=== PATIENT | female | born 1945 | race Caucasian/White ===

== ENCOUNTER 2019-03-06 16:37 | Emergency (ER) | payer MEDICARE, OTHER ==
[~2019-03-06] VITALS: Ht 157.5 cm; Wt 95.9 kg
[2019-03-06] MEDS ORDERED: morphine INJ 10 MG/ML 1ML (SYR OR VIAL) IVP STA (17:07)
[2019-03-06 17:15] LABS: HEMATOCRIT 32 % (35-52); HEMOGLOBIN 10.3 G/DL (11.5-16.0); MEAN CORPUSCULAR HEMOGLOBIN 28 PG (25-34); MEAN CORPUSCULAR HGB CONC 32 G/DL (32-36); MEAN CORPUSCULAR VOLUME 88 FL (80-99); PLATELET COUNT 187 10^3/uL (130-400); RED CELL DISTRIBUTION WIDTH 15.2 % (10.0-14.5); WHITE BLOOD COUNT 5.4 10^3/uL (4.3-11.0)
--- NOTE | 2019-03-06 17:15 | ED Lower Extremity ---
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 She had a heart cath Saturday at [facility] where they went in through that leg. She has been doing well since then but then tonight after grocery shopping with her he got home and she had sudden onset of pain in her right leg. She was having pain so bad that she was having difficulty walking into the house. She states that she had no trauma to her leg. Her right lower extremity was cool to the touch and darker in color. She had tried elevating her leg at home but it was not helping. She came to the emergency department to be evaluated. She denies any fever or chills. She had not been having pain like this until tonight. She has been having swelling in both of her legs but that went down after she had been prescribed a diuretic and was taking it. She does have calf pain on the right leg now as well. Allergies and Home Medications Allergies Coded Allergies: acetaminophen (Verified Allergy, Unknown, 03/06/19) amoxicillin (Verified Allergy, Unknown, 03/06/19) azithromycin (Verified Allergy, Unknown, 03/06/19) baclofen (Verified Allergy, Unknown, 03/06/19) clarithromycin (Verified Allergy, Unknown, 03/06/19) lisinopril (Verified Allergy, Unknown, 03/06/19) meperidine (Verified Allergy, Unknown, 03/06/19) propoxyphene (Verified Allergy, Unknown, 03/06/19) Patient Home Medication List Home Medication List Reviewed: Yes Review of Systems Constitutional: No chills, No fever EENTM: no symptoms reported Respiratory: no symptoms reported Cardiovascular: no symptoms reported Gastrointestinal: no symptoms reported Genitourinary: no symptoms reported Musculoskeletal: see HPI Skin: see HPI, change in color (RLE was darker in color this evening with the pain) Past Lhkoofj-Drrkjt-Dguhns Hx Past Med/Social Hx: Reviewed Nursing Past Med/Soc Hx Patient Social History Recent Foreign Travel: No Contact w/Someone Who Travel: No Past Medical History Surgeries: Yes CABG, Coronary Stent, Open Heart Surgery Cardiac: Yes Coronary Artery Disease, High Cholesterol, Hypertension Endocrine: Yes Diabetes, Non-Insulin dep Physical Exam Vital Signs Vital Signs - First Documented 03/06/19 16:40 Temp 36.7 Pulse 84 Resp 14 B/P (MAP) 135/63 (87) Pulse Ox 98 O2 Delivery Room Air Capillary Refill : Height, Weight, BMI Height: '" Weight: lbs. oz. kg; BMI Method: General Appearance: WD/WN, mild distress HEENT: pharynx normal Neck: non-tender, full range of motion, supple, normal inspection Cardiovascular: regular rate, rhythm, other (unable to palpate DP or PT on RLE. 2/4 DP and PT on LLE. Using doppler still unable to find a pulse on RLE. ) Respiratory: chest non-tender, lungs clear, normal breath sounds Gastrointestinal: normal bowel sounds, soft, no pulsatile mass Legs: right leg pain Knees: right knee pain Ankles: right ankle pain Feet: right foot pain Neurologic/Tendon: normal sensation, normal motor functions Neurologic/Psychiatric: alert, normal mood/affect, oriented x 3 Skin: cool (RLE is cool to touch compared to LLE and has slower CR. Unable to find pulses in PT or DP even with doppler on right foot. ), other (dusky color on RLE compared to LLE and decreased CR on right compared to left. ) Progress/Results/Core Measures Results/Orders Lab Results Laboratory Tests Test 03/06/19 16:51 Range/Units White Blood Count 5.4 4.3-11.0 10^3/uL Red Blood Count 3.65 L 4.35-5.85 10^6/uL Hemoglobin 10.3 L 11.5-16.0 G/DL Hematocrit 32 L 35-52 % Mean Corpuscular Volume 88 80-99 FL Mean Corpuscular Hemoglobin 28 25-34 PG Mean Corpuscular Hemoglobin Concent 32 32-36 G/DL Red Cell Distribution Width 15.2 H 10.0-14.5 % Platelet Count 187 130-400 10^3/uL Mean Platelet Volume 10.0 7.4-10.4 FL Neutrophils (%) (Auto) 50 42-75 % Lymphocytes (%) (Auto) 36 12-44 % Monocytes (%) (Auto) 11 0-12 % Eosinophils (%) (Auto) 2 0-10 % Basophils (%) (Auto) 1 0-10 % Neutrophils # (Auto) 2.7 1.8-7.8 X 10^3 Lymphocytes # (Auto) 2.0 1.0-4.0 X 10^3 Monocytes # (Auto) 0.6 0.0-1.0 X 10^3 Eosinophils # (Auto) 0.1 0.0-0.3 10^3/uL Basophils # (Auto) 0.0 0.0-0.1 10^3/uL Prothrombin Time 13.0 12.2-14.7 SEC INR Comment 0.9 0.8-1.4 Activated Partial Thromboplast Time 29 24-35 SEC Sodium Level 138 135-145 MMOL/L Potassium Level 4.0 3.6-5.0 MMOL/L Chloride Level 97 L 98-107 MMOL/L Carbon Dioxide Level 23 21-32 MMOL/L Anion Gap 18 H 5-14 MMOL/L Blood Urea Nitrogen 24 H 7-18 MG/DL Creatinine 1.78 H 0.60-1.30 MG/DL Estimat Glomerular Filtration Rate 28 BUN/Creatinine Ratio 13 Glucose Level 166 H 70-105 MG/DL Calcium Level 9.8 8.5-10.1 MG/DL Corrected Calcium 9.8 8.5-10.1 MG/DL Total Bilirubin 0.5 0.1-1.0 MG/DL Aspartate Amino Transf (AST/SGOT) 34 5-34 U/L Alanine Aminotransferase (ALT/SGPT) 26 0-55 U/L Alkaline Phosphatase 89 40-136 U/L Total Protein 6.5 6.4-8.2 GM/DL Albumin 4.0 3.2-4.5 GM/DL My Orders Orders - DANITZA JARVIS MD Comprehensive Metabolic Panel (03/06/19 17:06) Cbc With Automated Diff (03/06/19 17:06) Protime With Inr (03/06/19 17:06) Partial Thromboplastin Time (03/06/19 17:06) Ed Iv/Invasive Line Start (03/06/19 17:06) Morphine Injection (Morphine Injection (03/06/19 17:07) Monitor-Rhythm Ecg Trace Only (03/06/19 17:08) Heparin Drip 46199 Unit/500ml (Heparin (03/06/19 17:43) Heparin (Bolus Per Protocol) (Heparin (B (03/06/19 17:45) Ns Iv 1000 Ml (Sodium Chloride 0.9%) (03/06/19 17:45) Medications Given in ED Current Medications Medications Dose Ordered Sig/Kristen Route Start Time Stop Time Status Last Admin Dose Admin Heparin Sodium (Porcine) 5,000 unit ONCE ONCE IV 03/06/19 17:45 03/06/19 17:46 DC 03/06/19 17:49 5,000 UNIT Heparin Sodium/ Dextrose 500 ml @ 0 mls/hr Q0M ONCE IV 03/06/19 17:43 03/06/19 17:46 DC 03/06/19 17:53 24 MLS/HR Vital Signs/I&O 03/06/19 16:40 Temp 36.7 Pulse 84 Resp 14 B/P (MAP) 135/63 (87) Pulse Ox 98 O2 Delivery Room Air Progress Progress Note #1: Progress Note check labs and try to do CT angiogram of RLE to evaluate the blood flow to the extremity since unable to palpate pulses in leg or find pulses by doppler in RLE either. Progress Note #2: Progress Note Labs show normal WBC count, anemia with Hgb of 10.3. Her Chemistry shows elevated Cr to 1.78 with GFR of 28 so will not be able to do CT angiogram. Ultrasound is not available here either. will contact [facility] to try and arrange transfer, especially since the weather is getting worse and will have problems with EMS transporting pt if the weather and roads get worse. 1717 d/speedy Dominguez at [facility] transfer center and he will get me in touch with the ED doc for a transfer. 1741 Dr. Mitchell from ED at [facility] called back and accepted pt in transfer. Critical Care Note Critical Care Total Time (minutes) 45 Progress 45 minutes of critical care time was spent with the patient. This time was excluding separately billable procedures. Time was spent in obtaining history from patient and family and reviewing outside records, ordering labs and reviewing results, ordering intervention and reviewing response, discussion with consultants and pt and family, documentation in the chart. She was at risk for losing her leg due to circulation. Departure Impression Primary Impression: Acute pain of right lower extremity Additional Impression: Pulseless disease Disposition: 02 XFER SHT-TRM HOSP Condition: Critical Transfer Transfer Reason: Exceeds level of care Time Spoke to Accepting Phy: 17:41 Transfer Progress Notes D/W Dr. Mitchell from the ED at [facility]. Since unable to locate pulses in RLE with palpation or doppler and she has Cr of 1.78 with GFR of 28 I am unable to perform a CT angiogram of the LE and I would still need to get her to a vascular surgeon for evaluation. I also have no ultrasound available. He accepted pt to the ED for evaluation. Will start IVF for hydration to help her Cr and GFR as well as heparin bolus and drip to help if there is a clot. Transfer Facility: [facility] Method of Transfer: EMS Departure-Patient Inst. Referrals: GENEVIEVE HUFF DO (PCP/Family) Primary Care Physician DANITZA JARVIS MD Mar 06, 2019 17:15
[2019-03-06 17:16] LABS: BASOPHILS % (AUTO) 1 % (0-10); EOSINOPHILS # (AUTO) 0.1 10^3/uL (0.0-0.3); EOSINOPHILS % (AUTO) 2 % (0-10); LYMPHOCYTES % (AUTO) 36 % (12-44); MONOCYTES # (AUTO) 0.6 X 10^3 (0.0-1.0); MONOCYTES % (AUTO) 11 % (0-12); NEUTROPHILS # (AUTO) 2.7 X 10^3 (1.8-7.8); NEUTROPHILS % (AUTO) 50 % (42-75)
[2019-03-06 17:21] LABS: INR 0.9 (0.8-1.4)
[2019-03-06 17:32] LABS: BILIRUBIN,TOTAL 0.5 MG/DL (0.1-1.0); CALCIUM 9.8 MG/DL (8.5-10.1); CREATININE SERUM 1.78 MG/DL (0.60-1.30); TOTAL PROTEIN 6.5 GM/DL (6.4-8.2)
[2019-03-06] MEDS ORDERED: HEParin DRIP 25000 UNIT/500ML 500 ML IV ONE (17:43)
[2019-03-06] MEDS ORDERED: NS IV 1000 ML 1,000 ML IV STA (17:45)
[2019-03-06] MEDS ORDERED: HEParin 1000 UNIT/ML (10ML VIAL) FOR BOLUS IV ONE (17:45)
[2019-03-06 18:05] VITALS: BP 143/56
== END 2019-03-06 18:05 | disposition short-term general hospital (02) ==
LOC: ER FS 16:40
DX: M79.604 Pain in right leg (principal); M31.4 Aortic arch syndrome [Takayasu]; I10 Essential (primary) hypertension; E78.00 Pure hypercholesterolemia, unspecified; I25.10 Atherosclerotic heart disease of native coronary artery without angina pectoris; E11.9 Type 2 diabetes mellitus without complications; Z88.6 Allergy status to analgesic agent; Z95.5 Presence of coronary angioplasty implant and graft; Z88.0 Allergy status to penicillin; Z88.2 Allergy status to sulfonamides; Z88.1 Allergy status to other antibiotic agents; Z95.1 Presence of aortocoronary bypass graft
CPT/HCPCS: 36415; 80053; 85025; 85610; 85730; 93041

== ENCOUNTER 2019-07-28 21:53 | Emergency (ER) | payer MEDICARE, OTHER ==
[~2019-07-28] VITALS: Ht 157.5 cm; Wt 86.4 kg
--- OUTSIDE RECORDS SUMMARY | 2019-07-28 21:59 | XMS REPORT | Continuity of Care Document ---
Author Organization Unknown Address Unknown Phone Unavailable Allergies Active Description Code Type Severity Reaction Onset Reported/Identified Relationship to Patient Clinical Status Yes acetaminophen [id number] Torin g Allergy Unknown N/A 03/06/2019 Yes amoxicillin [id number] Drug Aller gy Unknown N/A 03/06/2019 Yes azithromycin [id number] Drug Allergy Unknown N/A 03/06/2019 Yes baclofen [id number] Drug Allergy Unknown N/A 03/06/[id number] ug Allergy Unknown N/A 03/06/2019 Yes lisinopril [id number] Drug Allerg y Unknown N/A 03/06/2019 Yes meperidine [id number] Drug Allerg y Unknown N/A 03/06/2019 Yes propoxyphene [id number] Drug Allergy Unknown N/A 03/06/2019 Medications There is no data. Problems Date Dx Coded Attending Type Code Diagnosis Diagnosed By 03/06/2019 DANITZA JARVIS MD, Ot E11.9 TYPE 2 DIABETES MELLITUS WITHOUT COMPLIC 03/06/2019 DANITZA JARVIS MD, Ot E78.0 0 PURE HYPERCHOLESTEROLEMIA, UNSPECIFIED 03/06/2019 DANITZA JARVIS MD, Ot I10 ESSENTIAL (PRIMARY) HYPERTENSION 03/06/2019 DANITZA JARVIS MD, Ot I25.1 0 ATHSCL HEART DISEASE OF [place] CORONARY 03/06/2019 DANITZA JARVIS MD, Ot M31.4 AORTIC ARCH SYNDROME [[place]AYASU] 03/06/2019 DANITZA JARVIS MD, Ot M79.6 04 PAIN IN RIGHT LEG 03/06/2019 DANITZA JARVIS MD, Ot Z88.0 ALLERGY STATUS TO PENICILLIN 03/06/2019 DANITZA JARVIS MD, Ot Z88.1 ALLERGY STATUS TO OTHER ANTIBIOTIC AGENT 03/06/2019 DANITZA JARVIS MD, Ot Z88.2 ALLERGY STATUS TO SULFONAMIDES STATUS 03/06/2019 DANITZA JARVIS MD, Ot Z88.6 ALLERGY STATUS TO ANALGESIC AGENT STATUS 03/06/2019 DANITZA JARVIS MD, Ot Z95.1 PRESENCE OF AORTOCORONARY BYPASS GRAFT 03/06/2019 DANITZA JARVIS MD, Ot Z95.5 PRESENCE OF CORONARY ANGIOPLASTY IMPLANT 03/11/2019 DANITZA JARVIS MD, Ot E11.9 TYPE 2 DIABETES MELLITUS WITHOUT COMPLIC 03/11/2019 DANITZA JARVIS MD, Ot E78.0 0 PURE HYPERCHOLESTEROLEMIA, UNSPECIFIED 03/11/2019 DANITZA JARVIS MD, Ot I10 ESSENTIAL (PRIMARY) HYPERTENSION 03/11/2019 DANITZA JARVIS MD, Ot I25.1 0 ATHSCL HEART DISEASE OF [place] CORONARY 03/11/2019 DANITZA JARVIS MD, Ot M31.4 AORTIC ARCH SYNDROME [[place]U] 03/11/2019 DANITZA JARVIS MD, Ot M79.6 04 PAIN IN RIGHT LEG 03/11/2019 DANITZA JARVIS MD, Ot Z88.0 ALLERGY STATUS TO PENICILLIN 03/11/2019 DANITZA JARVIS MD, Ot Z88.1 ALLERGY STATUS TO OTHER ANTIBIOTIC AGENT 03/11/2019 DANITZA JARVIS MD, Ot Z88.2 ALLERGY STATUS TO SULFONAMIDES STATUS 03/11/2019 DANITZA JARVIS MD, Ot Z88.6 ALLERGY STATUS TO ANALGESIC AGENT STATUS 03/11/2019 DANITZA JARVIS MD, Ot Z95.1 PRESENCE OF AORTOCORONARY BYPASS GRAFT 03/11/2019 DANITZA JARVIS MD, Ot Z95.5 PRESENCE OF CORONARY ANGIOPLASTY IMPLANT Procedures There is no data. Results Test Result Range Complete blood count (CBC) with automate d white blood cell (WBC) differential - 03/06/19 16:51 Blood leukocytes automated count (number/volume) 5.4 10*3/uL 4.3-11.0 Blood erythrocytes automated count (number/volume) 3.65 10*6/uL 4.35-5.85 Venous blood hemoglobin measurement (mass/volume) 10.3 g/dL 11.5-16.0 Blood hematocrit (volume fraction) 32 % 35-52 Automated erythrocyte mean corpuscular volume 88 [ foz_us] 80-99 Automated erythrocyte mean corpuscular h emoglobin (mass per erythrocyte) 28 pg 25-34 Automated erythrocyte mean corpuscular h emoglobin concentration measurement (mass/volume) 32 g/dL 32-36 Automated erythrocyte distribution width ratio 15. 2 % 10.0- 14.5 Automated blood platelet count (count/volume) 187 10*3/uL 130-400 Automated blood platelet mean volume measurement 10.0 [foz_us] 7.4-10.4 Automated blood neutrophils/100 leukocytes 50 % 42-75 Automated blood lymphocytes/100 leukocytes 36 % 12-44 Blood monocytes/100 leukocytes 11 % 0-12 Automated blood eosinophils/100 leukocytes 2 % 0-10 Automated blood basophils/100 leukocytes 1 % 0-10 Blood neutrophils automated count (number/volume) 2.7 10*3 1.8-7.8 Blood lymphocytes automated count (number/volume) 2.0 10*3 1.0-4.0 Blood monocytes automated count (number/volume) 0. 6 10*3 0.0-1.0 Automated eosinophil count 0.1 10*3/uL 0 .0-0.3 Automated blood basophil count (count/volume) 0.0 10*3/uL 0.0-0.1 PT panel in platelet poor plasma by coag ulation assay - 03/06/19 16:51 Prothrombin time (PT) in platelet poor plasma by coagu lation assay 13.0 s 12.2-14.7 INR in platelet poor plasma or blood by coagulation as say 0.9 0.8-1.4 Activated partial thromboplastin time (a PTT) in platelet poor plasma bycoagulation assay - 03/06/19 16:51 Activated partial thromboplastin time (a PTT) in platelet poor plasma bycoagulation assay 29 s 24-35 Comprehensive metabolic panel - 03/06/19 16:51 Serum or plasma sodium measurement (moles/volume) 138 mmol/L 135-145 Serum or plasma potassium measurement (moles/volume) 4.0 mmol/L 3.6-5.0 Serum or plasma chloride measurement (moles/volume) 97 mmol/L 98-107 Carbon dioxide 23 mmol/L 21-32 Serum or plasma anion gap determination (moles/volume) 18 mmol/L 5-14 Serum or plasma urea nitrogen measurement (mass/volume ) 24 mg/dL 7-18 Serum or plasma creatinine measurement (mass/volume) 1.78 mg/dL 0.60-1.30 Serum or plasma urea nitrogen/creatinine mass ratio 13 NRG Serum or plasma creatinine measurement w ith calculation of estimated glomerular filtration rate 28 NRG Serum or plasma glucose measurement (mass/volume) 166 mg/dL 70-105 Serum or plasma calcium measurement (mass/volume) 9.8 mg/dL 8.5-10.1 Serum or plasma total bilirubin measurement (mass/volu me) 0.5 mg/dL 0.1-1.0 Serum or plasma alkaline phosphatase smitha surement (enzymatic activity/volume) 89 U/L 40-136 Serum or plasma aspartate aminotransfera se measurement (enzymatic activity/volume) 34 U/L 5-34 Serum or plasma alanine aminotransferase measurement (enzymatic activity/volume) 26 U/L 0-55 Serum or plasma protein measurement (mass/volume) 6.5 g/dL 6.4-8.2 Serum or plasma albumin measurement (mass/volume) 4.0 g/dL 3.2-4.5 CALCIUM CORRECTED 9.8 mg/dL 8.5-10.1 Encounters ACCT No. Visit Date/Time Discharge Status Pt. Type Provider Facility Loc./Unit Complaint [id number] 03/06/2019 16:40:00 020 18:05:00 DIS Emergency SIMONA YANEZ, DANITZA Karimi [facility] ER FS LEG PAIN
[2019-07-28 22:02] VITALS: BP 129/72
--- NOTE | 2019-07-28 22:06 | ED EENT ---
History of Present Illness General Chief Complaint: Eye Problems Stated Complaint: EYE BLEEDING Source: patient Exam Limitations: no limitations History of Present Illness Date Seen by Provider: Jul 28, 2019 Time Seen by Provider: 22:00 Initial Comments Patient resents ER by private conveyance with chief complaint that about half an hour ago she noticed some bleeding out of her left eye. Earlier today she had surgery for an eye lift by Dr. Duval, ophthalmology. She is on Plavix but no blood thinners. She tried calling his office but could not get a answer and they redirected her to the emergency room. The bleeding seems. At this time. She's not having any difficulty with her vision. She takesTheradrops, saline and gentamicin ointment which she has been using. She's not having any significant pain. She does have some after effects of anesthesia still feeling a little lightheaded. No fevers cough chills, sick contacts or recent distant travel to endemic areas. Allergies and Home Medications Allergies Coded Allergies: acetaminophen (Verified Allergy, Unknown, 03/06/19) amoxicillin (Verified Allergy, Unknown, 03/06/19) azithromycin (Verified Allergy, Unknown, 03/06/19) baclofen (Verified Allergy, Unknown, 03/06/19) clarithromycin (Verified Allergy, Unknown, 03/06/19) lisinopril (Verified Allergy, Unknown, 03/06/19) meperidine (Verified Allergy, Unknown, 03/06/19) propoxyphene (Verified Allergy, Unknown, 03/06/19) Patient Home Medication List Home Medication List Reviewed: Yes Review of Systems Review of Systems Constitutional: No chills, No fever Eyes: See HPI; Denies Blindness, Denies Blurred Vision Ears: Denies Dizziness, Denies Pain Nose: denies clots, denies congestion Mouth: denies clots Throat: denies pain, denies swelling Respiratory: No cough, No short of breath All Other Systems Reviewed Negative Unless Noted: Yes Past Xdcsufo-Hnwugt-Wmlikv Hx Patient Social History Alcohol Use: Denies Use Recreational Drug Use: No Smoking Status: Never a Smoker 2nd Hand Smoke Exposure: No Recent Foreign Travel: No Contact w/Someone Who Travel: No Recent Hopitalizations: No Seasonal Allergies Seasonal Allergies: No Past Medical History Surgeries: Yes CABG, Coronary Stent, Open Heart Surgery Respiratory: No Cardiac: Yes Coronary Artery Disease, High Cholesterol, Hypertension Neurological: No Genitourinary: Yes (Chronic kidney disease) Gastrointestinal: No Musculoskeletal: No Endocrine: Yes Diabetes, Non-Insulin dep HEENT: No Cancer: No Psychosocial: No Integumentary: No Physical Exam Vital Signs Vital Signs - First Documented 07/28/19 22:02 Temp 36.3 Pulse 93 B/P (MAP) 129/72 (91) Pulse Ox 95 O2 Delivery Room Air Height, Weight, BMI Height: '" Weight: lbs. oz. kg; 38.00 BMI Method: General Appearance: WD/WN, no apparent distress Eyes: right eye normal inspection; left eye other (hemostatic but there is some dried blood from under the eyelids. No overt foreign body or laceration seen.); bilateral eye PERRL, bilateral eye EOMI Ears: bilateral ear auricle normal, bilateral ear canal normal Nose: normal inspection; No active bleeding, No discharge, No dried blood Mouth/Throat: normal mouth inspection, pharynx normal Neck: full range of motion, supple, normal inspection Cardiovascular: normal peripheral pulses, regular rate, rhythm Respiratory: no respiratory distress, no accessory muscle use Neurologic/Psychiatric: alert, normal mood/affect, oriented x 3 Progress/Results/Core Measures Results/Orders Lab Results Laboratory Tests Test 07/28/19 22:20 Range/Units White Blood Count 4.6 4.3-11.0 10^3/uL Red Blood Count 4.07 L 4.35-5.85 10^6/uL Hemoglobin 11.2 L 11.5-16.0 G/DL Hematocrit 33 L 35-52 % Mean Corpuscular Volume 82 80-99 FL Mean Corpuscular Hemoglobin 28 25-34 PG Mean Corpuscular Hemoglobin Concent 34 32-36 G/DL Red Cell Distribution Width 14.2 10.0-14.5 % Platelet Count 128 L 130-400 10^3/uL Mean Platelet Volume 11.7 H 7.4-10.4 FL My Orders Orders - GENE BUENO Cbc No Diff (07/28/19 22:18) Vital Signs/I&O 07/28/19 22:02 Temp 36.3 Pulse 93 B/P (MAP) 129/72 (91) Pulse Ox 95 O2 Delivery Room Air Progress Progress Note #1: Time: 22:06 Progress Note The bleeding seems to have ceased at this time. There is a small amount of dried blood on her shirt which she says is the extent of her bleeding. Progress Note #2: Time: 22:12 Progress Note Called his cellphone 3 times but he does not have voicemail set up. We called his house with a number we have listed and we have called his clinic and were unable to contact anyone. We'll continue to monitor the patient for a short while and if it does not restart bleeding and we cannot get a hold of Dr. Duval we may allow her to go home and follow-up with him during business hours. Plan to check a CBC and if she is not critically anemic and we have not heard back from ophthalmology and she is still hemostatic then we will allow her to discharge home. Progress Note #3: Time: 22:32 Progress Note [facility] but they do not have a alternative number. Patient's CBC is unremarkable. She's not having any bleeding at this time. Called cell phone one more time with no voicemail. Recommend she continue therapy and follow-up in the morning. If she has recurrence of bleeding she is to return to the ER and we will address it at that time. Departure Impression Primary Impression: Postoperative hemorrhage of left eye following ophthalmic procedure Additional Impression: Eyelid hemorrhage Disposition: 01 HOME, SELF-CARE Condition: Stable Departure-Patient Inst. Decision time for Depature: 22:33 Referrals: GENEVIEVE HUFF DO (PCP/Family) Primary Care Physician Patient Instructions: Bleeding After Surgery, How to Use Eye Ointment Add. Discharge Instructions: If you don't have any further bleeding then please follow-up with Dr. Duval tomorrow morning during business hours. He can be reached at [phone]. If you have recurrence of bleeding and you cannot get it to stop within 10-20 minutes by sitting up then please return to the ER. Continue taking your medications as prescribed. Do not discontinue your Plavix at this time. All discharge instructions reviewed with patient and/or family. Voiced understanding. GENE BUENO Jul 28, 2019 22:06
[2019-07-28 22:29] LABS: HEMOGLOBIN 11.2 G/DL (11.5-16.0); WHITE BLOOD COUNT 4.6 10^3/uL (4.3-11.0)
[2019-07-28 22:30] LABS: MEAN PLATELET VOLUME 11.7 FL (7.4-10.4); RED CELL DISTRIBUTION WIDTH 14.2 % (10.0-14.5)
== END 2019-07-28 22:39 | disposition home or self-care (01) ==
LOC: EDUNIT# 21:53 → ER FS 21:54
DX: H59.312 Postprocedural hemorrhage of left eye and adnexa following an ophthalmic procedure (principal); E11.22 Type 2 diabetes mellitus with diabetic chronic kidney disease; I12.9 Hypertensive chronic kidney disease with stage 1 through stage 4 chronic kidney disease, or unspecified chronic kidney disease; N18.9 Chronic kidney disease, unspecified; Z79.02 Long term (current) use of antithrombotics/antiplatelets; Z88.6 Allergy status to analgesic agent; Z88.1 Allergy status to other antibiotic agents; Z88.5 Allergy status to narcotic agent; Z88.8 Allergy status to other drugs, medicaments and biological substances; Z95.1 Presence of aortocoronary bypass graft; Z95.5 Presence of coronary angioplasty implant and graft
CPT/HCPCS: 36415; 85027; 99282

== ENCOUNTER 2019-07-31 00:39 | Emergency (ER) | payer MEDICARE, OTHER ==
--- OUTSIDE RECORDS SUMMARY | 2019-07-31 00:47 | XMS REPORT | Continuity of Care Document ---
Author Organization Unknown Address Unknown Phone Unavailable Allergies Active Description Code Type Severity Reaction Onset Reported/Identified Relationship to Patient Clinical Status Yes acetaminophen [id number] Torin g Allergy Unknown N/A 03/06/2019 Yes amoxicillin [id number] Drug Aller gy Unknown N/A 03/06/2019 Yes azithromycin [id number] Drug Allergy Unknown N/A 03/06/2019 Yes baclofen [id number] Drug Allergy Unknown N/A 03/06/[id number] ug Allergy Unknown N/A 03/06/2019 Yes lisinopril [id number] Drug Allerg y Unknown N/A 03/06/2019 Yes meperidine [id number] Drug Allerg y Unknown N/A 03/06/2019 Yes propoxyphene [id number] Drug Allergy Unknown N/A 03/06/2019 Medications There is no data. Problems Date Dx Coded Attending Type Code Diagnosis Diagnosed By 03/06/2019 DANITZA JARVIS MD, Ot E11.9 TYPE 2 DIABETES MELLITUS WITHOUT COMPLIC 03/06/2019 DANITZA JARVIS MD, Ot E78.0 0 PURE HYPERCHOLESTEROLEMIA, UNSPECIFIED 03/06/2019 DANITZA JARVIS MD, Ot I10 ESSENTIAL (PRIMARY) HYPERTENSION 03/06/2019 DANITZA JARVIS MD, Ot I25.1 0 ATHSCL HEART DISEASE OF [place] CORONARY 03/06/2019 DANITZA JARVIS MD, Ot M31.4 [...] OF AORTOCORONARY BYPASS GRAFT 03/06/2019 DANITZA JARVIS MD Ot Z95.5 PRESENCE OF CORONARY ANGIOPLASTY IMPLANT 03/11/2019 DANITZA JARVIS MD Ot E11.9 TYPE 2 DIABETES MELLITUS WITHOUT COMPLIC 03/11/2019 DANITZA JARVIS MD, Ot E78.0 0 PURE HYPERCHOLESTEROLEMIA, UNSPECIFIED 03/11/2019 DANITZA JARVIS MD Ot I10 ESSENTIAL (PRIMARY) HYPERTENSION 03/11/2019 DANITZA JARVIS MD, Ot I25.1 0 ATHSCL HEART DISEASE OF [place] CORONARY 03/11/2019 DANITZA JARVIS MD, Ot M31.4 AORTIC ARCH SYNDROME [[place]AY[place]U] 03/11/2019 DANITZA JARVIS MD, Ot M79.6 04 PAIN IN RIGHT LEG 03/11/2019 DANITZA JARVIS MD, Ot Z88.0 ALLERGY STATUS TO PENICILLIN 03/11/2019 DANITZA JARVIS MD Ot Z88.1 ALLERGY STATUS TO OTHER ANTIBIOTIC AGENT 03/11/2019 DANITZA JARVIS MD, Ot Z88.2 ALLERGY STATUS TO SULFONAMIDES STATUS 03/11/2019 DANITZA JARVIS MD, Ot Z88.6 ALLERGY STATUS TO ANALGESIC AGENT STATUS 03/11/2019 DANITZA JARVIS MD, Ot Z95.1 PRESENCE OF AORTOCORONARY BYPASS GRAFT 03/11/2019 DANITZA JARVIS MD Ot Z95.5 PRESENCE OF CORONARY ANGIOPLASTY IMPLANT 07/30/2019 GENE BUENO MD Ot 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 9 HYPERTENSIVE CHRONIC KIDNEY DISEASE W ST 07/30/2019 GENE BUENO MD Ot N18. 9 CHRONIC KIDNEY DISEASE, UNSPECIFIED 07/30/2019 GENE BUENO MD Ot Z79. 02 USP (CURRENT) USE OF ANTITHROMBOTI 07/30/2019 GENE BUENO MD Ot Z88. 1 ALLERGY STATUS TO OTHER ANTIBIOTIC AGENT 07/30/2019 GENE BUENO MD, Ot Z88. 5 ALLERGY STATUS TO NARCOTIC AGENT STATUS 07/30/2019 GENE BUENO MD, Ot Z88. 6 ALLERGY STATUS TO ANALGESIC AGENT STATUS 07/30/2019 GENE BUENO MD, Ot Z88. 8 ALLERGY STATUS TO OTH DRUG/MEDS/BIOL SUB 07/30/2019 GENE BUENO MD, Ot Z95. 1 PRESENCE OF AORTOCORONARY BYPASS GRAFT 07/30/2019 GENE BUENO MD, Ot Z95. 5 PRESENCE OF CORONARY ANGIOPLASTY IMPLANT Procedures There [...] g/dL 3.2-4.5 CALCIUM CORRECTED 9.8 mg/dL 8.5-10.1 Automated blood complete blood count (he mogram) panel - 07/28/19 22:20 Blood leukocytes automated count (number/volume) 4.6 10*3/uL 4.3-11.0 Blood erythrocytes automated count (number/volume) 4.07 10*6/uL 4.35-5.85 Venous blood hemoglobin measurement (mass/volume) 11.2 g/dL 11.5-16.0 Blood hematocrit (volume fraction) 33 % 35-52 Automated erythrocyte mean corpuscular volume 82 [ foz_us] 80-99 Automated erythrocyte mean corpuscular h emoglobin (mass per erythrocyte) 28 pg 25-34 Automated erythrocyte mean corpuscular h emoglobin concentration measurement (mass/volume) 34 g/dL 32-36 Automated erythrocyte distribution width ratio 14. 2 % 10.0- 14.5 Automated blood platelet count (count/volume) 128 10*3/uL 130-400 Automated blood platelet mean volume measurement 11.7 [foz_us] 7.4-10.4 Encounters ACCT No. Visit Date/Time Discharge Status Pt. Type Provider Facility Loc./Unit Complaint [id number] 07/28/2019 21:54:00 020 22:39:00 DIS Outpatient XIMENA YANEZ, GENE Saenz [facility] ER FS EYE BLEEDING [id number] 03/06/2019 16:40:00 020 18:05:00 DIS Emergency DANITZA JARVIS MD [facility] ER FS LEG PAIN
[2019-07-31 01:01] LABS: BASOPHILS % (AUTO) 1 % (0-10); EOSINOPHILS # (AUTO) 0.1 10^3/uL (0.0-0.3); EOSINOPHILS % (AUTO) 2 % (0-10); HEMATOCRIT 31 % (35-52); HEMOGLOBIN 10.4 G/DL (11.5-16.0); LYMPHOCYTES # (AUTO) 1.1 X 10^3 (1.0-4.0); LYMPHOCYTES % (AUTO) 32 % (12-44); MEAN CORPUSCULAR HEMOGLOBIN 28 PG (25-34); MEAN CORPUSCULAR HGB CONC 33 G/DL (32-36); MEAN CORPUSCULAR VOLUME 84 FL (80-99); MEAN PLATELET VOLUME 12.1 FL (7.4-10.4); MONOCYTES # (AUTO) 0.3 X 10^3 (0.0-1.0); MONOCYTES % (AUTO) 9 % (0-12); NEUTROPHILS % (AUTO) 57 % (42-75); PLATELET COUNT 116 10^3/uL (130-400); RED CELL DISTRIBUTION WIDTH 14.3 % (10.0-14.5); WHITE BLOOD COUNT 3.6 10^3/uL (4.3-11.0)
--- NOTE | 2019-07-31 01:11 | ED General ---
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 She says that her home glucose monitor was reading "high". She states that she takes metformin and insulin. She is alert and oriented 4, calm, and appears to be in no distress. She denies headache, neck pain, chest pain, shortness of breath, abdominal or back pain, fevers or chills, nausea or vomiting, dizziness or syncope. She states that she normally feels this way when her blood sugars to low. Initial accu-check is greater than 600. She mentions that her blood sugar has been reading as "high" for the last few days and that she has not checked her blood sugar in several days prior to that. She reports that she has been compliant with her medications including her metformin and insulin. She denies ever being kept in the hospital overnight for high blood sugar. The pt's creatinine is noted to be slightly elevated today but is lower than the previous value in February of 1.78. Timing/Duration: 1-3 Hours Severity: Moderate Associated Systoms: Denies Symptoms Allergies and Home Medications Allergies Coded Allergies: acetaminophen (Verified Allergy, Unknown, 03/06/19) amoxicillin (Verified Allergy, Unknown, 03/06/19) azithromycin (Verified Allergy, Unknown, 03/06/19) baclofen (Verified Allergy, Unknown, 03/06/19) clarithromycin (Verified Allergy, Unknown, 03/06/19) lisinopril (Verified Allergy, Unknown, 03/06/19) meperidine (Verified Allergy, Unknown, 03/06/19) propoxyphene (Verified Allergy, Unknown, 03/06/19) Patient Home Medication List Home Medication List Reviewed: Yes Review of Systems Review of Systems Constitutional: weakness EENTM: no symptoms reported Respiratory: no symptoms reported Cardiovascular: no symptoms reported Gastrointestinal: no symptoms reported Genitourinary: no symptoms reported Musculoskeletal: no symptoms reported Skin: no symptoms reported Psychiatric/Neurological: No Symptoms Reported Hematologic/Lymphatic: No Symptoms Reported Immunological/Allergic: no symptoms reported All Other Systems Reviewed Negative Unless Noted: Yes Past Wgkowbu-Rgskas-Vxolll Hx Past Med/Social Hx: Reviewed Nursing Past Med/Soc Hx Patient Social History Alcohol Use: Denies Use Recreational Drug Use: No Smoking Status: Never a Smoker 2nd Hand Smoke Exposure: No Recent Foreign Travel: No Contact w/Someone Who Travel: No Recent Infectious Disease Expo: No Recent Hopitalizations: No Physical Abuse: No Sexual Abuse: No Seasonal Allergies Seasonal Allergies: No Past Medical History Surgeries: Yes CABG, Coronary Stent, Eye Surgery, Open Heart Surgery Respiratory: No Cardiac: Yes Coronary Artery Disease, High Cholesterol, Hypertension Neurological: No Genitourinary: Yes (Chronic kidney disease) Gastrointestinal: No Musculoskeletal: No Endocrine: Yes Diabetes, Non-Insulin dep HEENT: No Cancer: No Psychosocial: No Integumentary: No Physical Exam Vital Signs Vital Signs - First Documented 07/31/19 00:44 Temp 37.0 Pulse 102 Resp 18 B/P (MAP) 169/107 (127) Pulse Ox 97 O2 Delivery Room Air Capillary Refill : Less Than 3 Seconds Height, Weight, BMI Height: '" Weight: lbs. oz. kg; 34.00 BMI Method: General Appearance: No Apparent Distress, WD/WN Eyes: Bilateral Eye Normal Inspection, Bilateral Eye PERRL, Bilateral Eye EOMI HEENT: PERRL/EOMI, Pharynx Normal Neck: Full Range of Motion, Non Tender Respiratory: Lungs Clear, Normal Breath Sounds, No Accessory Muscle Use, No Respiratory Distress Cardiovascular: Regular Rate, Rhythm, No Edema, No Murmur Gastrointestinal: Normal Bowel Sounds, Non Tender, Soft Extremity: Normal Capillary Refill, Non Tender Neurologic/Psychiatric: Alert, Oriented x3, No Motor/Sensory Deficits, Normal Mood/Affect Skin: Normal Color, Warm/Dry Progress/Results/Core Measures Suspected Sepsis Recent Fever Within 48 Hours: No Infection Criteria Present: None New/Unexplained Altered Menta: No Sepsis Screen: No Definite Risk SIRS Temperature: Pulse: 102 Respiratory Rate: 18 Laboratory Tests 07/31/19 00:50: White Blood Count 3.6L Blood Pressure 169 /107 Mean: 127 Laboratory Tests 07/31/19 00:50: Creatinine 1.55H, Platelet Count 116L, Total Bilirubin 0.2 Results/Orders Lab Results Laboratory Tests Test 07/31/19 00:50 07/31/19 00:55 07/31/19 02:05 Range/Units White Blood Count 3.6 L 4.3-11.0 10^3/uL Red Blood Count 3.71 L 4.35-5.85 10^6/uL Hemoglobin 10.4 L 11.5-16.0 G/DL Hematocrit 31 L 35-52 % Mean Corpuscular Volume 84 80-99 FL Mean Corpuscular Hemoglobin 28 25-34 PG Mean Corpuscular Hemoglobin Concent 33 32-36 G/DL Red Cell Distribution Width 14.3 10.0-14.5 % Platelet Count 116 L 130-400 10^3/uL Mean Platelet Volume 12.1 H 7.4-10.4 FL Neutrophils (%) (Auto) 57 42-75 % Lymphocytes (%) (Auto) 32 12-44 % Monocytes (%) (Auto) 9 0-12 % Eosinophils (%) (Auto) 2 0-10 % Basophils (%) (Auto) 1 0-10 % Neutrophils # (Auto) 2.0 1.8-7.8 X 10^3 Lymphocytes # (Auto) 1.1 1.0-4.0 X 10^3 Monocytes # (Auto) 0.3 0.0-1.0 X 10^3 Eosinophils # (Auto) 0.1 0.0-0.3 10^3/uL Basophils # (Auto) 0.0 0.0-0.1 10^3/uL Sodium Level 130 L 135-145 MMOL/L Potassium Level 5.2 H 3.6-5.0 MMOL/L Chloride Level 95 L 98-107 MMOL/L Carbon Dioxide Level 22 21-32 MMOL/L Anion Gap 13 5-14 MMOL/L Blood Urea Nitrogen 24 H 7-18 MG/DL Creatinine 1.55 H 0.60-1.30 MG/DL Estimat Glomerular Filtration Rate 33 BUN/Creatinine Ratio 15 Glucose Level 714 *H 70-105 MG/DL Glucometer > 600 *H 548 *H 70-110 MG/DL Calcium Level 8.9 8.5-10.1 MG/DL Corrected Calcium 9.2 8.5-10.1 MG/DL Total Bilirubin 0.2 0.1-1.0 MG/DL Aspartate Amino Transf (AST/SGOT) 31 5-34 U/L Alanine Aminotransferase (ALT/SGPT) 22 0-55 U/L Alkaline Phosphatase 77 40-136 U/L Total Protein 6.1 L 6.4-8.2 GM/DL Albumin 3.6 3.2-4.5 GM/DL Troponin I < 0.30 <0.30 NG/ML My Orders Orders - ELADIO SALEH DO Cbc With Automated Diff (07/31/19 00:57) Comprehensive Metabolic Panel (07/31/19 00:57) Ed Iv/Invasive Line Start (07/31/19 00:58) Ekg Tracing (07/31/19 01:03) Continuous Ekg Monitoring (07/31/19 01:03) Troponin I Fs (07/31/19 01:03) Ns Iv 1000 Ml (Sodium Chloride 0.9%) (07/31/19 01:15) Insulin (Regular) Human (Humulin R (Per (07/31/19 01:30) Accucheck Stat ONCE (07/31/19 01:43) Insulin (Regular) Human (Humulin R (Per (07/31/19 01:45) Medications Given in ED Current Medications Medications Dose Ordered Sig/Kristen Route Start Time Stop Time Status Last Admin Dose Admin Insulin Human Regular 10 unit ONCE ONCE IV 07/31/19 01:30 07/31/19 01:31 DC 07/31/19 01:30 10 UNIT Insulin Human Regular 10 unit ONCE ONCE IV 07/31/19 01:45 07/31/19 01:48 DC 07/31/19 02:09 10 UNIT Vital Signs/I&O 07/31/19 00:44 Temp 37.0 Pulse 102 Resp 18 B/P (MAP) 169/107 (127) Pulse Ox 97 O2 Delivery Room Air Capillary Refill : Less Than 3 Seconds Blood Pressure Mean: 127 Progress Note : Progress Note @0235 - Glucose now 400. Patient advised to check her blood sugar regularly at home and to continue to take her medications as directed. Advised patient to follow up with her PCP in the next 2-3 days and to return to the emergency Department immediately for new or worsening symptoms. The patient expresses verbal understanding and agreement with the plan and is stable for discharge. ECG Comment EKG@0116 - Sinus tachycardia, rate of 106, normal axis, no acute ischemic findings noted, no STEMI, reviewed and interpreted by myself Departure Impression Primary Impression: Hyperglycemia Disposition: 01 HOME, SELF-CARE Condition: Stable Departure-Patient Inst. Decision time for Depature: 02:37 Referrals: GENEVIEVE HUFF DO (PCP/Family) Primary Care Physician Patient Instructions: Hyperglycemia, Adult Add. Discharge Instructions: Follow-up with your doctor in the next 1-2 days. Check her blood sugar frequently. Return to the emergency Department immediately for new or worsening symptoms. ELADIO SALEH DO Jul 31, 2019 01:10
[2019-07-31] MEDS ORDERED: NS IV 1000 ML 1,000 ML IV SCH (01:15)
[2019-07-31 01:21] LABS: ALBUMIN 3.6 GM/DL (3.2-4.5); BILIRUBIN,TOTAL 0.2 MG/DL (0.1-1.0); CALCIUM 8.9 MG/DL (8.5-10.1); CREATININE SERUM 1.55 MG/DL (0.60-1.30); POTASSIUM 5.2 MMOL/L (3.6-5.0); TOTAL PROTEIN 6.1 GM/DL (6.4-8.2)
[2019-07-31] MEDS ORDERED: inSUlin (REGULAR) HUMAN 1 UNIT/0.01 ML (CHARGE PER UNIT) IJ ONE (01:30)
[2019-07-31] MEDS ORDERED: inSUlin (REGULAR) HUMAN 1 UNIT/0.01 ML (CHARGE PER UNIT) IV ONE ×2 (01:30→01:45)
[2019-07-31 02:45] VITALS: BP 149/77
== END 2019-07-31 02:50 | disposition home or self-care (01) ==
LOC: EDUNIT# 00:39 → ER FS 00:41
DX: E11.65 Type 2 diabetes mellitus with hyperglycemia (principal); I12.9 Hypertensive chronic kidney disease with stage 1 through stage 4 chronic kidney disease, or unspecified chronic kidney disease; N18.9 Chronic kidney disease, unspecified; E11.22 Type 2 diabetes mellitus with diabetic chronic kidney disease; Z79.4 Long term (current) use of insulin; Z88.1 Allergy status to other antibiotic agents; Z88.8 Allergy status to other drugs, medicaments and biological substances; Z88.5 Allergy status to narcotic agent; Z95.5 Presence of coronary angioplasty implant and graft; Z95.1 Presence of aortocoronary bypass graft
CPT/HCPCS: 36415; 80053; 82962; 84484; 85025; 93005

== ENCOUNTER 2019-08-09 02:09 | Emergency (ER) | payer MEDICARE, OTHER ==
[~2019-08-09] VITALS: Ht 157.5 cm; Wt 88.2 kg
--- OUTSIDE RECORDS SUMMARY | 2019-08-09 02:20 | XMS REPORT | Continuity of Care Document ---
Author Organization Unknown Address Unknown Phone Unavailable Allergies Active Description Code Type Severity Reaction Onset Reported/Identified Relationship to Patient Clinical Status Yes acetaminophen [id number] Torin g Allergy Unknown N/A 03/06/2019 Yes amoxicillin [id number] Drug Aller gy Unknown N/A 03/06/2019 Yes azithromycin [id number] Drug Allergy Unknown N/A 03/06/2019 Yes baclofen [id number] Drug Allergy Unknown N/A 03/06/[id number] ug Allergy Unknown N/A 03/06/2019 Yes lisinopril [id number] Drug Allerg y Unknown N/A 03/06/2019 Yes meperidine [id number] Drug Allerg y Unknown N/A 03/06/2019 Yes propoxyphene [id number] Drug Allergy Unknown N/A 03/06/2019 Medications There is no data. Problems Date Dx Coded Attending Type Code Diagnosis Diagnosed By 03/06/2019 DANTIZA JARVIS MD, Ot E11.9 TYPE 2 DIABETES MELLITUS WITHOUT COMPLIC 03/06/2019 DANITZA JARVIS MD, Ot E78.0 0 PURE HYPERCHOLESTEROLEMIA, UNSPECIFIED 03/06/2019 DANITZA JARVIS MD, Ot I10 ESSENTIAL (PRIMARY) HYPERTENSION 03/06/2019 DANITZA JARVIS MD, Ot I25.1 0 ATHSCL HEART DISEASE OF [place] CORONARY 03/06/2019 DANITZA JARVIS MD, Ot M31.4 [...] TO ANALGESIC AGENT STATUS 03/06/2019 DANITZA JARVIS MD Ot Z95.1 PRESENCE OF AORTOCORONARY BYPASS GRAFT 03/06/2019 DANITZA JARVIS MD Ot Z95.5 PRESENCE OF CORONARY ANGIOPLASTY IMPLANT 03/11/2019 DANITZA JARVIS MD Ot E11.9 TYPE 2 DIABETES MELLITUS WITHOUT COMPLIC 03/11/2019 DANITZA JARVIS MD, Ot E78.0 0 PURE HYPERCHOLESTEROLEMIA, UNSPECIFIED 03/11/2019 DANITZA JARVIS MD Ot I10 ESSENTIAL (PRIMARY) HYPERTENSION 03/11/2019 DANITZA JARVIS MD, Ot I25.1 0 ATHSCL HEART DISEASE OF [place] CORONARY 03/11/2019 DANITZA JARVIS MD, Ot M31.4 AORTIC ARCH SYNDROME [[place]] 03/11/2019 DANITZA JARVIS MD, Ot M79.6 04 PAIN IN RIGHT LEG 03/11/2019 DANITZA JARVIS MD, Ot Z88.0 ALLERGY STATUS TO PENICILLIN 03/11/2019 DANITZA JARVIS MD Ot Z88.1 ALLERGY STATUS TO OTHER ANTIBIOTIC AGENT 03/11/2019 DANITZA JARVIS MD Ot Z88.2 ALLERGY STATUS TO SULFONAMIDES STATUS 03/11/2019 DANITZA JARVIS MD, Ot Z88.6 ALLERGY STATUS TO ANALGESIC AGENT STATUS 03/11/2019 DANITZA JARVIS MD, Ot Z95.1 PRESENCE OF AORTOCORONARY BYPASS GRAFT 03/11/2019 DANITZA JARVIS MD Ot Z95.5 PRESENCE OF CORONARY ANGIOPLASTY IMPLANT 07/30/2019 GENE BUENO MD, Ot 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 9 HYPERTENSIVE CHRONIC KIDNEY DISEASE W ST 07/30/2019 GENE BUENO MD Ot N18. 9 CHRONIC KIDNEY DISEASE, UNSPECIFIED 07/30/2019 GENE BUENO MD Ot Z79. 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 1 ALLERGY STATUS TO OTHER [...] platelet mean volume measurement 11.7 [foz_us] 7.4-10.4 Capillary blood glucose measurement by g lucometer (mass/volume) - 07/31/19 00:50 Capillary blood glucose measurement by glucometer (mas s/volume) > mg/dL 70-110 Complete blood count (CBC) with automate d white blood cell (WBC) differential - 07/31/19 00:50 Blood leukocytes automated count (number/volume) 3.6 10*3/uL 4.3-11.0 Blood erythrocytes automated count (number/volume) 3.71 10*6/uL 4.35-5.85 Venous blood hemoglobin measurement (mass/volume) 10.4 g/dL 11.5-16.0 Blood hematocrit (volume fraction) 31 % 35-52 Automated erythrocyte mean corpuscular volume 84 [ foz_us] 80-99 Automated erythrocyte mean corpuscular h emoglobin (mass per erythrocyte) 28 pg 25-34 Automated erythrocyte mean corpuscular h emoglobin concentration measurement (mass/volume) 33 g/dL 32-36 Automated erythrocyte distribution width ratio 14. 3 % 10.0- 14.5 Automated blood platelet count (count/volume) 116 10*3/uL 130-400 Automated blood platelet mean volume measurement 12.1 [foz_us] 7.4-10.4 Automated blood neutrophils/100 leukocytes 57 % 42-75 Automated blood lymphocytes/100 leukocytes 32 % 12-44 Blood monocytes/100 leukocytes 9 % 0-12 Automated blood eosinophils/100 leukocytes 2 % 0-10 Automated blood basophils/100 leukocytes 1 % 0-10 Blood neutrophils automated count (number/volume) 2.0 10*3 1.8-7.8 Blood lymphocytes automated count (number/volume) 1.1 10*3 1.0-4.0 Blood monocytes automated count (number/volume) 0. 3 10*3 0.0-1.0 Automated eosinophil count 0.1 10*3/uL 0 .0-0.3 Automated blood basophil count (count/volume) 0.0 10*3/uL 0.0-0.1 Comprehensive metabolic panel - 07/31/19 00:50 Serum or plasma sodium measurement (moles/volume) 130 mmol/L 135-145 Serum or plasma potassium measurement (moles/volume) 5.2 mmol/L 3.6-5.0 Serum or plasma chloride measurement (moles/volume) 95 mmol/L 98-107 Carbon dioxide 22 mmol/L 21-32 Serum or plasma anion gap determination (moles/volume) 13 mmol/L 5-14 Serum or plasma urea nitrogen measurement (mass/volume ) 24 mg/dL 7-18 Serum or plasma creatinine measurement (mass/volume) 1.55 mg/dL 0.60-1.30 Serum or plasma urea nitrogen/creatinine mass ratio 15 NRG Serum or plasma creatinine measurement w ith calculation of estimated glomerular filtration rate 33 NRG Serum or plasma glucose measurement (mass/volume) 714 mg/dL 70-105 Serum or plasma calcium measurement (mass/volume) 8.9 mg/dL 8.5-10.1 Serum or plasma total bilirubin measurement (mass/volu me) 0.2 mg/dL 0.1-1.0 Serum or plasma alkaline phosphatase smitha surement (enzymatic activity/volume) 77 U/L 40-136 Serum or plasma aspartate aminotransfera se measurement (enzymatic activity/volume) 31 U/L 5-34 Serum or plasma alanine aminotransferase measurement (enzymatic activity/volume) 22 U/L 0-55 Serum or plasma protein measurement (mass/volume) 6.1 g/dL 6.4-8.2 Serum or plasma albumin measurement (mass/volume) 3.6 g/dL 3.2-4.5 CALCIUM CORRECTED 9.2 mg/dL 8.5-10.1 TROPONIN I FS - 07/31/19 00:55 TROPONIN I FS < 0.30 <0.30 Capillary blood glucose measurement by g lucometer (mass/volume) - 07/31/19 02:05 Capillary blood glucose measurement by glucometer (mas s/volume) 548 mg/dL 70-110 Capillary blood glucose measurement by g lucometer (mass/volume) - 07/31/19 02:31 Capillary blood glucose measurement by glucometer (mas s/volume) 401 mg/dL 70-110 Encounters ACCT No. Visit Date/Time Discharge Status Pt. Type Provider Facility Loc./Unit Complaint [id number] 07/31/2019 00:41:00 02:50:00 DIS Emergency THERESE HENDRICKS DO [facility] ER FS GENERAL WEAKNESS [id number] 07/28/2019 21:54:00 22:39:00 DIS Outpatient XIMENA YANEZ, GENE Saenz [facility] ER FS EYE BLEEDING [id number] 03/06/2019 16:40:00 020 18:05:00 DIS Emergency SIMONA YANEZ, DANITZA Hyde [facility] ER FS LEG PAIN
[2019-08-09] MEDS ORDERED: oxyCODONE/APAP 5/325MG (PERCOCET 5) TABLET PO ONE (02:45)
[2019-08-09] MEDS ORDERED: HYDR-83 PO (03:57)
[2019-08-09 04:02] VITALS: BP 110/67
--- NOTE | 2019-08-09 04:03 | ED Lower Extremity ---
General Chief Complaint: Lower Extremity Stated Complaint: LEFT LEG PAIN Nursing Triage Note: pt states she fell 2 weeks ago, noted to have large bruise to left lateral thigh, states both legs hurt but left worse. Nursing Sepsis Screen: No Definite Risk Source: patient Exam Limitations: no limitations History of Present Illness Date Seen by Provider: Aug 09, 2019 Time Seen by Provider: 02:30 Initial Comments Patient is a 74-year-old female presents with persistent left hip and left thigh pain after falling 2 weeks ago. Pain hurts pelvis and radiates left proximal thigh is worse weightbearing and palpation.Reports increasedswelling. Currently on Plavix. No chest pain shortness of breath. Exam, the patient is not a gross deformity rotation or shortening of the leg. There is a large abrasion and minimal swelling to the lateral aspect of left thigh and leg. Deep pain/tenderness inguinal fold and proximal thigh. Pulses are intact and symmetric bilaterally. Onset: just prior to arrival Pain/Injury Location: left hip, left leg, left thigh Method of Injury: fell Modifying Factors: Improves With Immobilization Allergies and Home Medications Allergies Coded Allergies: acetaminophen (Verified Allergy, Unknown, 03/06/19) amoxicillin (Verified Allergy, Unknown, 03/06/19) azithromycin (Verified Allergy, Unknown, 03/06/19) baclofen (Verified Allergy, Unknown, 03/06/19) clarithromycin (Verified Allergy, Unknown, 03/06/19) lisinopril (Verified Allergy, Unknown, 03/06/19) meperidine (Verified Allergy, Unknown, 03/06/19) propoxyphene (Verified Allergy, Unknown, 03/06/19) Home Medications Hydrocodone/Acetaminophen 1 Each Tablet, 1 EACH PO Q6H Prescribed by: CRUZ ISBELL on 08/09/19 0357 Patient Home Medication List Home Medication List Reviewed: Yes Review of Systems Constitutional: see HPI EENTM: see HPI Respiratory: see HPI Cardiovascular: see HPI Musculoskeletal: see HPI Skin: see HPI Psychiatric/Neurological: See HPI Past Bswvfhy-Hxvzgc-Beenfs Hx Past Med/Social Hx: Reviewed Nursing Past Med/Soc Hx Patient Social History Alcohol Use: Denies Use Recreational Drug Use: No Smoking Status: Never a Smoker 2nd Hand Smoke Exposure: No Recent Foreign Travel: No Contact w/Someone Who Travel: No Recent Infectious Disease Expo: No Recent Hopitalizations: No Physical Abuse: No Sexual Abuse: No Mistreated: No Fear: No Seasonal Allergies Seasonal Allergies: No Past Medical History Surgeries: Yes CABG, Coronary Stent, Eye Surgery, Open Heart Surgery Respiratory: No Cardiac: Yes Coronary Artery Disease, High Cholesterol, Hypertension Neurological: No Genitourinary: Yes (Chronic kidney disease) Gastrointestinal: No Musculoskeletal: No Endocrine: Yes Diabetes, Non-Insulin dep HEENT: No Cancer: No Psychosocial: No Integumentary: No Physical Exam Vital Signs Vital Signs - First Documented 08/09/19 02:22 Temp 36.3 Pulse 89 Resp 16 B/P (MAP) 125/61 (82) Pulse Ox 99 O2 Delivery Room Air Capillary Refill : Less Than 3 Seconds Height, Weight, BMI Height: '" Weight: lbs. oz. kg; 35.00 BMI Method: General Appearance: no apparent distress HEENT: PERRL/EOMI, normal ENT inspection Neck: non-tender, full range of motion, supple Cardiovascular: regular rate, rhythm Respiratory: chest non-tender, lungs clear Gastrointestinal: non tender, soft Back: normal inspection, no CVA tenderness Hips: left hip pain, left hip soft tissue tenderness, left hip swelling (ross deformity rotation or shortening of the leg. There is a large abrasion and minimal swelling to the lateral aspect of left thigh and leg. Deep pain/tenderness inguinal fold and proximal thigh. Pulses are intact and symmetric bilaterally) Knees: bilateral knee non-tender, bilateral knee normal inspection Ankles: bilateral ankle non-tender, bilateral ankle normal inspection Progress/Results/Core Measures Results/Orders My Orders Orders - CRUZ ISBELL DO Oxycodone/Apap 5/325mg Tablet (Percocet (08/09/19 02:45) Hip 2-3 View Left (08/09/19 02:36) Femur 2 View Left (08/09/19 02:36) Medications Given in ED Current Medications Medications Dose Ordered Sig/Kristen Route Start Time Stop Time Status Last Admin Dose Admin Oxycodone/ Acetaminophen 1 tab ONCE ONCE PO 08/09/19 02:45 08/09/19 02:47 DC 08/09/19 02:40 1 TAB Vital Signs/I&O 08/09/19 02:22 Temp 36.3 Pulse 89 Resp 16 B/P (MAP) 125/61 (82) Pulse Ox 99 O2 Delivery Room Air Blood Pressure Mean: 82 Departure Communication (Admissions) Left hip/femur: No acute fracture per radiology report XR left hip/femur: . Recommendations are supportive care with PCP follow-up for consideration of MRI and/or ultrasound if symptoms persist. Impression Primary Impression: Pain of left lower extremity Disposition: HOME, SELF-CARE Condition: Improved Departure-Patient Inst. Add. Discharge Instructions: Please take hydrocodone for pain and use your walker. Follow up wiht your PCP on Saturday for consideration of US of left leg. All discharge instructions reviewed with patient and/or family. Voiced understanding. Scripts Hydrocodone/Acetaminophen (Hydrocodone-Acetamin 5-325 mg) 1 Each Tablet 1 EACH PO Q6H, #15 TAB Prov: CRUZ ISBELL DO 08/09/19 CRUZ ISBELL DO Aug 09, 2019 04:03
--- NOTE | 2019-08-09 07:20 | Diagnostic Imaging Report ---
Indication: Fall 2 weeks ago with pain and bruising. Time of Exam: 2:46 AM Multiple views left femur were obtained. Alignment at the hip and knee is normal. Femur is intact. No fracture or dislocation is seen. IMPRESSION: No acute bony abnormality is detected. Dictated by: Dictated on workstation # [id number]
--- NOTE | 2019-08-09 07:21 | Diagnostic Imaging Report ---
INDICATION: Fall with left eye bruising. Time of Exam: 2:45 AM 2 views left hip demonstrate normal femoral acetabular alignment. Femoral head and neck are intact. No fractures are seen. IMPRESSION: No acute bony abnormality is detected. Dictated by: Dictated on workstation # [id number]
== END 2019-08-09 04:02 | disposition home or self-care (01) ==
LOC: EDUNIT# 02:09 → ER FS 02:13
DX: S70.312A Abrasion, left thigh, initial encounter (principal); Z79.02 Long term (current) use of antithrombotics/antiplatelets; Z88.6 Allergy status to analgesic agent; Z88.1 Allergy status to other antibiotic agents; Z88.5 Allergy status to narcotic agent; Z88.8 Allergy status to other drugs, medicaments and biological substances; Z95.5 Presence of coronary angioplasty implant and graft; Z95.1 Presence of aortocoronary bypass graft; W19.XXXA Unspecified fall, initial encounter
CPT/HCPCS: 73502; 73552

== ENCOUNTER 2019-09-03 21:04 | Emergency (ER) | payer MEDICARE, OTHER ==
[~2019-09-03] VITALS: Ht 157.5 cm; Wt 96.5 kg
[~2019-09-03 21:04] MED LIST: HYDR-83 PO
[2019-09-03] MEDS ORDERED: HYDROcodone/APAP 5 MG/325 MG (LORTAB) TAB PO ONE (21:30)
--- NOTE | 2019-09-03 21:30 | ED Abdominal Pain ---
General Chief Complaint: Abdominal/GI Problems Stated Complaint: ABD,RIB PAIN Source of Information: Patient Exam Limitations: No Limitations History of Present Illness Date Seen by Provider: Sep 03, 2019 Time Seen by Provider: 21:12 Initial Comments Patient presents to the ER by private conveyance from home with chief complaint of one week of right lower anterior rib pain radiating around towards her back. No itching. She says it started after one week ago when she was leaning over the wash machine getting some close out of the bottom and she felt a popping sensation in her right ribs. She's not having any shortness of breath or when she takes a deep breath and it does hurt. No other falls or injuries. No fevers chills cough shortness of breath nausea vomiting diarrhea or dysuria. She did take Tylenol earlier today. She has not followed up with her primary care doctor or had any imaging done anywhere. She has a history of kidney disease and CAD says she does not take NSAIDs. Allergies and Home Medications Allergies Coded Allergies: acetaminophen (Verified Allergy, Unknown, 03/06/19) amoxicillin (Verified Allergy, Unknown, 03/06/19) azithromycin (Verified Allergy, Unknown, 03/06/19) baclofen (Verified Allergy, Unknown, 03/06/19) clarithromycin (Verified Allergy, Unknown, 03/06/19) lisinopril (Verified Allergy, Unknown, 03/06/19) meperidine (Verified Allergy, Unknown, 03/06/19) propoxyphene (Verified Allergy, Unknown, 03/06/19) Home Medications Hydrocodone/Acetaminophen 1 Each Tablet, 1 EACH PO Q6H Prescribed by: CRUZ ISBELL on 08/09/19 0357 Patient Home Medication List Home Medication List Reviewed: Yes Review of Systems Review of Systems Constitutional: No chills, No diaphoresis EENTM: No Blurred Vision, No Double Vision Respiratory: See HPI; Denies Cough, Denies Shortness of Air; Other (pain on inspiration) Cardiovascular: See HPI, Chest Pain; Denies Lightheadedness Gastrointestinal: Denies Constipated, Denies Diarrhea, Denies Nausea Genitourinary: Denies Burning, Denies Discharge Musculoskeletal: No back pain, No joint pain All Other Systems Reviewed Negative Unless Noted: Yes Past Xfqufsa-Kytcfw-Uswuqm Hx Patient Social History Alcohol Use: Denies Use Recreational Drug Use: No Smoking Status: Never a Smoker 2nd Hand Smoke Exposure: No Recent Foreign Travel: No Contact w/Someone Who Travel: No Recent Hopitalizations: No Physical Abuse: No Sexual Abuse: No Mistreated: No Fear: No Seasonal Allergies Seasonal Allergies: No Past Medical History Surgeries: Yes CABG, Coronary Stent, Eye Surgery, Open Heart Surgery Respiratory: No Cardiac: Yes Coronary Artery Disease, High Cholesterol, Hypertension Neurological: No Genitourinary: Yes (Chronic kidney disease) Gastrointestinal: No Musculoskeletal: No Endocrine: Yes Diabetes, Non-Insulin dep HEENT: No Cancer: No Psychosocial: No Integumentary: No Physical Exam Vital Signs Vital Signs - First Documented 09/03/19 21:17 Temp 36.9 Pulse 94 Resp 17 B/P (MAP) 126/63 (84) O2 Delivery Room Air Capillary Refill : Height/Weight/BMI Height: '" Weight: lbs. oz. kg; 35.00 BMI Method: General Appearance: WD/WN, no apparent distress HEENT: PERRL/EOMI, pharynx normal Neck: non-tender, full range of motion, supple, normal inspection Respiratory: lungs clear, normal breath sounds, no respiratory distress, no accessory muscle use, other (midclavicular line anterior lower ribs are tender to palpation without any ecchymoses or abrasion.) Cardiovascular: normal peripheral pulses, regular rate, rhythm Peripheral Pulses: 2+ Radial Pulses (R), 2+ Radial Pulses (L) Gastrointestinal: normal bowel sounds, non tender, soft Back: normal inspection, no vertebral tenderness, CVA tenderness (R) Neurologic/Psychiatric: alert, normal mood/affect, oriented x 3 Skin: normal color, warm/dry Progress/Results/Core Measures Results/Orders Lab Results Laboratory Tests Test 09/03/19 21:25 Range/Units Urine Color YELLOW Urine Clarity SLIGHTLY CLOUDY Urine pH 7.0 5-9 Urine Specific [place] 1.010 L 1.016-1.022 Urine Protein NEGATIVE NEGATIVE Urine Glucose (UA) 3+ H NEGATIVE Urine Ketones NEGATIVE NEGATIVE Urine Nitrite POSITIVE H NEGATIVE Urine Bilirubin NEGATIVE NEGATIVE Urine Urobilinogen 0.2 < = 1.0 MG/DL Urine Leukocyte Esterase TRACE H NEGATIVE Urine RBC (Auto) NEGATIVE NEGATIVE Urine RBC NONE /HPF Urine WBC 10-25 H /HPF Urine Squamous Epithelial Cells 5-10 /HPF Urine Crystals NONE /LPF Urine Bacteria LARGE H /HPF Urine Casts NONE /LPF Urine Mucus NEGATIVE /LPF Urine Culture Indicated YES My Orders Orders - GENE BUENO Hydrocodone/Apap 5/325 Tablet (Lortab 5 (09/03/19 21:30) Ribs/Unilateral With Chest (09/03/19 21:23) Ua Culture If Indicated (09/03/19 21:23) Urine Culture (09/03/19 21:25) Ciprofloxacin Tablet (Cipro Tablet) (09/03/19 21:45) Medications Given in ED Current Medications Medications Dose Ordered Sig/Kristen Route Start Time Stop Time Status Last Admin Dose Admin Acetaminophen/ Hydrocodone Bitart 1 tab ONCE ONCE PO 09/03/19 21:30 09/03/19 21:31 DC 09/03/19 21:34 1 TAB Ciprofloxacin 500 mg ONCE ONCE PO 09/03/19 21:45 09/03/19 21:46 DC 09/03/19 21:51 500 MG Vital Signs/I&O 09/03/19 21:17 Temp 36.9 Pulse 94 Resp 17 B/P (MAP) 126/63 (84) O2 Delivery Room Air Progress Progress Note : Time: 21:30 Progress Note Suspect she has costochondritis related to her leaning over the wash machine. We'll get some rib x-rays give her some hydrocodone and check urinalysis since she's having some right costovertebral angle tenderness. Aseptic vital signs. Diagnostic Imaging Diagonstic Imaging: Xray Plain Films/CT/US/NM/MRI: chest (right ribs) Comments [facility], [place] NAME: [facility] REC#: [id number] PT STATUS: REG ER : 1945 PHYSICIAN: GENE BUENO MD ADMIT DATE: 09/03/19/ER FS Signed Date of Exam:09/03/19 RIBS/UNILATERAL WITH CHEST INDICATION: Rib pain. COMPARISON: None. EXAMINATION: Single view of the chest and multiple views of the right ribs were obtained. FINDINGS: Slight cardiac enlargement. Chronic interstitial changes are present. There is no acute infiltrate, effusion or pneumothorax. Visualized ribs are unremarkable. Sternal wires midline. IMPRESSION: 1. No acute cardiopulmonary findings. 2. Normal rib series. Dictated by: Dictated on workstation # [id number] Dict: 09/03/192145 Trans: 09/03/192151 [facility] [id number] Interpreted by: CHANDAN CASTRO Electronically signed by: CHANDAN CASTRO 09/03/192151 Reviewed: Reviewed by Me Departure Impression Primary Impression: Costochondritis, acute Additional Impression: UTI (urinary tract infection) Qualified Codes: N30.00 - Acute cystitis without hematuria Disposition: HOME, SELF-CARE Condition: Stable Departure-Patient Inst. Decision time for Depature: 22:20 Referrals: GENEVIEVE HUFF DO (PCP/Family) Primary Care Physician Patient Instructions: Urinary Tract Infections in Adults, Costochondritis (DC) Add. Discharge Instructions: I think you have a bruised rib and that's why you are experiencing the pain in her ribs. Tylenol 650 mg every 8 hours as necessary for pain. Heating pads and topical creams especially with capsaicin oil. Hydrocodone one tablet every 6 hours as necessary for breakthrough pain. Usually last about 1-2 weeks. Follow-up with your primary care doctor if you need further help managing. Ciprofloxacin one tablet twice a day for the next week for urinary tract infection. All discharge instructions reviewed with patient and/or family. Voiced understanding. Scripts Ciprofloxacin HCl (Ciprofloxacin HCl) 500 Mg Tablet 500 MG PO BID for 7 Days, #13 TAB 0 Refills Prov: GENE BUENO 09/03/19 Hydrocodone/Acetaminophen (Hydrocodone-Acetamin 5-325 mg) 1 Each Tablet 1 EACH PO Q6H PRN for PAIN-BREAKTHROUGH for 4 Days, #12 TAB 0 Refills Prov: GENE BUENO 09/03/19 GENE BUENO Sep 03, 2019 21:30
[2019-09-03 21:35] LABS: BILIRUBIN,URINE NEGATIVE (NEGATIVE); CLARITY,URINE SLIGHTLY CLOUDY; COLOR,URINE YELLOW; GLUCOSE, URINE (UA) 3+ (NEGATIVE); KETONES,URINE NEGATIVE (NEGATIVE); NITRITE,URINE POSITIVE (NEGATIVE); PROTEIN,URINE NEGATIVE (NEGATIVE)
[2019-09-03 21:36] LABS: BACTERIA,URINE LARGE /HPF; LEUKOCYTE ESTERASE ,URINE TRACE (NEGATIVE)
[2019-09-03] MEDS ORDERED: CIPROFLOXACIN 500 MG (CIPRO) TABLET PO ONE (21:45)
--- NOTE | 2019-09-03 21:50 | Diagnostic Imaging Report ---
INDICATION: Rib pain. COMPARISON: None. EXAMINATION: Single view of the chest and multiple views of the right ribs were obtained. FINDINGS: Slight cardiac enlargement. Chronic interstitial changes are present. There is no acute infiltrate, effusion or pneumothorax. Visualized ribs are unremarkable. Sternal wires midline. IMPRESSION: 1. No acute cardiopulmonary findings. 2. Normal rib series. Dictated by: Dictated on workstation # [id number]
--- OUTSIDE RECORDS SUMMARY | 2019-09-03 22:21 | XMS REPORT | Continuity of Care Document ---
Author Organization Unknown Address Unknown Phone Unavailable Allergies Active Description Code Type Severity Reaction Onset Reported/Identified Relationship to Patient Clinical Status Yes acetaminophen [id number] Torin g Allergy Unknown N/A 03/06/2019 Yes amoxicillin [id number] Drug Aller gy Unknown N/A 03/06/2019 Yes azithromycin [id number] Drug Allergy Unknown N/A 03/06/2019 Yes baclofen [id number] Drug Allergy Unknown N/A 03/06/[id number] ug Allergy Unknown N/A 03/06/2019 Yes lisinopril [id number] Drug Allerg y Unknown N/A 03/06/2019 Yes meperidine [id number] Drug Allerg y Unknown N/A 03/06/2019 Yes propoxyphene [id number] Drug Allergy Unknown N/A 03/06/2019 Medications There is no data. 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 9 HYPERTENSIVE CHRONIC KIDNEY DISEASE W ST 07/30/2019 GENE BUENO MD Ot N18. 9 CHRONIC KIDNEY DISEASE, UNSPECIFIED 07/30/2019 GENE BUENO MD Ot Z79. 02 HALFWAY (CURRENT) USE OF ANTITHROMBOTI 07/30/2019 GENE BUENO MD, Ot Z88. 1 ALLERGY STATUS TO OTHER ANTIBIOTIC AGENT 07/30/2019 GENE BUENO MD Ot Z88. 5 ALLERGY STATUS TO NARCOTIC AGENT STATUS 07/30/2019 GENE BUENO MD Ot Z88. 6 ALLERGY STATUS TO ANALGESIC AGENT STATUS 07/30/2019 GENE BUENO MD Ot Z88. 8 ALLERGY STATUS TO OTH DRUG/MEDS/BIOL SUB 07/30/2019 GENE BUENO MD Ot Z95. 1 PRESENCE OF AORTOCORONARY BYPASS GRAFT 07/30/2019 GENE BUENO MD Ot Z95. 5 PRESENCE OF CORONARY ANGIOPLASTY IMPLANT 07/31/2019 THERESE HENDRICKS DO Ot E11. 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 65 TYPE 2 DIABETES MELLITUS WITH HYPERGLYCE 07/31/2019 THERESE HENDRICKS DO Ot I12. 9 HYPERTENSIVE CHRONIC KIDNEY DISEASE W ST 07/31/2019 THERESE HENDRICKS DO Ot N18. 9 CHRONIC KIDNEY DISEASE, UNSPECIFIED 07/31/2019 THERESE HENDRICKS DO Ot R53. 1 WEAKNESS 07/31/2019 THERESE HENDRICKS DO Ot Z79. 4 HALFWAY (CURRENT) USE OF INSULIN 07/31/2019 THERESE HENDRICKS DO Ot Z88. 1 ALLERGY STATUS TO OTHER ANTIBIOTIC AGENT 07/31/2019 THERESE HENDRICKS DO Ot Z88. 5 ALLERGY STATUS TO NARCOTIC AGENT STATUS 07/31/2019 THERESE HENDRICKS DO Ot Z88. 8 ALLERGY STATUS TO OTH DRUG/MEDS/BIOL SUB 07/31/2019 THERESE HENDRICKS DO Ot Z95. 1 PRESENCE OF AORTOCORONARY BYPASS GRAFT 07/31/2019 THERESE HENDRICKS DO Ot Z95. 5 PRESENCE OF CORONARY ANGIOPLASTY IMPLANT 08/09/2019 CRUZ ISBELL DO Ot M79.605 PAIN IN LEFT LEG 08/09/2019 CRUZ ISBELL DO Ot S70.312A ABRASION, LEFT THIGH, INITIAL ENCOUNTER 08/09/2019 CRUZ ISBELL DO Ot W19.XXXA UNSPECIFIED FALL, INITIAL ENCOUNTER 08/09/2019 CRUZ ISBELL DO Ot Z79.02 HALFWAY (CURRENT) USE OF ANTITHROMBOTI 08/09/2019 CRUZ ISBELL DO Ot Z88.1 ALLERGY STATUS TO OTHER ANTIBIOTIC AGENT 08/09/2019 CRUZ ISBELL DO Ot Z88.5 ALLERGY STATUS TO NARCOTIC AGENT STATUS 08/09/2019 ISBELL DO, CRUZ Ot Z88.6 ALLERGY STATUS TO ANALGESIC AGENT STATUS 08/09/2019 ISBELL DO, CRUZ Ot Z88.8 ALLERGY STATUS TO OTH DRUG/MEDS/BIOL SUB 08/09/2019 ISBELL DO, CRUZ Ot Z95.1 PRESENCE OF AORTOCORONARY BYPASS GRAFT 08/09/2019 [place] DO, CRUZ Ot Z95.5 PRESENCE OF CORONARY ANGIOPLASTY IMPLANT 08/12/2019 ISBELL DO, CRUZ Ot M79.605 PAIN IN LEFT LEG 08/12/2019 ISBELL DO, CRUZ Ot S70.312A ABRASION, LEFT THIGH, INITIAL ENCOUNTER 08/12/2019 [place] DO, CRUZ Ot W19.XXXA UNSPECIFIED FALL, INITIAL ENCOUNTER 08/12/2019 [place] DO, CRUZ Ot Z79.02 HALFWAY (CURRENT) USE OF ANTITHROMBOTI 08/12/2019 [place] DO, CRUZ Ot Z88.1 ALLERGY STATUS TO OTHER ANTIBIOTIC AGENT 08/12/2019 [place] DO, CRUZ Ot Z88.5 ALLERGY STATUS TO NARCOTIC AGENT STATUS 08/12/2019 [place] DO, CRUZ Ot Z88.6 ALLERGY STATUS TO ANALGESIC AGENT STATUS 08/12/2019 [place] DO, CRUZ Ot Z88.8 ALLERGY STATUS TO OTH DRUG/MEDS/BIOL SUB 08/12/2019 [place] DO, CRUZ Ot Z95.1 PRESENCE OF AORTOCORONARY BYPASS GRAFT 08/12/2019 [place] DO, CRUZ Ot Z95.5 PRESENCE OF CORONARY ANGIOPLASTY IMPLANT 08/12/2019 [place] DO, CRUZ Ot M79.605 PAIN IN LEFT LEG 08/12/2019 [place] DO, CRUZ Ot S70.312A ABRASION, LEFT THIGH, INITIAL ENCOUNTER 08/12/2019 [place] DO, CRUZ Ot W19.XXXA UNSPECIFIED FALL, INITIAL ENCOUNTER 08/12/2019 [place] DO, CRUZ Ot 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 08/12/2019 [place] DO, CRUZ Ot Z88.1 ALLERGY STATUS TO OTHER ANTIBIOTIC AGENT 08/12/2019 [place] DO, CRUZ Ot Z88.5 ALLERGY STATUS TO NARCOTIC AGENT STATUS 08/12/2019 [place] DO, CRUZ Ot Z88.6 ALLERGY STATUS TO ANALGESIC AGENT STATUS 08/12/2019 [place] DO, CRUZ Ot Z88.8 ALLERGY STATUS TO OTH DRUG/MEDS/BIOL SUB 08/12/2019 [place] DO, CRUZ Ot Z95.1 PRESENCE OF AORTOCORONARY BYPASS GRAFT 08/12/2019 [place] DO, CRUZ Ot Z95.5 PRESENCE OF CORONARY ANGIOPLASTY IMPLANT [...] Automated blood platelet mean volume measurement 11.7 [[facility]] 7.4-10.4 Capillary blood glucose measurement by g [...] Automated erythrocyte mean corpuscular volume 84 [ [facility]] 80-99 Automated erythrocyte mean corpuscular h emoglobin (mass per erythrocyte) 28 pg 25-34 Automated erythrocyte mean corpuscular h emoglobin concentration measurement (mass/volume) 33 g/dL 32-36 Automated erythrocyte distribution width ratio 14. 3 % 10.0- 14.5 Automated blood platelet count (count/volume) 116 10*3/uL 130-400 Automated blood platelet mean volume measurement 12.1 [[facility]] 7.4-10.4 Automated blood neutrophils/100 leukocytes 57 % [...] by glucometer (mas s/volume) 401 mg/dL 70-110 Complete urinalysis with reflex to cultu re - 09/03/19 21:25 Urine color determination YELLOW NRG Urine clarity determination SLIGHTLY CLOUDY NRG Urine pH measurement by test strip 7.0 5-9 Specific gravity of urine by test strip 1.010 1.016-1.022 Urine protein assay by test strip, semi-quantitative NEGATIVE NEGATIVE Urine glucose detection by automated test strip 3+ NEGATIVE Erythrocytes detection in urine sediment by light micr oscopy NEGATIVE NEGATIVE Urine ketones detection by automated test strip NE GATIVE NEGATIVE Urine nitrite detection by test strip POSITIVE NEGATIVE Urine total bilirubin detection by test strip NEGA TIVE NEGATIVE Urine urobilinogen measurement by automated test strip (mass/volume) 0.2 mg/dL < = 1.0 Urine leukocyte esterase detection by dipstick TRA CE NEGATIVE Automated urine sediment erythrocyte cou nt by microscopy (number/high power field) NONE NRG Automated urine sediment leukocyte count by microscopy (number/high power field) [HPF] NRG Bacteria detection in urine sediment by light microsco py LARGE NRG Squamous epithelial cells detection in u rine sediment by light microscopy 5-10 NRG Crystals detection in urine sediment by light microsco py NONE NRG Casts detection in urine sediment by light microscopy NONE NRG Mucus detection in urine sediment by light microscopy NEGATIVE NRG Complete urinalysis with reflex to culture YES NRG Encounters ACCT No. Visit Date/Time Discharge Status Pt. Type Provider Facility Loc./Unit Complaint [id number] 08/09/2019 02:13:00 04:02:00 DIS Emergency CRUZ ISBELL DO [facility] ER FS LEFT LEG PAIN [id number] 07/31/2019 00:41:00 02:50:00 DIS Emergency THERESE HENDRICKS DO [facility] ER FS GENERAL WEAKNESS [id number] 07/28/2019 21:54:00 22:39:00 DIS Outpatient XIMENA YANEZ, GENE Saenz [facility] ER FS EYE BLEEDING [id number] 03/06/2019 16:40:00 18:05:00 DIS Emergency DANITZA JARVIS MD [facility] ER FS LEG PAIN [id number] 09/03/2019 21:36:00 Document Registration
[2019-09-03] MEDS ORDERED: CIPR500T4 PO (22:24)
[2019-09-03] MEDS ORDERED: HYDR-83 PO (22:24)
[2019-09-03 22:41] VITALS: BP 138/82
== END 2019-09-03 22:41 | disposition home or self-care (01) ==
LOC: EDUNIT# 21:04 → ER FS 21:05
DX: M94.0 Chondrocostal junction syndrome [Tietze] (principal); N39.0 Urinary tract infection, site not specified; E11.22 Type 2 diabetes mellitus with diabetic chronic kidney disease; I12.9 Hypertensive chronic kidney disease with stage 1 through stage 4 chronic kidney disease, or unspecified chronic kidney disease; N18.9 Chronic kidney disease, unspecified; Z88.6 Allergy status to analgesic agent; Z88.0 Allergy status to penicillin; Z88.1 Allergy status to other antibiotic agents; Z88.5 Allergy status to narcotic agent; Z88.8 Allergy status to other drugs, medicaments and biological substances; Z95.5 Presence of coronary angioplasty implant and graft; Z95.1 Presence of aortocoronary bypass graft
CPT/HCPCS: 71101; 81000; 87077; 87088; 87186

== ENCOUNTER 2019-09-09 22:34 | Emergency (ER) | payer MEDICARE, OTHER ==
[~2019-09-09] VITALS: Ht 156 cm; Wt 93.6 kg
[~2019-09-09 22:34] MED LIST changes: +CIPR500T4 PO
--- NOTE | 2019-09-10 00:50 | ED General ---
General Chief Complaint: Trauma-Non Activation Stated Complaint: FELL,BACK/SHOULDER BLADE PAIN Nursing Triage Note: pt states she slipped twice in the shower today and fell injuring left shoulder blade and mid back. pt states pain increases with deep breathing Nursing Sepsis Screen: No Definite Risk Source of Information: Patient Exam Limitations: No Limitations History of Present Illness Date Seen by Provider: Sep 10, 2019 Time Seen by Provider: 00:00 Initial Comments Patient is a 74-year-old female presents with upper thoracic back pain below left shoulder and mid back pain radiating to anterior chest after slipping and falling bathtub earlier today. Patient fell several hours prior to the arrival and took hydrocodone earlier in the evening without relief of symptoms. No midline neck or back pain. No loss of consciousness. No shortness of breath. No upper abdominal pain. No other injury complaints. Patient also reports nasal congestion cough and rhinorrhea hyperventilating back pain. Timing/Duration: 1-3 Hours Severity: Moderate Modifying Factors: improves with Movement Associated Systoms: Cough Allergies and Home Medications Allergies Coded Allergies: acetaminophen (Verified Allergy, Unknown, 03/06/19) amoxicillin (Verified Allergy, Unknown, 03/06/19) azithromycin (Verified Allergy, Unknown, 03/06/19) baclofen (Verified Allergy, Unknown, 03/06/19) clarithromycin (Verified Allergy, Unknown, 03/06/19) lisinopril (Verified Allergy, Unknown, 03/06/19) meperidine (Verified Allergy, Unknown, 03/06/19) propoxyphene (Verified Allergy, Unknown, 03/06/19) Home Medications Ciprofloxacin HCl 500 Mg Tablet, 500 MG PO BID Prescribed by: GENE BUENO on 09/03/192223 Hydrocodone/Acetaminophen 1 Each Tablet, 1 EACH PO Q6H Prescribed by: CRUZ ISBELL on 08/09/19 0357 Hydrocodone/Acetaminophen 1 Each Tablet, 1 EACH PO Q6H PRN for PAIN-BREAKTHROUGH Prescribed by: GENE BUENO on 09/03/192223 Patient Home Medication List Home Medication List Reviewed: Yes Review of Systems Review of Systems Constitutional: see HPI EENTM: see HPI Respiratory: see HPI Cardiovascular: see HPI Gastrointestinal: see HPI Genitourinary: see HPI : No Musculoskeletal: see HPI Skin: see HPI Psychiatric/Neurological: See HPI Hematologic/Lymphatic: See HPI Immunological/Allergic: see HPI Past Khovajk-Rlmtnr-Yijzmr Hx Past Med/Social Hx: Reviewed Nursing Past Med/Soc Hx Patient Social History Alcohol Use: Denies Use Recreational Drug Use: No 2nd Hand Smoke Exposure: No Recent Foreign Travel: No Contact w/Someone Who Travel: No Recent Infectious Disease Expo: No Recent Hopitalizations: No Physical Abuse: No Sexual Abuse: No Mistreated: No Fear: No Seasonal Allergies Seasonal Allergies: No Past Medical History Surgeries: Yes CABG, Coronary Stent, Eye Surgery, Open Heart Surgery Respiratory: No Cardiac: Yes Coronary Artery Disease, High Cholesterol, Hypertension Neurological: No Genitourinary: Yes (Chronic kidney disease) Gastrointestinal: No Musculoskeletal: No Endocrine: Yes Diabetes, Non-Insulin dep HEENT: No Cancer: No Psychosocial: No Integumentary: No Blood Disorders: No Physical Exam Vital Signs Vital Signs - First Documented 09/09/19 22:54 Temp 37.1 Pulse 98 Resp 18 B/P (MAP) 159/69 (99) Pulse Ox 99 O2 Delivery Room Air Capillary Refill : Less Than 3 Seconds Height, Weight, BMI Height: '" Weight: lbs. oz. kg; 38.00 BMI Method: General Appearance: Anxious, Mild Distress Eyes: Bilateral Eye Normal Inspection, Bilateral Eye PERRL, Bilateral Eye EOMI HEENT: PERRL/EOMI, TMs Normal, Pharynx Normal Neck: Normal Inspection, Non Tender, Supple Respiratory: Lungs Clear, Normal Breath Sounds Cardiovascular: Regular Rate, Rhythm Back: No Vertebral Tenderness; No CVA Tenderness (L), No CVA Tenderness (R); Decreased Range of Motion, Muscle Spasm (pain/tenderness superior to left shoulder blade. No abrasions, contusionsn or crepitance.) Extremity: Normal Capillary Refill, Normal Inspection Neurologic/Psychiatric: Alert, Oriented x3, No Motor/Sensory Deficits Skin: Normal Color Focused Exam Sepsis Stage: Ruled Out Progress/Results/Core Measures Suspected Sepsis Recent Fever Within 48 Hours: No Infection Criteria Present: None New/Unexplained Altered Menta: No Sepsis Screen: No Definite Risk SIRS Temperature: Pulse: 98 Respiratory Rate: 18 Blood Pressure 159 /69 Mean: 99 Results/Orders My Orders Orders - CRUZ ISBELL DO Ua Culture If Indicated (09/09/19 23:34) Chest Pa/Lat (2 View) (09/10/19 00:42) Vital Signs/I&O 09/09/19 22:54 Temp 37.1 Pulse 98 Resp 18 B/P (MAP) 159/69 (99) Pulse Ox 99 O2 Delivery Room Air Capillary Refill : Less Than 3 Seconds Blood Pressure Mean: 99 Departure Communication (Admissions) CXR: NAD Reproducible back pain without evidence of acute injury or pneumothorax on imaging studies. Mild URI symptoms. Recommend supportive care with PCP follow up. Impression Primary Impression: Chest wall injury Additional Impression: Upper respiratory infection Disposition: HOME, SELF-CARE Condition: Stable Departure-Patient Inst. Referrals: GENEVIEVE HUFF DO (PCP) Primary Care Physician Patient Instructions: Viral Upper Respiratory Infection, Adult (DC), Concussion, Children and Adolescents (DC), Blunt Chest Trauma Add. Discharge Instructions: Take ibuprofen and hydrocodone for back pain and Claritin [id number] her Benadryl for nasal congestion. Avoid strenuous physical activity and heavy lifti ng. Follow-up with your PCP for reevaluation next 2-3 days. All discharge instructions reviewed with patient and/or family. Voiced understanding. CRUZ ISBELL DO Sep 10, 2019 00:50
[2019-09-10 01:07] LABS: BACTERIA,URINE TRACE /HPF; BILIRUBIN,URINE NEGATIVE (NEGATIVE); CLARITY,URINE SLT CLOUDY; COLOR,URINE YELLOW; GLUCOSE, URINE (UA) 1+ (NEGATIVE); KETONES,URINE NEGATIVE (NEGATIVE); LEUKOCYTE ESTERASE ,URINE 3+ (NEGATIVE); NITRITE,URINE NEGATIVE (NEGATIVE); PROTEIN,URINE NEGATIVE (NEGATIVE); RBC,URINE 0-2 /HPF; SQUAMOUS EPITHELIAL CELL,UR 0-2 /HPF; WBC,URINE 25-50 /HPF
[2019-09-10 01:14] VITALS: BP 137/68
--- OUTSIDE RECORDS SUMMARY | 2019-09-10 02:07 | XMS REPORT | Continuity of Care Document ---
Author Organization Unknown Address Unknown Phone Unavailable Allergies Active Description Code Type Severity Reaction Onset Reported/Identified Relationship to Patient Clinical Status Yes acetaminophen [id number] Torin g Allergy Unknown N/A 03/06/2019 Yes amoxicillin [id number] Drug Aller gy Unknown N/A 03/06/2019 Yes azithromycin [id number] Drug Allergy Unknown N/A 03/06/2019 Yes baclofen [id number] Drug Allergy Unknown N/A 03/06/[id number] ug Allergy Unknown N/A 03/06/2019 Yes lisinopril [id number] Drug Allerg y Unknown N/A 03/06/2019 Yes meperidine [id number] Drug Allerg y Unknown N/A 03/06/2019 Yes propoxyphene [id number] Drug Allergy Unknown N/A 03/06/2019 Medications There is no data. 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 9 HYPERTENSIVE CHRONIC KIDNEY DISEASE W ST 07/30/2019 GENE BUENO MD Ot N18. 9 CHRONIC KIDNEY DISEASE, UNSPECIFIED 07/30/2019 GENE BUENO MD Ot Z79. 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 65 TYPE 2 DIABETES MELLITUS WITH HYPERGLYCE 07/31/2019 THERESE HENDRICKS DO Ot I12. 9 HYPERTENSIVE CHRONIC KIDNEY DISEASE W ST 07/31/2019 THERESE HENDRICKS DO Ot N18. 9 CHRONIC KIDNEY DISEASE, UNSPECIFIED 07/31/2019 THERESE HENDRICKS DO Ot R53. 1 WEAKNESS 07/31/2019 THERESE HENDRICKS DO Ot Z79. 4 SKILLED NURSING (CURRENT) USE OF INSULIN 07/31/2019 THERESE HENDRICKS [...] ENCOUNTER 08/09/2019 CRUZ ISBELL DO Ot Z79.02 SKILLED NURSING (CURRENT) USE OF ANTITHROMBOTI 08/09/2019 CRUZ ISBELL [...] Z95.1 PRESENCE OF AORTOCORONARY BYPASS GRAFT 08/09/2019 [place] DO, CRUZ Ot Z95.5 PRESENCE OF CORONARY ANGIOPLASTY IMPLANT 08/12/2019 ISBELL DO, CRUZ Ot M79.605 PAIN IN LEFT LEG 08/12/2019 ISBELL DO, CRUZ Ot S70.312A ABRASION, LEFT THIGH, INITIAL ENCOUNTER 08/12/2019 [place] DO, CRUZ Ot W19.XXXA UNSPECIFIED FALL, INITIAL ENCOUNTER 08/12/2019 [place] DO, CRUZ Ot Z79.02 SKILLED NURSING (CURRENT) USE OF ANTITHROMBOTI 08/12/2019 [place] DO, CRUZ Ot Z88.1 ALLERGY STATUS TO OTHER ANTIBIOTIC AGENT 08/12/2019 [place] DO, CRUZ Ot Z88.5 ALLERGY STATUS TO NARCOTIC AGENT STATUS 08/12/2019 [place] DO, CRUZ Ot Z88.6 ALLERGY STATUS TO ANALGESIC AGENT STATUS 08/12/2019 [place] DO, CRUZ Ot Z88.8 ALLERGY STATUS TO OTH DRUG/MEDS/BIOL SUB 08/12/2019 [place] DO, CRUZ Ot Z95.1 PRESENCE OF AORTOCORONARY BYPASS GRAFT 08/12/2019 [place] DO, CRUZ Ot Z95.5 PRESENCE OF CORONARY ANGIOPLASTY IMPLANT 08/12/2019 [place] DO, CRUZ Ot M79.605 PAIN IN LEFT LEG 08/12/2019 [place] DO, CURZ Ot S70.312A ABRASION, LEFT THIGH, INITIAL ENCOUNTER 08/12/2019 [place] DO, CRUZ Ot W19.XXXA UNSPECIFIED FALL, INITIAL ENCOUNTER 08/12/2019 [place] DO, CRUZ Ot 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 9 HYPERTENSIVE CHRONIC KIDNEY DISEASE W ST 09/07/2019 GENE BUENO MD Ot M94. 0 CHONDROCOSTAL JUNCTION SYNDROME [TIETZE] 09/07/2019 GENE BUENO MD Ot N18. 9 CHRONIC KIDNEY DISEASE, UNSPECIFIED 09/07/2019 GENE BUENO MD Ot N39. 0 URINARY TRACT INFECTION, SITE NOT SPECIF 09/07/2019 GENE BUENO MD Ot R07. 81 PLEURODYNIA 09/07/2019 GENE BUENO MD Ot Z88. 0 ALLERGY STATUS TO PENICILLIN 09/07/2019 GENE BUENO MD Ot Z88. 1 ALLERGY STATUS TO OTHER ANTIBIOTIC AGENT 09/07/2019 GENE BUENO MD Ot Z88. 5 ALLERGY STATUS TO NARCOTIC AGENT STATUS 09/07/2019 GENE BUENO MD Ot Z88. 6 ALLERGY STATUS TO ANALGESIC AGENT STATUS 09/07/2019 GENE BUENO MD Ot Z88. 8 ALLERGY STATUS TO OTH DRUG/MEDS/BIOL SUB 09/07/2019 GENE BUENO MD Ot Z95. 1 PRESENCE OF AORTOCORONARY BYPASS GRAFT 09/07/2019 GENE BUENO MD Ot Z95. 5 PRESENCE OF CORONARY ANGIOPLASTY IMPLANT 09/09/2019 GENE BUENO MD Ot E11. 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 9 HYPERTENSIVE CHRONIC KIDNEY DISEASE W ST 09/09/2019 GENE BUENO MD Ot M94. 0 CHONDROCOSTAL JUNCTION SYNDROME [TIETZE] 09/09/2019 GENE BUENO MD Ot N18. 9 CHRONIC KIDNEY DISEASE, UNSPECIFIED 09/09/2019 GENE BUENO MD Ot N39. 0 URINARY TRACT INFECTION, SITE NOT SPECIF 09/09/2019 GENE BUENO MD Ot R07. 81 PLEURODYNIA 09/09/2019 GENE BUENO MD Ot Z88. 0 ALLERGY STATUS TO PENICILLIN 09/09/2019 GENE BUENO MD Ot Z88. 1 ALLERGY STATUS TO OTHER ANTIBIOTIC AGENT 09/09/2019 GENE BUENO MD, Ot Z88. 5 ALLERGY STATUS TO NARCOTIC AGENT STATUS 09/09/2019 GENE BUENO MD, Ot Z88. 6 ALLERGY STATUS TO ANALGESIC AGENT STATUS 09/09/2019 GENE BUENO MD, Ot Z88. 8 ALLERGY STATUS TO OTH DRUG/MEDS/BIOL SUB 09/09/2019 GENE BUENO MD, Ot Z95. 1 PRESENCE OF AORTOCORONARY BYPASS GRAFT 09/09/2019 GENE BUENO MD, Ot Z95. 5 PRESENCE [...] urinalysis with reflex to culture YES NRG Bacterial urine culture - 09/03/19 21:25 Bacterial urine culture [id number] NRG COLONY COUNT >100,000/ML NRG SUSCEPTIBILITY SUSCEPTIBILITY REPORTED 09-06-19, 17 15. NRG Dirithromycin susceptibility test by dis k diffusion - 09/03/19 21:25 Oxacillin susceptibility test by minimum inhibitory co ncentration <= NRG Vancomycin susceptibility test by minimum inhibitory c oncentration 1 NRG Levofloxacin susceptibility test by minimum inhibitory concentration <= NRG Rifampin susceptibility test by minimum inhibitory con centration <= NRG Cefazolin susceptibility test by minimum inhibitory co ncentration <= NRG Nitrofurantoin susceptibility test by mi nimum inhibitory concentration <= NRG Complete urinalysis with reflex to cultu re - 09/09/19 00:55 Urine color determination YELLOW NRG Urine clarity determination SLT CLOUDY NRG Urine pH measurement by test strip 6.0 5-9 Specific gravity of urine by test strip 1.010 1.016-1.022 Urine protein assay by test strip, semi-quantitative NEGATIVE NEGATIVE Urine glucose detection by automated test strip 1+ NEGATIVE Erythrocytes detection in urine sediment by light micr oscopy TRACE NEGATIVE Urine ketones detection by automated test strip NE GATIVE NEGATIVE Urine nitrite detection by test strip NEGATIVE NEGATIVE Urine total bilirubin detection by test strip NEGA TIVE NEGATIVE Urine urobilinogen measurement by automated test strip (mass/volume) 0.2 mg/dL < = 1.0 Urine leukocyte esterase detection by dipstick 3+ NEGATIVE Automated urine sediment erythrocyte cou nt by microscopy (number/high power field) [HPF] NRG Automated urine sediment leukocyte count by microscopy (number/high power field) [HPF] NRG Bacteria detection in urine sediment by light microsco py TRACE NRG Squamous epithelial cells detection in u rine sediment by light microscopy 0-2 NRG Crystals detection in urine sediment by light microsco py NONE NRG Casts detection in urine sediment by light microscopy NONE NRG Mucus detection in urine sediment by light microscopy NEGATIVE NRG Complete urinalysis with reflex to culture YES NRG Encounters ACCT No. Visit Date/Time Discharge Status Pt. Type Provider Facility Loc./Unit Complaint [id number] 09/03/2019 21:05:00 22:41:00 DIS Outpatient GENE BUENO MD [facility] ER FS ABD,RIB PAIN [id number] 08/09/2019 02:13:00 020 04:02:00 DIS Emergency CRUZ ISBELL DO [facility] ER FS LEFT LEG PAIN [id number] 07/31/2019 00:41:00 02:50:00 DIS Emergency THERESE HENDRICKS DO [facility] ER FS GENERAL WEAKNESS [id number] 07/28/2019 21:54:00 22:39:00 DIS Outpatient XIMENA YANEZ, GENE Saenz [facility] ER FS EYE BLEEDING [id number] 03/06/2019 16:40:00 18:05:00 DIS Emergency SIMONA YANEZ, DANITZA Hyde [facility] ER FS LEG PAIN [id number] 09/10/2019 01:08:00 Document Registration
--- NOTE | 2019-09-10 08:16 | Diagnostic Imaging Report ---
INDICATION: Fall. Pain. COMPARISON: 09/03/2019 FINDINGS: Frontal and lateral views of the chest demonstrate normal heart size and pulmonary vascularity. The lungs are clear. There are no signs of infiltrate, pleural effusions or pneumothoraces. The visualized osseous structures show no acute abnormalities. Sternotomy wires and calcified aortic atherosclerosis are noted. IMPRESSION: 1. No acute process. No signs of infiltrates, effusions or pneumothoraces. Dictated by: Dictated on workstation # [id number]
== END 2019-09-10 01:14 | disposition home or self-care (01) ==
LOC: EDUNIT# 22:34 → ER FS 22:36
DX: S29.9XXA Unspecified injury of thorax, initial encounter (principal); J06.9 Acute upper respiratory infection, unspecified; E11.22 Type 2 diabetes mellitus with diabetic chronic kidney disease; I12.9 Hypertensive chronic kidney disease with stage 1 through stage 4 chronic kidney disease, or unspecified chronic kidney disease; N18.9 Chronic kidney disease, unspecified; Z88.6 Allergy status to analgesic agent; Z88.0 Allergy status to penicillin; Z88.8 Allergy status to other drugs, medicaments and biological substances; Z88.1 Allergy status to other antibiotic agents; Z95.5 Presence of coronary angioplasty implant and graft; Z95.1 Presence of aortocoronary bypass graft; W18.2XXA Fall in (into) shower or empty bathtub, initial encounter
CPT/HCPCS: 71046; 81000; 87088

== ENCOUNTER 2019-09-16 22:02 | Emergency (ER) | payer MEDICARE, OTHER ==
[~2019-09-16] VITALS: Ht 157.5 cm; Wt 95.5 kg
--- OUTSIDE RECORDS SUMMARY | 2019-09-16 22:07 | XMS REPORT | Continuity of Care Document ---
Author Organization Unknown Address Unknown Phone Unavailable Allergies Active Description Code Type Severity Reaction Onset Reported/Identified Relationship to Patient Clinical Status Yes acetaminophen [id number] Torin g Allergy Unknown N/A 03/06/2019 Yes amoxicillin [id number] Drug Aller gy Unknown N/A 03/06/2019 Yes azithromycin [id number] Drug Allergy Unknown N/A 03/06/2019 Yes baclofen [id number] Drug Allergy Unknown N/A 03/06/[id number] ug Allergy Unknown N/A 03/06/2019 Yes lisinopril [id number] Drug Allerg y Unknown N/A 03/06/2019 Yes meperidine [id number] Drug Allerg y Unknown N/A 03/06/2019 Yes propoxyphene [id number] Drug Allergy Unknown N/A 03/06/2019 Medications There is no data. 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 9 HYPERTENSIVE CHRONIC KIDNEY DISEASE W ST 07/30/2019 GENE BUENO MD Ot N18. 9 CHRONIC KIDNEY DISEASE, UNSPECIFIED 07/30/2019 GENE BUENO MD Ot Z79. 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 65 TYPE 2 DIABETES MELLITUS WITH HYPERGLYCE 07/31/2019 THERESE HENDRICKS DO Ot I12. 9 HYPERTENSIVE CHRONIC KIDNEY DISEASE W ST 07/31/2019 THERESE HENDRICKS DO Ot N18. 9 CHRONIC KIDNEY DISEASE, UNSPECIFIED 07/31/2019 THERESE HENDRICKS DO Ot R53. 1 WEAKNESS 07/31/2019 THERESE HENDRICKS DO Ot Z79. 4 CARE HOME (CURRENT) USE OF INSULIN 07/31/2019 THERESE HENDRICKS [...] ENCOUNTER 08/09/2019 CRUZ ISBELL DO Ot Z79.02 CARE HOME (CURRENT) USE OF ANTITHROMBOTI 08/09/2019 CRUZ ISBELL [...] Z95.1 PRESENCE OF AORTOCORONARY BYPASS GRAFT 08/09/2019 [place] DO, CRUZ Ot Z95.5 PRESENCE OF CORONARY ANGIOPLASTY IMPLANT 08/12/2019 ISBELL DO, CRUZ Ot M79.605 PAIN IN LEFT LEG 08/12/2019 ISBELL DO, CRUZ Ot S70.312A ABRASION, LEFT THIGH, INITIAL ENCOUNTER 08/12/2019 [place] DO, CRUZ Ot W19.XXXA UNSPECIFIED FALL, INITIAL ENCOUNTER 08/12/2019 [place] DO, CRUZ Ot Z79.02 CARE HOME (CURRENT) USE OF ANTITHROMBOTI 08/12/2019 [place] DO, CRUZ Ot Z88.1 ALLERGY STATUS TO OTHER ANTIBIOTIC AGENT 08/12/2019 [place] DO, CRUZ Ot Z88.5 ALLERGY STATUS TO NARCOTIC AGENT STATUS 08/12/2019 [place] DO, CRUZ Ot Z88.6 ALLERGY STATUS TO ANALGESIC AGENT STATUS 08/12/2019 [place] DO, CRUZ Ot Z88.8 ALLERGY STATUS TO OTH DRUG/MEDS/BIOL SUB 08/12/2019 [place] DO, CRUZ Ot Z95.1 PRESENCE OF AORTOCORONARY BYPASS GRAFT 08/12/2019 [place] DO, CRUZ Ot Z95.5 PRESENCE OF CORONARY ANGIOPLASTY IMPLANT 08/12/2019 [place] DO, CRUZ Ot M79.605 PAIN IN LEFT LEG 08/12/2019 [place] DO, CRUZ Ot S70.312A ABRASION, LEFT THIGH, INITIAL ENCOUNTER 08/12/2019 [place] DO, CRUZ Ot W19.XXXA UNSPECIFIED FALL, INITIAL ENCOUNTER 08/12/2019 [place] DO, CRUZ Ot 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 9 [...] ALLERGY STATUS TO OTHER ANTIBIOTIC AGENT 09/09/2019 XIMENA YANEZ, GENE Saenz Ot Z88. 5 ALLERGY STATUS TO NARCOTIC AGENT STATUS 09/09/2019 XIMENA YANEZ, GENE Saenz Ot Z88. 6 ALLERGY STATUS TO ANALGESIC AGENT STATUS 09/09/2019 XIMENA YANEZ, GENE Saenz Ot Z88. 8 ALLERGY STATUS TO OTH DRUG/MEDS/BIOL SUB 09/09/2019 GENE BUENO MD Ot Z95. 1 PRESENCE OF AORTOCORONARY BYPASS GRAFT 09/09/2019 XIMENA YANEZ, GENE Saenz Ot Z95. 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 09/14/2019 [place] DO, CRUZ Ot I12.9 HYPERTENSIVE CHRONIC KIDNEY DISEASE W ST 09/14/2019 [place] DO, CRUZ Ot J06.9 ACUTE UPPER RESPIRATORY INFECTION, UNSPE 09/14/2019 [place] DO, CRUZ Ot N18.9 CHRONIC KIDNEY DISEASE, UNSPECIFIED 09/14/2019 [place] DO, CRUZ Ot R07.89 OTHER CHEST PAIN 09/14/2019 [place] DO, CRUZ Ot S29.9XXA UNSPECIFIED INJURY OF THORAX, INITIAL EN 09/14/2019 [place] DO, CRUZ Ot W18.2XXA FALL IN (INTO) SHOWER OR EMPTY BATHTUB, 09/14/2019 [place] DO, CRUZ Ot Z88.0 ALLERGY STATUS TO PENICILLIN 09/14/2019 [place] DO, CRUZ Ot Z88.1 ALLERGY STATUS TO OTHER ANTIBIOTIC AGENT 09/14/2019 [place] DO, CRUZ Ot Z88.6 ALLERGY STATUS TO ANALGESIC AGENT STATUS 09/14/2019 [place] DO, CRUZ Ot Z88.8 ALLERGY STATUS TO OTH DRUG/MEDS/BIOL SUB 09/14/2019 [place] DO, CRUZ Ot Z95.1 PRESENCE OF AORTOCORONARY BYPASS GRAFT 09/14/2019 [place] DO, CRUZ Ot Z95.5 PRESENCE OF CORONARY [...] culture - 09/03/19 21:25 Bacterial urine culture [id number] NRG COLONY COUNT >100,000/ML NRG SUSCEPTIBILITY SUSCEPTIBILITY [...] culture YES NRG Bacterial urine culture - 09/09/19 00:55 Bacterial urine culture 3 OR MORE NRG COLONY COUNT 80,000 CFU/ML NRG SUSCEPTIBILITY (GRAM POSITIVE) SUGGESTING PROBABLE NRG MRSA SCREEN COLLECTION CONTAMINATION WITH SKIN SUE RA NRG RAPID ID NO SUSCEPTIIBLITY PERFORMED N RG Encounters ACCT No. Visit Date/Time Discharge Status Pt. Type Provider Facility Loc./Unit Complaint [id number] 09/09/2019 22:36:00 01:14:00 DIS Outpatient CRUZ ISBELL DO [facility] ER FS FELL,BACK/SHOULDER BLAD E PAIN [id number] 09/03/2019 21:05:00 22:41:00 DIS Outpatient GENE BUENO MD [facility] ER FS ABD,RIB PAIN [id number] 08/09/2019 02:13:00 04:02:00 DIS Emergency CRUZ ISBELL DO [facility] ER FS LEFT LEG PAIN [id number] 07/31/2019 00:41:00 02:50:00 DIS Emergency THERESE HENDRICKS DO [facility] ER FS GENERAL WEAKNESS [id number] 07/28/2019 21:54:00 22:39:00 DIS Outpatient GENE BUENO MD [facility] ER FS EYE BLEEDING [id number] 03/06/2019 16:40:00 18:05:00 DIS Emergency DANITZA JARVIS MD [facility] ER FS LEG PAIN [id number] 09/16/2019 22:03:[address] Emergency THERESE HENDRICKS DO [facility] ER FS SHAKEY,BACK PAIN,DISORIENTED ,LEG WEAKNESS,SOA
--- NOTE | 2019-09-16 22:20 | ED General ---
General Chief Complaint: General Problems/Pain Stated Complaint: SHAKEY,BACK PAIN,DISORIENTED,LEG WEAKNESS,SOA Source of Information: Patient Exam Limitations: No Limitations History of Present Illness Date Seen by Provider: Sep 16, 2019 Time Seen by Provider: 22:10 Initial Comments The patient is a 74-year-old female presents for evaluation of shortness of breath, left rib and back discomfort, and shakiness which she states is been bothering her for about 4 hours. She's been seen in this emergency department multiple times recently for falls. She denies fevers or chills, new cough (st villalta has chronic cough at baseline), chest pain, abdominal pain, nausea or vomiting, palpitations, or syncope. She is alert and oriented 4, calm, and appears to be in no distress at this time. Timing/Duration: 4-6 Hours Severity: Mild Associated Systoms: Cough (states chronic and at baseline), Shortness of Air (over the last 4 hours), Other (states shakiness) Allergies and Home Medications Allergies Coded Allergies: acetaminophen (Verified Allergy, Unknown, 03/06/19) amoxicillin (Verified Allergy, Unknown, 03/06/19) azithromycin (Verified Allergy, Unknown, 03/06/19) baclofen (Verified Allergy, Unknown, 03/06/19) clarithromycin (Verified Allergy, Unknown, 03/06/19) lisinopril (Verified Allergy, Unknown, 03/06/19) meperidine (Verified Allergy, Unknown, 03/06/19) propoxyphene (Verified Allergy, Unknown, 03/06/19) Home Medications Ciprofloxacin HCl 500 Mg Tablet, 500 MG PO BID Prescribed by: GENE BUENO on 09/03/192223 Hydrocodone/Acetaminophen 1 Each Tablet, 1 EACH PO Q6H Prescribed by: CRUZ ISBELL on 08/09/19 0357 Hydrocodone/Acetaminophen 1 Each Tablet, 1 EACH PO Q6H PRN for PAIN-BREAKTHROUGH Prescribed by: GENE BUENO on 09/03/192223 Patient Home Medication List Home Medication List Reviewed: Yes Review of Systems Review of Systems Constitutional: no symptoms reported EENTM: no symptoms reported Respiratory: cough (chronic), short of breath Cardiovascular: no symptoms reported Gastrointestinal: no symptoms reported Genitourinary: no symptoms reported Musculoskeletal: no symptoms reported Skin: no symptoms reported Psychiatric/Neurological: No Symptoms Reported Hematologic/Lymphatic: No Symptoms Reported Immunological/Allergic: no symptoms reported All Other Systems Reviewed Negative Unless Noted: Yes Past Iqunxir-Vzakcl-Jpvygw Hx Past Med/Social Hx: Reviewed Nursing Past Med/Soc Hx Patient Social History Alcohol Use: Denies Use Recreational Drug Use: No Smoking Status: Former Smoker Type Used: Cigarettes 2nd Hand Smoke Exposure: No Recent Foreign Travel: No Contact w/Someone Who Travel: No Recent Hopitalizations: No Physical Abuse: No Sexual Abuse: No Mistreated: No Fear: No Seasonal Allergies Seasonal Allergies: No Past Medical History Surgeries: Yes CABG, Coronary Stent, Eye Surgery, Open Heart Surgery Respiratory: No Cardiac: Yes Coronary Artery Disease, High Cholesterol, Hypertension Neurological: No Genitourinary: Yes (Chronic kidney disease) Gastrointestinal: No Musculoskeletal: No Endocrine: Yes Diabetes, Non-Insulin dep HEENT: No Cancer: No Psychosocial: No Integumentary: No Blood Disorders: No Physical Exam Vital Signs Vital Signs - First Documented 09/16/19 22:13 Temp 37.5 Pulse 112 Resp 18 B/P (MAP) 141/55 (83) O2 Delivery Room Air Capillary Refill : Height, Weight, BMI Height: '" Weight: lbs. oz. kg; 38.00 BMI Method: General Appearance: No Apparent Distress, WD/WN Eyes: Bilateral Eye Normal Inspection, Bilateral Eye PERRL, Bilateral Eye EOMI HEENT: PERRL/EOMI, Pharynx Normal Respiratory: Lungs Clear, Normal Breath Sounds, No Accessory Muscle Use, No Respiratory Distress Cardiovascular: Regular Rate, Rhythm, No Edema, Normal Peripheral Pulses Gastrointestinal: Normal Bowel Sounds, Non Tender, Soft Back: Normal Inspection, No CVA Tenderness, No Vertebral Tenderness Extremity: Normal Capillary Refill, Normal Range of Motion, Non Tender Neurologic/Psychiatric: Alert, Oriented x3, No Motor/Sensory Deficits, Normal Mood/Affect Skin: Normal Color, Warm/Dry Progress/Results/Core Measures Suspected Sepsis SIRS Temperature: Pulse: Respiratory Rate: Blood Pressure / Mean: Results/Orders My Orders Orders - ELADIO SALEH DO Ekg Tracing (09/16/19 22:11) Continuous Ekg Monitoring (09/16/19 22:11) Cbc With Automated Diff (09/16/19 22:11) Comprehensive Metabolic Panel (09/16/19 22:11) Troponin I Fs (7/22/20 22:11) Fibrin Degradation Products (09/16/19 22:11) Chest 1 View Ap/Pa Only (09/16/19 22:11) Ns Iv 1000 Ml (Sodium Chloride 0.9%) (09/16/19 23:13) Ct Angio Chest W (09/16/19 23:30) Ns Iv 1000 Ml (Sodium Chloride 0.9%) (09/16/19 23:30) Ed Iv/Invasive Line Start (09/16/19 23:32) Vital Signs/I&O 09/16/19 22:13 Temp 37.5 Pulse 112 Resp 18 B/P (MAP) 141/55 (83) O2 Delivery Room Air Capillary Refill : Progress Note : Progress Note @2347 - Patient updated on lab and imaging results. We did discuss the elevated d-dimer and the patient mentions that she has had several falls recently and believes this could be causing tested the falsely positive. I offered to transfer the patient to [facility] where she did have a VQ scan but the patient declined stating that she wants to go home. She says that her shortness of breath is now better. She has no new concerns and is stable for discharge at this time. Advised patient to follow up with her PCP in the next 2- 3 days and to return to the emergency Department immediately for new or worsening symptoms. She expresses verbal understanding and agreement with this plan. ECG Comment @2221 - sinus tachycardia, rate of 105, left axis deviation, no acute ischemic findings, no STEMI, reviewed and interpreted by myself Departure Impression Primary Impression: Dyspnea Additional Impression: Shakiness Disposition: 01 HOME, SELF-CARE Condition: Stable Departure-Patient Inst. Decision time for Depature: 23:49 Referrals: GENEVIEVE HUFF DO (PCP/Family) Primary Care Physician Patient Instructions: Shortness of Breath (Dyspnea) (DC) Add. Discharge Instructions: Follow-up with your doctor in the next 2-3 days. Return to the emergency Department immediately for new or worsening symptoms. ELADIO SALEH DO Sep 16, 2019 22:20
[2019-09-16] MEDS ORDERED: NS IV 1000 ML 1,000 ML ONE (23:13)
[2019-09-16] MEDS ORDERED: NS IV 1000 ML 1,000 ML IV SCH (23:30)
[2019-09-16 23:54] LABS: ALANINE AMINOTRANSFERASE 21 U/L (0-55); ALKALINE PHOSPHATASE 95 U/L (40-136); BILIRUBIN,TOTAL 0.3 MG/DL (0.1-1.0); BUN/CREATININE RATIO 17; CARBON DIOXIDE 23 MMOL/L (21-32); CHLORIDE 101 MMOL/L (98-107); CREATININE SERUM 1.53 MG/DL (0.60-1.30); GFR ESTIMATED 33; GLUCOSE 168 MG/DL (70-105); POTASSIUM 4.8 MMOL/L (3.6-5.0); SODIUM 135 MMOL/L (135-145); TOTAL PROTEIN 6.7 GM/DL (6.4-8.2)
[2019-09-16 23:55] LABS: HEMATOCRIT 32 % (35-52); HEMOGLOBIN 10.2 G/DL (11.5-16.0); MEAN CORPUSCULAR HEMOGLOBIN 27 PG (25-34); MEAN CORPUSCULAR HGB CONC 32 G/DL (32-36); MEAN CORPUSCULAR VOLUME 87 FL (80-99); WHITE BLOOD COUNT 8.9 10^3/uL (4.3-11.0)
[2019-09-16 23:56] VITALS: BP 139/72
[2019-09-16 23:56] LABS: BASOPHILS % (AUTO) 0 % (0-10); EOSINOPHILS # (AUTO) 0.1 10^3/uL (0.0-0.3); EOSINOPHILS % (AUTO) 1 % (0-10); LYMPHOCYTES # (AUTO) 0.9 X 10^3 (1.0-4.0); LYMPHOCYTES % (AUTO) 10 % (12-44); MEAN PLATELET VOLUME 9.9 FL (7.4-10.4); MONOCYTES # (AUTO) 0.6 X 10^3 (0.0-1.0); MONOCYTES % (AUTO) 6 % (0-12); NEUTROPHILS # (AUTO) 7.4 X 10^3 (1.8-7.8); NEUTROPHILS % (AUTO) 83 % (42-75); PLATELET COUNT 183 10^3/uL (130-400)
--- NOTE | 2019-09-17 07:47 | Diagnostic Imaging Report ---
Indication: Dyspnea. Compared: 09/09 Findings: No focal consolidation, failure, effusion or pneumothorax. Impression: No acute-appearing abnormality. Dictated by: Dictated on workstation # [id number]
== END 2019-09-16 23:56 | disposition home or self-care (01) ==
LOC: EDUNIT# 22:02 → ER FS 22:03
DX: R06.00 Dyspnea, unspecified (principal); R25.1 Tremor, unspecified; E11.22 Type 2 diabetes mellitus with diabetic chronic kidney disease; I12.9 Hypertensive chronic kidney disease with stage 1 through stage 4 chronic kidney disease, or unspecified chronic kidney disease; N18.9 Chronic kidney disease, unspecified; Z95.5 Presence of coronary angioplasty implant and graft; Z95.1 Presence of aortocoronary bypass graft; Z87.891 Personal history of nicotine dependence; Z88.1 Allergy status to other antibiotic agents; Z88.8 Allergy status to other drugs, medicaments and biological substances
CPT/HCPCS: 36415; 71045; 80053; 84484; 85025; 85379; 93005; 96360

== ENCOUNTER 2021-01-15 04:17 | Emergency (ER) | payer MEDICARE, OTHER ==
[~2021-01-15] VITALS: Ht 157.4 cm; Wt 91.4 kg
[~2021-01-15 04:17] MED LIST changes: +ACET-2650 PO; +ACHD5005 PO; +ASPI-999 PO; +ATOR40TA70 PO; -CIPR500T4 PO; +CIPR500T5 PO; +CITA40TA11 PO; +CLOP75TA28 PO; +FURO20TA4 PO; +GABA-486 PO; +GABA300C PO; -HYDR-83 PO; +INSU100I11 SQ; +INSU300I SQ; +LORA10TA7 PO; +MAGN400T39 PO; +METF-865 PO; +METO-333 PO; +MONT10TA32 PO; +MULT-974 PO; +MV-M1TAB20 PO; +OMEP20TA7 PO; +ROPI1TAB PO; +VITA1CAP PO
[2021-01-15 04:25] VITALS: BP 149/75
--- NOTE | 2021-01-15 04:47 | Diagnostic Imaging Report ---
HIP 2-3 VIEW RIGHT INDICATION: Right hip pain COMPARISON: None available. TECHNIQUE: 2 views of the right hip FINDINGS: No fracture about the right hip. No hip dislocation. Moderate to severe osteoarthritis is present. Well-corticated ossicle with the tip of the greater trochanters likely from old injury. No features of osteonecrosis of the femoral head. IMPRESSION: 1. No acute osseous abnormality about the right hip. 2. Moderate osteoarthritis. Dictated by: Dictated on workstation # [id number]
--- NOTE | 2021-01-15 04:58 | ED Hip Pain/Injury ---
General Chief Complaint: Hip/Pelvic Problems Stated Complaint: RT HIP/LEG PAIN Nursing Triage Note: Patient states that she has been having right hip pain for approximately 6 weeks. Patient also states that she took Tylenol Arthritis and 3 "leg cramp" pills with no relief. Patient states the pain is in her groin, wraps around to her buttocks and down her right leg. Patient denies falling or injury. Source: patient Exam Limitations: no limitations History of Present Illness Date Seen by Provider: Jan 15, 2021 Time Seen by Provider: 04:45 Initial Comments Patient is a 75-year-old female who presents with right hip pain for the past 6 weeks. Patient has been evaluated by her nurse practitioner outpatient x-rays ordered which were diagnostic. She is scheduled for an MRI on Saturday. Yesterday she was up and down her basement steps multiple times which she feels may have aggravated it. Pain is worse with palpation movement standing and sitting. It is currently rated moderate to severe. Patient is taking [id number] pain medication with limited relief. No motor weakness or loss of sensations. Reports limited lumbar lower back pain. No other symptoms or complaints Severity: moderate Location: hip (R), pelvis Method of Injury: other Modifying Factors: Improves With Other Associated Symptoms: trouble walking Allergies and Home Medications Allergies Coded Allergies: acetaminophen (Verified Allergy, Unknown, 03/06/19) amoxicillin (Verified Allergy, Unknown, 03/06/19) azithromycin (Verified Allergy, Unknown, 03/06/19) baclofen (Verified Allergy, Unknown, 03/06/19) clarithromycin (Verified Allergy, Unknown, 03/06/19) lisinopril (Verified Allergy, Unknown, 03/06/19) meperidine (Verified Allergy, Unknown, 03/06/19) propoxyphene (Verified Allergy, Unknown, 03/06/19) Patient Home Medication List Home Medication List Reviewed: Yes Acetaminophen (Tylenol Arthritis) 650 Mg Tablet.er, 1,300 MG PO TID, (Reported) Entered as Reported by: SOTERO VIRAMONTES on 07/09/20 1143 Aspirin (Aspirin) 81 Mg Tab.chew, 81 MG PO DAILY, (Reported) Entered as Reported by: SOTERO VIRAMONTES on 07/09/20 1143 Atorvastatin Calcium (Atorvastatin Calcium) 40 Mg Tablet, 40 MG PO HS, (Reported) Entered as Reported by: SOTERO VIRAMONTES on 07/09/20 1136 Citalopram Hydrobromide (Citalopram HBr) 40 Mg Tablet, 40 MG PO DAILY, (Reported) Entered as Reported by: SOTERO VIRAMONTES on 07/09/20 1136 Clopidogrel Bisulfate (Clopidogrel) 75 Mg Tablet, 75 MG PO HS, (Reported) Entered as Reported by: SOTERO VIRAMONTES on 07/09/20 1136 Furosemide (Furosemide) 20 Mg Tablet, 20 MG PO DAILY, (Reported) Entered as Reported by: SOTERO VIRAMONTES on 07/09/20 1136 Gabapentin (Neurontin) 300 Mg Capsule, 300 MG PO TID, (Reported) Entered as Reported by: YENY CLAY on 07/11/20 1041 Insulin Glargine,Hum.rec.anlog (Toujeo Solostar) 300 Unit/1 Ml Insuln.pen, 45 UNIT SQ DAILY, (Reported) Entered as Reported by: SOTERO VIRAMONTES on 07/09/20 1140 Insulin Glulisine (Apidra Solostar) 100 Unit/1 Ml Insuln.pen, UNITS SQ TIDWM, (Reported) Entered as Reported by: SOTERO VIRAMONTES on 07/09/20 1140 Loratadine (Loratadine) 10 Mg Tablet, 10 MG PO DAILY, (Reported) Entered as Reported by: YENY CLAY on 07/11/20 1041 Magnesium Oxide (Magnesium) 400 Mg Tablet, 400 MG PO BID, (Reported) Entered as Reported by: YENY CLAY on 07/11/20 1041 Metformin HCl (Metformin HCl ER) 500 Mg Tab.er.24h, 500 MG PO HS, (Reported) Entered as Reported by: SOTERO VIRAMONTES on 07/09/20 1136 Metoprolol Tartrate (Metoprolol Tartrate) 25 Mg Tablet, 25 MG PO BID, (Reported) Entered as Reported by: SOTERO VIRAMONTES on 07/09/20 1136 Multivitamin (Multi-Vitamin Daily) 1 Each Tablet, 1 EACH PO DAILY, (Reported) Entered as Reported by: SOTERO VIRAMONTES on 07/09/20 1143 Mv-Mn/Iron/FA/Herbal Cmplx#190 (Vitamin D3 Complete Caplet) 1 Each Tablet, 1 EACH PO DAILY, (Reported) Entered as Reported by: SOTERO VIRAMONTES on 07/09/20 1143 Omeprazole (Omeprazole) 20 Mg Tablet.dr, 20 MG PO DAILY, (Reported) Entered as Reported by: YENY CLAY on 07/11/20 1041 Ropinirole HCl (Ropinirole HCl) 1 Mg Tablet, 2 MG PO HS, (Reported) Entered as Reported by: SOTERO VIRAMONTES on 07/09/20 1136 Ropinirole HCl (Ropinirole HCl) 1 Mg Tablet, 1 MG PO 1400, (Reported) Entered as Reported by: YENY CLAY on 07/11/20 1041 Vitamin B Complex (Vitamin B Complex) 1 Each Capsule, 1 EACH PO DAILY, (Reported) Entered as Reported by: SOTERO VIRAMONTES on 07/09/20 1143 Review of Systems Constitutional: see HPI Musculoskeletal: no symptoms reported Skin: see HPI Psychiatric/Neurological: No Symptoms Reported Past Rootwnc-Enazka-Mmwgeg Hx Patient Social History Tobacco Use?: No Substance use?: No Alcohol Use?: No Pt feels they are or have been: No Immunizations Up To Date First/Initial COVID19 Vaccinat: June Second COVID19 Vaccination Mykel: June COVID19 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 Seasonal Allergies Seasonal Allergies: No Past Medical History Surgeries: Yes CABG, Coronary Stent, Eye Surgery, Open Heart Surgery Respiratory: No Cardiac: Yes Coronary Artery Disease, High Cholesterol, Hypertension Neurological: No Genitourinary: Yes (Chronic kidney disease) Gastrointestinal: No Musculoskeletal: No Endocrine: Yes Diabetes, Non-Insulin dep HEENT: No Cancer: No Psychosocial: No Integumentary: No Blood Disorders: No Family Medical History Noncontributory Physical Exam Vital Signs Vital Signs - First Documented 01/15/21 04:25 Temp 36.6 Pulse 86 Resp 16 B/P (MAP) 149/75 (99) Pulse Ox 97 O2 Delivery Room Air Capillary Refill : Less Than 3 Seconds Height, Weight, BMI Height: '" Weight: lbs. oz. kg; 36.00 BMI Method: General Appearance: Moderate Distress (Unable to sit down secondary to pain) Back: Normal Inspection, No CVA Tenderness Extremity: Other (Diffuse low back, outer hip and lower pelvic pain/tenderness) Neurologic/Psychiatric: Alert, Oriented x3 Progress/Results/Core Measures Results/Orders My Orders Orders - CRUZ ISEBLL DO Hip 2-3 View Right (01/15/21 04:27) Oxycodone Immediate Rel Tablet (Oxyir Ta (01/15/21 05:00) Vital Signs/I&O 01/15/21 04:25 Temp 36.6 Pulse 86 Resp 16 B/P (MAP) 149/75 (99) Pulse Ox 97 O2 Delivery Room Air Blood Pressure Mean: 99 Departure Communication (Admissions) Pelvis: No acute findings. Advanced osteoarthritis noted to be present. Patient's pain addressed. Recommendations are to follow-up with outpatient MRI as scheduled Impression Primary Impression: Chronic right hip pain Disposition: HOME, SELF-CARE Condition: Stable Departure-Patient Inst. Decision time for Depature: 04:56 Referrals: GENEVIEVE HUFF DO (PCP) Primary Care Physician CHRISTINE YI MD (Family) Primary Care Physician Patient Instructions: Hip Pain Add. Discharge Instructions: Please take newly prescribed pain medication as directed follow-up with your outpatient MRI as scheduled and PCP for further pain management. All discharge instructions reviewed with patient and/or family. Voiced understanding. Scripts Oxycodone HCl/Acetaminophen (Oxycodone-Acetaminophen 5-325) 1 Each Tablet 1 EACH PO Q4H PRN for PAIN-MODERATE MDD 6 for 3 Days, #14 TAB 0 Refills Prov: CRUZ ISBELL DO 01/15/21 CRUZ ISBELL DO Jan 15, 2021 04:58
[2021-01-15] MEDS ORDERED: OXYC1TAB11 PO (04:59)
== END 2021-01-15 05:01 | disposition home or self-care (01) ==
LOC: EDUNIT# 04:17 → ER FS 04:20
DX: G89.29 Other chronic pain (principal); M25.551 Pain in right hip; I10 Essential (primary) hypertension; E78.00 Pure hypercholesterolemia, unspecified; I25.10 Atherosclerotic heart disease of native coronary artery without angina pectoris; E11.9 Type 2 diabetes mellitus without complications; Z79.82 Long term (current) use of aspirin; Z79.84 Long term (current) use of oral hypoglycemic drugs; Z79.01 Long term (current) use of anticoagulants; Z79.899 Other long term (current) drug therapy
CPT/HCPCS: 73502

== ENCOUNTER 2021-03-04 20:42 | Emergency (ER) | payer MEDICARE, OTHER ==
[~2021-03-04] VITALS: Ht 157 cm; Wt 63.5 kg
[~2021-03-04 20:42] MED LIST changes: -CITA40TA11 PO; +CITA40TA13 PO; +MONT-40 PO; -MONT10TA32 PO; +OXYC1TAB11 PO
[2021-03-04] MEDS ORDERED: DEXTROSE 50% 50 ML (IMS) SYR IV STA (20:52)
[2021-03-04] MEDS ORDERED: ONDANSETRON 4 MG/2 ML (SDV) Z0FRAN IVP STA (20:52)
[2021-03-04 21:06] LABS: HEMATOCRIT 36 % (35-52); HEMOGLOBIN 12.2 g/dL (11.5-16.0); MEAN CORPUSCULAR HEMOGLOBIN 29 pg (25-34); MEAN CORPUSCULAR HGB CONC 34 g/dL (32-36); MEAN CORPUSCULAR VOLUME 87 fL (80-99); MEAN PLATELET VOLUME 10.3 fL (9.0-12.2); PLATELET COUNT 200 10^3/uL (130-400); WHITE BLOOD COUNT 6.5 10^3/uL (4.3-11.0)
[2021-03-04 21:07] LABS: BASOPHILS % (AUTO) 1 % (0-10); EOSINOPHILS # (AUTO) 0.1 10^3/uL (0.0-0.3); EOSINOPHILS % (AUTO) 1 % (0-10); LYMPHOCYTES % (AUTO) 31 % (12-44); MONOCYTES # (AUTO) 0.6 X 10^3 (0.0-1.0); MONOCYTES % (AUTO) 9 % (0-12); NEUTROPHILS # (AUTO) 3.8 X 10^3 (1.8-7.8); NEUTROPHILS % (AUTO) 59 % (42-75)
[2021-03-04 21:18] LABS: CREATININE SERUM 1.39 MG/DL (0.60-1.30); POTASSIUM 3.8 MMOL/L (3.6-5.0)
[2021-03-04 21:19] LABS: ALBUMIN 4.1 GM/DL (3.2-4.5); BILIRUBIN,TOTAL 0.2 MG/DL (0.1-1.0); CALCIUM 9.7 MG/DL (8.5-10.1); TOTAL PROTEIN 6.6 GM/DL (6.4-8.2)
--- NOTE | 2021-03-04 21:36 | ED General ---
General Chief Complaint: Glucose Problems Stated Complaint: LOW BLOOD SUGAR Nursing Triage Note: Pt reports low blood glucose of "47" at home. Pt reports nausea and feeling gen. weak today. Pt attempted to eat peanut butter and cookies. Pt is A&O x 4 and ambulatory with steady gait. Source of Information: Patient History of Present Illness Date Seen by Provider: Mar 04, 2021 Time Seen by Provider: 20:43 Initial Comments 75 yo female presenting with complaints of low blood sugar this evening. She ate around 2 pm and took her insulin then. She has insulin to take 3 times a day with meals and long acting insulin as well. She states that she has eatem Reeses Peanut Butter cups, 3 metz salad, cookies, pecans, even a spoonful of peanut butter before coming to the ED and she reports her glucometer was reading 47. She was feeling weak and nauseated. She denies taking extra insulin, being sick, vomiting, diarrhea, pain with urination. Timing/Duration: 1-3 Hours Associated Systoms: No Chest Pain, No Cough, No Diaphoresis, No Fever/Chills, No Headaches; Malaise, Nausea/Vomiting (nausea but no vomiting); No Seizure, No Shortness of Air, No Syncope; Weakness Allergies and Home Medications Allergies Coded Allergies: acetaminophen (Verified Allergy, Unknown, 03/06/19) amoxicillin (Verified Allergy, Unknown, 03/06/19) azithromycin (Verified Allergy, Unknown, 03/06/19) baclofen (Verified Allergy, Unknown, 03/06/19) clarithromycin (Verified Allergy, Unknown, 03/06/19) lisinopril (Verified Allergy, Unknown, 03/06/19) meperidine (Verified Allergy, Unknown, 03/06/19) propoxyphene (Verified Allergy, Unknown, 03/06/19) Patient Home Medication List Home Medication List Reviewed: Yes Acetaminophen (Tylenol Arthritis) 650 Mg Tablet.er, 1,300 MG PO TID, (Reported) Entered as Reported by: SOTERO VIRAMONTES on 07/09/20 1143 Aspirin (Aspirin) 81 Mg Tab.chew, 81 MG PO DAILY, (Reported) Entered as Reported by: SOTERO VIRAMONTES on 07/09/20 1143 Atorvastatin Calcium (Atorvastatin Calcium) 40 Mg Tablet, 40 MG PO HS, (Reported) Entered as Reported by: SOTERO VIRAMONTES on 07/09/20 1136 Citalopram Hydrobromide (Citalopram HBr) 40 Mg Tablet, 40 MG PO DAILY, (Reported) Entered as Reported by: SOTERO VIRAMONTES on 07/09/20 1136 Clopidogrel Bisulfate (Clopidogrel) 75 Mg Tablet, 75 MG PO HS, (Reported) Entered as Reported by: SOTERO VIRAMONTES on 07/09/20 1136 Furosemide (Furosemide) 20 Mg Tablet, 20 MG PO DAILY, (Reported) Entered as Reported by: SOTERO VIRAMONTES on 07/09/20 1136 Gabapentin (Neurontin) 300 Mg Capsule, 300 MG PO TID, (Reported) Entered as Reported by: YENY CLAY on 07/11/20 1041 Insulin Glargine,Hum.rec.anlog (Toujeo Solostar) 300 Unit/1 Ml Insuln.pen, 45 UNIT SQ DAILY, (Reported) Entered as Reported by: SOTERO VIRAMONTES on 07/09/20 1140 Insulin Glulisine (Apidra Solostar) 100 Unit/1 Ml Insuln.pen, UNITS SQ TIDWM, (Reported) Entered as Reported by: SOTERO VIRAMONTES on 07/09/20 1140 Loratadine (Loratadine) 10 Mg Tablet, 10 MG PO DAILY, (Reported) Entered as Reported by: YENY CLAY on 07/11/20 1041 Magnesium Oxide (Magnesium) 400 Mg Tablet, 400 MG PO BID, (Reported) Entered as Reported by: YENY CLAY on 07/11/20 1041 Metformin HCl (Metformin HCl ER) 500 Mg Tab.er.24h, 500 MG PO HS, (Reported) Entered as Reported by: SOTERO VIRAMONTES on 07/09/20 1136 Metoprolol Tartrate (Metoprolol Tartrate) 25 Mg Tablet, 25 MG PO BID, (Reported) Entered as Reported by: SOTERO VIRAMONTES on 07/09/20 1136 Multivitamin (Multi-Vitamin Daily) 1 Each Tablet, 1 EACH PO DAILY, (Reported) Entered as Reported by: SOTERO VIRAMONTES on 07/09/20 1143 Mv-Mn/Iron/FA/Herbal Cmplx#190 (Vitamin D3 Complete Caplet) 1 Each Tablet, 1 EACH PO DAILY, (Reported) Entered as Reported by: SOTERO VIRAMONTES on 07/09/20 1143 Omeprazole (Omeprazole) 20 Mg Tablet.dr, 20 MG PO DAILY, (Reported) Entered as Reported by: YENY CLAY on 07/11/20 1041 Oxycodone HCl/Acetaminophen (Oxycodone-Acetaminophen 5-325) 1 Each Tablet, 1 EACH PO Q4H PRN for PAIN-MODERATE Prescribed by: CRUZ ISBELL on 01/15/21 0500 Ropinirole HCl (Ropinirole HCl) 1 Mg Tablet, 2 MG PO HS, (Reported) Entered as Reported by: SOTERO VIRAMONTES on 07/09/20 1136 Ropinirole HCl (Ropinirole HCl) 1 Mg Tablet, 1 MG PO 1400, (Reported) Entered as Reported by: YENY CLAY on 07/11/20 1041 Vitamin B Complex (Vitamin B Complex) 1 Each Capsule, 1 EACH PO DAILY, (Reported) Entered as Reported by: SOTERO VIRAMONTES on 07/09/20 1143 Review of Systems Review of Systems Constitutional: see HPI; No chills, No fever EENTM: no symptoms reported Respiratory: no symptoms reported Cardiovascular: no symptoms reported Gastrointestinal: see HPI Genitourinary: no symptoms reported Musculoskeletal: no symptoms reported Skin: No rash Psychiatric/Neurological: Anxiety Past Yszvfxv-Uyhdbk-Upvuyb Hx Patient Social History Tobacco Use?: No Smoking Status: Former Smoker Use of E-Cig and/or Vaping dev: No Substance use?: No Alcohol Use?: No Pt feels they are or have been: No Immunizations Up To Date Influenza Vaccine Up-to-Date: No; Not Current First/Initial COVID19 Vaccinat: June Second COVID19 Vaccination Mykel: Fatoumata June 2020 Seasonal Allergies Seasonal Allergies: No Past Medical History Surgery/Hospitalization HX: Insulin dependent diabetes, hypertension, coronary artery disease, chronic renal insufficiency Surgeries: Yes CABG, Coronary Stent, Eye Surgery, Open Heart Surgery Respiratory: No Cardiac: Yes Coronary Artery Disease, High Cholesterol, Hypertension Neurological: No Genitourinary: Yes (Chronic kidney disease) Gastrointestinal: No Musculoskeletal: No Endocrine: Yes Diabetes, Non-Insulin dep HEENT: No Cancer: No Psychosocial: No Integumentary: No Blood Disorders: No Family Medical History Noncontributory Physical Exam Vital Signs Vital Signs - First Documented 03/04/21 03/04/21 20:45 22:22 Temp 36.3 Pulse 94 Resp 18 B/P (MAP) 120/64 Pulse Ox 99 O2 Delivery Room Air Capillary Refill : Less Than 3 Seconds Height, Weight, BMI Height: '" Weight: lbs. oz. 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-XII Norm as Tested Skin: Warm/Dry Progress/Results/Core Measures Suspected Sepsis SIRS Temperature: Pulse: 94 Respiratory Rate: 18 Laboratory Tests 03/04/21 20:50: White Blood Count 6.5 Blood Pressure / Mean: Laboratory Tests 03/04/21 20:50: Creatinine 1.39H, Platelet Count 200, Total Bilirubin 0.2 Results/Orders Lab Results Laboratory Tests Test 03/04/21 20:47 03/04/21 20:50 03/04/21 22:10 Range/Units Glucometer 64 L 148 H 70-110 MG/DL White Blood Count 6.5 4.3-11.0 10^3/uL Red Blood Count 4.21 3.80-5.11 10^6/uL Hemoglobin 12.2 11.5-16.0 g/dL Hematocrit 36 35-52 % Mean Corpuscular Volume 87 80-99 fL Mean Corpuscular Hemoglobin 29 25-34 pg Mean Corpuscular Hemoglobin Concent 34 32-36 g/dL Red Cell Distribution Width 13.6 10.0-14.5 % Platelet Count 200 130-400 10^3/uL Mean Platelet Volume 10.3 9.0-12.2 fL Immature Granulocyte % (Auto) 0 % Neutrophils (%) (Auto) 59 42-75 % Lymphocytes (%) (Auto) 31 12-44 % Monocytes (%) (Auto) 9 0-12 % Eosinophils (%) (Auto) 1 0-10 % Basophils (%) (Auto) 1 0-10 % Neutrophils # (Auto) 3.8 1.8-7.8 X 10^3 Lymphocytes # (Auto) 2.0 1.0-4.0 X 10^3 Monocytes # (Auto) 0.6 0.0-1.0 X 10^3 Eosinophils # (Auto) 0.1 0.0-0.3 10^3/uL Basophils # (Auto) 0.0 0.0-0.1 10^3/uL Immature Granulocyte # (Auto) 0.0 0.0-0.1 10^3/uL Sodium Level 141 135-145 MMOL/L Potassium Level 3.8 3.6-5.0 MMOL/L Chloride Level 104 98-107 MMOL/L Carbon Dioxide Level 25 21-32 MMOL/L Anion Gap 12 5-14 MMOL/L Blood Urea Nitrogen 23 H 7-18 MG/DL Creatinine 1.39 H 0.60-1.30 MG/DL Estimat Glomerular Filtration Rate 37 BUN/Creatinine Ratio 17 Glucose Level 62 L 70-105 MG/DL Calcium Level 9.7 8.5-10.1 MG/DL Corrected Calcium 9.6 8.5-10.1 MG/DL Total Bilirubin 0.2 0.1-1.0 MG/DL Aspartate Amino Transf (AST/SGOT) 17 5-34 U/L Alanine Aminotransferase (ALT/SGPT) 17 0-55 U/L Alkaline Phosphatase 80 40-136 U/L Total Protein 6.6 6.4-8.2 GM/DL Albumin 4.1 3.2-4.5 GM/DL My Orders Orders - DANITZA JARVIS MD Comprehensive Metabolic Panel (03/04/21 20:52) Ed Iv/Invasive Line Start (03/04/21 20:52) Cbc With Automated Diff (03/04/21 20:52) D50w (Emergency) Syringe (Dextrose 50% 5 (03/04/21 20:52) Ondansetron Injection (Zofran Injectio (03/04/21 20:52) Accucheck Stat ONCE (03/04/21 22:02) Vital Signs/I&O 03/04/21 03/04/21 03/04/21 20:45 22:22 22:57 Temp 36.3 Pulse 94 84 78 Resp 18 15 14 B/P (MAP) 120/64 117/76 Pulse Ox 99 100 96 O2 Delivery Room Air Room Air Room Air Capillary Refill : Less Than 3 Seconds Progress Note #1: Progress Note Obtain basic labs to ensure that there is no electrolyte imbalance. Give an amp of D50 through an IV. Try to have her eat a little something more with some peanut butter and protein here. Will recheck glucose after she has eaten more food. Progress Note #2: Progress Note Labs all stable without acute significant abnormality. Stable renal insufficiency. Progress Note #3: Progress Note sugar is 148 and while discussing results with pt it did go down to 143 on her machine. Will have her go home and eat at least an ounce or 2 of pork chop to get some protein in her system before bed. Consider cutting insulin doses in half for Saturday if she is still running low on sugars. Check with clinic about managing her dosing and consideration of insulin pump Departure Impression Primary Impression: Hypoglycemia associated with diabetes Disposition: HOME, SELF-CARE Condition: Stable Departure-Patient Inst. Decision time for Depature: 22:46 Referrals: GENEVIEVE HUFF DO (PCP) Primary Care Physician CHRISTINE YI MD (Family) Primary Care Physician Patient Instructions: Low Blood Sugar, Adult ED, Diabetes and Diet Add. Discharge Instructions: Eat some protein when you get home. At least an ounce or two of the Pork Chop you have to help keep your sugars up overnight. Consider cutting your insulin doses in half for tomorrow if you are still running low. Check back with your providers so that you can check about the insulin pump and any adjustments to your doses of insulin All discharge instructions reviewed with patient and/or family. Voiced understanding. DANITZA JARVIS MD Mar 04, 2021 21:36
[2021-03-04 22:57] VITALS: BP 117/76
== END 2021-03-04 22:51 | disposition home or self-care (01) ==
LOC: EDUNIT# 20:42 → ER FS 20:45
DX: E11.649 Type 2 diabetes mellitus with hypoglycemia without coma (principal); I10 Essential (primary) hypertension; E78.00 Pure hypercholesterolemia, unspecified; I25.10 Atherosclerotic heart disease of native coronary artery without angina pectoris; Z87.891 Personal history of nicotine dependence; Z79.84 Long term (current) use of oral hypoglycemic drugs; Z79.899 Other long term (current) drug therapy; Z79.82 Long term (current) use of aspirin
CPT/HCPCS: 36415; 80053; 82947; 85025

== ENCOUNTER 2021-07-16 15:11 | Emergency (ER) | payer MEDICARE, OTHER ==
[~2021-07-16] VITALS: Ht 157 cm; Wt 87.0 kg
[~2021-07-16 15:11] MED LIST changes: +OMEP20TA56 PO; -OMEP20TA7 PO
[2021-07-16] MEDS ORDERED: ORPHENADRINE 60 MG/2 ML (NORFLEX) AMP (ED ONLY) IVP STA (15:29)
[2021-07-16] MEDS ORDERED: fentaNYL INJ 100 MCG/2 ML AMP IVP STA ×2 (15:29→17:10)
[2021-07-16 15:33] VITALS: BP 124/57
--- NOTE | 2021-07-16 15:35 | ED Back Pain ---
General Chief Complaint: Back Problems Stated Complaint: BACK & LT LEG PAIN Source of Information: Patient, Spouse History of Present Illness Date Seen by Provider: July 16, 2021 Time Seen by Provider: 15:13 Initial Comments 76-year-old female presenting with complaints of pain in her back where she had a spinal fusion of her lumbar spine done 2 weeks ago. This was performed at [facility] in [facility]. She has pain going down the left leg as well. This is been worsening since surgery but is much worse in the last 2 or 3 days. She has been taking hydrocodone for pain at home but feels that it was not helping. She last took hydrocodone 1/2 pill at noon and then the other half at 130. She continued to have severe pain in her low back and radiating down the left leg. She has not tried to call her surgeon because it was a weekend. She has not tried to go to [facility] where she had surgery performed. She denies any new fall or injury Location: Lumbar Spine (and down left leg) Timing/Duration: Other (worsening over 2 weeks since surgery and much worse in last few days) Severity: Severe Pain/Injury Location: Back (radiates down left leg) Radiation: Lower Legs (left leg) Modifying Factors: Worse With Movement Associated Symptoms: muscle spasms; No fever, No weakness, No numbness in legs/feet, No tingling in legs/feet, No sensory/motor loss; lower back pain; No loss of bladder control, No loss of bowel control Allergies and Home Medications Allergies Coded Allergies: acetaminophen (Verified Allergy, Unknown, 03/06/19) amoxicillin (Verified Allergy, Unknown, 03/06/19) azithromycin (Verified Allergy, Unknown, 03/06/19) baclofen (Verified Allergy, Unknown, 03/06/19) clarithromycin (Verified Allergy, Unknown, 03/06/19) lisinopril (Verified Allergy, Unknown, 03/06/19) meperidine (Verified Allergy, Unknown, 03/06/19) propoxyphene (Verified Allergy, Unknown, 03/06/19) Patient Home Medication List Home Medication List Reviewed: Yes Acetaminophen (Tylenol Arthritis) 650 Mg Tablet.er, 1,300 MG PO TID, (Reported) Entered as Reported by: SOTERO VIRAMONTES on 07/09/20 1143 Aspirin (Aspirin) 81 Mg Tab.chew, 81 MG PO DAILY, (Reported) Entered as Reported by: SOTERO VIRAMONTES on 07/09/20 1143 Atorvastatin Calcium (Atorvastatin Calcium) 40 Mg Tablet, 40 MG PO HS, (Reported) Entered as Reported by: SOTERO VIRAMONTES on 07/09/20 1136 Citalopram Hydrobromide (Citalopram HBr) 40 Mg Tablet, 40 MG PO DAILY, (Reported) Entered as Reported by: SOTERO VIRAMONTES on 07/09/20 1136 Clopidogrel Bisulfate (Clopidogrel) 75 Mg Tablet, 75 MG PO HS, (Reported) Entered as Reported by: SOTERO VIRAMONTES on 07/09/20 1136 Cyclobenzaprine HCl (Cyclobenzaprine HCl) 10 Mg Tablet, 10 MG PO BID PRN for muscle spasms/back pain Prescribed by: DANITZA JARVIS on 07/16/21 1714 Furosemide (Furosemide) 20 Mg Tablet, 20 MG PO DAILY, (Reported) Entered as Reported by: SOTERO VIRAMONTES on 07/09/20 1136 Gabapentin (Neurontin) 300 Mg Capsule, 300 MG PO TID, (Reported) Entered as Reported by: YENY CLAY on 07/11/20 1041 Insulin Glargine,Hum.rec.anlog (Toujeo Solostar) 300 Unit/1 Ml Insuln.pen, 45 UNIT SQ DAILY, (Reported) Entered as Reported by: SOTERO VIRAMONTES on 07/09/20 1140 Insulin Glulisine (Apidra Solostar) 100 Unit/1 Ml Insuln.pen, UNITS SQ TIDWM, (Reported) Entered as Reported by: SOTERO VIRAMONTES on 07/09/20 1140 Loratadine (Loratadine) 10 Mg Tablet, 10 MG PO DAILY, (Reported) Entered as Reported by: YENY CLAY on 07/11/20 1041 Magnesium Oxide (Magnesium) 400 Mg Tablet, 400 MG PO BID, (Reported) Entered as Reported by: YENY CLAY on 07/11/20 1041 Metformin HCl (Metformin HCl ER) 500 Mg Tab.er.24h, 500 MG PO HS, (Reported) Entered as Reported by: SOTERO VIRAMONTES on 07/09/20 1136 Metoprolol Tartrate (Metoprolol Tartrate) 25 Mg Tablet, 25 MG PO BID, (Reported) Entered as Reported by: SOTERO VIRAMONTES on 07/09/20 1136 Multivitamin (Multi-Vitamin Daily) 1 Each Tablet, 1 EACH PO DAILY, (Reported) Entered as Reported by: SOTERO VIRAMONTES on 07/09/20 1143 Mv-Mn/Iron/FA/Herbal Cmplx#190 (Vitamin D3 Complete Caplet) 1 Each Tablet, 1 EACH PO DAILY, (Reported) Entered as Reported by: SOTERO VIRAMONTES on 07/09/20 1143 Omeprazole (Omeprazole) 20 Mg Tablet.dr, 20 MG PO DAILY, (Reported) Entered as Reported by: YENY CLAY on 07/11/20 1041 Oxycodone HCl/Acetaminophen (Oxycodone-Acetaminophen 5-325) 1 Each Tablet, 1 EACH PO Q4H PRN for PAIN-MODERATE Prescribed by: CRUZ ISBELL on 01/15/21 0500 Ropinirole HCl (Ropinirole HCl) 1 Mg Tablet, 2 MG PO HS, (Reported) Entered as Reported by: SOTERO VIRAMONTES on 07/09/20 1136 Ropinirole HCl (Ropinirole HCl) 1 Mg Tablet, 1 MG PO 1400, (Reported) Entered as Reported by: YENY CLAY on 07/11/20 1041 Vitamin B Complex (Vitamin B Complex) 1 Each Capsule, 1 EACH PO DAILY, (Reported) Entered as Reported by: SOTERO VIRAMONTES on 07/09/20 1143 Review of Systems Constitutional: No chills, No fever EENTM: no symptoms reported Respiratory: no symptoms reported Cardiovascular: no symptoms reported Gastrointestinal: no symptoms reported Genitourinary: no symptoms reported Musculoskeletal: see HPI Skin: No change in color, No rash Psychiatric/Neurological: Denies Numbness, Denies Paresthesia Past Geqfawp-Cevykc-Zajmge Hx Patient Social History Tobacco Use?: No Use of E-Cig and/or Vaping dev: No Substance use?: No Alcohol Use?: No Immunizations Up To Date First/Initial COVID19 Vaccinat: June Second COVID19 Vaccination Mykel: Moderna June 2020 Seasonal Allergies Seasonal Allergies: No Past Medical History Surgery/Hospitalization HX: Insulin dependent diabetes, hypertension, coronary artery disease, chronic renal insufficiency, Lumbar spine fusion June 2021 Surgeries: Yes CABG, Coronary Stent, Eye Surgery, Open Heart Surgery Respiratory: No Cardiac: Yes Coronary Artery Disease, High Cholesterol, Hypertension Neurological: No Genitourinary: Yes (Chronic kidney disease) Gastrointestinal: No Musculoskeletal: No Endocrine: Yes Diabetes, Non-Insulin dep HEENT: No Cancer: No Psychosocial: No Integumentary: No Blood Disorders: No Family Medical History Noncontributory Physical Exam Vital Signs Vital Signs - First Documented 07/16/21 15:33 Temp 36.4 Pulse 93 Resp 18 B/P (MAP) 124/57 (79) Pulse Ox 96 Capillary Refill : Height, Weight, BMI Height: '" Weight: lbs. oz. kg; 25.00 BMI Method: General Appearance: Anxious, Moderate Distress HEENT: PERRL/EOMI, Pharynx Normal Neck: Full Range of Motion, Normal Inspection, Non Tender, Supple Cardiovascular: Regular Rate, Rhythm, Normal Peripheral Pulses Respiratory: Chest Non Tender, Lungs Clear, Normal Breath Sounds Back: No CVA Tenderness, Vertebral Tenderness (lumbar tenderness and SI joint on left side with pain going down left leg) Neurologic/Psychiatric: Alert, Oriented x3, shipper and receiving II-XII Norm as Tested Skin: Normal Color, Warm/Dry; No Ecchymosis, No Erythema Progress/Results/Core Measures Results/Orders Lab Results Laboratory Tests Test 07/16/21 15:35 Range/Units White Blood Count 4.6 4.3-11.0 10^3/uL Red Blood Count 3.44 L 3.80-5.11 10^6/uL Hemoglobin 9.5 L 11.5-16.0 g/dL Hematocrit 29 L 35-52 % Mean Corpuscular Volume 84 80-99 fL Mean Corpuscular Hemoglobin 28 25-34 pg Mean Corpuscular Hemoglobin Concent 33 32-36 g/dL Red Cell Distribution Width 13.2 10.0-14.5 % Platelet Count 221 130-400 10^3/uL Mean Platelet Volume 8.8 L 9.0-12.2 fL Immature Granulocyte % (Auto) 0 % Neutrophils (%) (Auto) 60 42-75 % Lymphocytes (%) (Auto) 30 12-44 % Monocytes (%) (Auto) 7 0-12 % Eosinophils (%) (Auto) 2 0-10 % Basophils (%) (Auto) 0 0-10 % Neutrophils # (Auto) 2.8 1.8-7.8 10^3/uL Lymphocytes # (Auto) 1.4 1.0-4.0 10^3/uL Monocytes # (Auto) 0.3 0.0-1.0 10^3/uL Eosinophils # (Auto) 0.1 0.0-0.3 10^3/uL Basophils # (Auto) 0.0 0.0-0.1 10^3/uL Immature Granulocyte # (Auto) 0.0 0.0-0.1 10^3/uL Sodium Level 134 L 135-145 MMOL/L Potassium Level 4.8 3.6-5.0 MMOL/L Chloride Level 97 L 98-107 MMOL/L Carbon Dioxide Level 24 21-32 MMOL/L Anion Gap 13 5-14 MMOL/L Blood Urea Nitrogen 21 H 7-18 MG/DL Creatinine 1.44 H 0.60-1.30 MG/DL Estimat Glomerular Filtration Rate 37 BUN/Creatinine Ratio 15 Glucose Level 216 H 70-105 MG/DL Calcium Level 9.2 8.5-10.1 MG/DL Corrected Calcium 9.3 8.5-10.1 MG/DL Total Bilirubin 0.3 0.1-1.0 MG/DL Aspartate Amino Transf (AST/SGOT) 15 5-34 U/L Alanine Aminotransferase (ALT/SGPT) 10 0-55 U/L Alkaline Phosphatase 114 40-136 U/L C-Reactive Protein 0.98 H <0.50 MG/DL Total Protein 6.7 6.4-8.2 GM/DL Albumin 3.9 3.2-4.5 GM/DL My Orders Orders - DANITZA JARVIS MD Comprehensive Metabolic Panel (07/16/21 15:27) Ed Iv/Invasive Line Start (07/16/21 15:27) Cbc With Automated Diff (07/16/21 15:27) Crp Fs (07/16/21 15:27) Ct Lumbar Spine Wo (07/16/21 15:27) Ct Pelvis Wo (07/16/21 15:27) Fentanyl Inj (Sublimaze Injection) (07/16/21 15:29) Orphenadrine Inj (Ed Only) (Norflex Inje (07/16/21 15:29) Fentanyl Inj (Sublimaze Injection) (07/16/21 17:10) Hydrocodone/Apap 5/325 Tablet (Lortab 5 (07/16/21 17:10) Vital Signs/I&O 07/16/21 15:33 Temp 36.4 Pulse 93 Resp 18 B/P (MAP) 124/57 (79) Pulse Ox 96 Progress Progress Note #1: Progress Note Obtain basic labs and CRP to look for signs of infection. Order CT scan of the lumbar spine and pelvis without contrast to evaluate her increased pain and radiculopathy going down the left leg. From a pain standpoint she states that she can tolerate fentanyl so we will administer 50 mcg of fentanyl along with 30 mg of Norflex to try and help with her back pain. Progress Note #2: Progress Note Labs appear stable without signs of infection. She has a normal white count 4.6. She does have mild elevation of her CRP which may be consistent with just her healing process after surgery. Her chemistry panel appears stable. The CT scan does not show any acute fractures or dislocation. Her hardware appears to be intact and in place. She does have a seroma and fluid collection but no definite signs of infection. Counseled patient and family about results. Advised to take full hydrocodone at a time instead of doing half of the pill at a time. Try to keep her pain controlled. Call the spine doctor in the morning to check and see if they want to see her sooner than Saturday. Try using the muscle relaxer for added pain control Diagnostic Imaging Diagonstic Imaging: CT Plain Films/CT/US/NM/MRI: pelvis Comments [facility] [place], [place] NAME: UT ESPINOSA [facility] REC#: [id number] PT STATUS: REG ER : 1945 PHYSICIAN: DANITZA JARVIS MD ADMIT DATE: 07/16/21/ER FS Draft Date of Exam:07/16/21 CT PELVIS WO Procedure: CT pelvis without contrast. Technique: Multiple contiguous axial images were obtained through the pelvis without the use of intravenous contrast. Sagittal and coronal reformations were performed. Auto Exposure Controls were utilized during the CT exam to meet ALARA standards for radiation dose reduction. Date: July 16, 2021. Indication: 76-year-old female, left hip pain. History of lumbar spine surgery two weeks ago. Comparison: Right hip radiographs January 15, 2021. Left hip radiographs August 09, 2019. Findings: The hips are not dislocated. There is chondrocalcinosis. The pubic symphysis and sacroiliac joints are normally aligned. There is no identified acute fracture. There is no identified cortical or aggressive bone destruction. Please see separately dictated CT lumbar spine report for findings of the lumbar spine. There are atherosclerotic calcifications. There is no identified focal fluid collection at the level of the pelvis or either hip. There is no free pelvic fluid. Impression: 1. No identified acute abnormality at the level of the pelvis or either hip. 2. Please see separately dictated CT lumbar spine report for specific evaluation of the lumbar spine. Dictated on workstation # [id number] Dict: 07/16/21 1603 Trans: 07/16/21 1610 [facility] [id number] Interpreted by: DAMEON PARKER MD Electronically signed by: Reviewed: Reviewed by Me Diagonstic Imaging: CT Plain Films/CT/US/NM/MRI: other (lumbar spine) Comments NAME: TU ESPINOSA [facility] REC#: [id number] PT STATUS: REG ER : 1945 PHYSICIAN: DANITZA JARVIS MD ADMIT DATE: 07/16/21/ER FS Draft Date of Exam:07/16/21 CT LUMBAR SPINE WO PROCEDURE: CT lumbar spine without contrast. TECHNIQUE: Multiple contiguous axial images were obtained through the lumbar spine without the use of intravenous contrast. Sagittal and coronal reformations were then performed. Auto Exposure Controls were utilized during the CT exam to meet ALARA standards for radiation dose reduction. INDICATION: Low back pain since fusion surgery two weeks ago. COMPARISON: None. FINDINGS: There is posterior fusion of the lumbar spine from L4 to L5 with bilateral pedicle screws and posterior fusion rods. Laminectomy change is noted at L4. No hardware complication is seen. There is significant streak artifact from the hardware. There is a subcutaneous fluid collection posteriorly, most likely it is postoperative seroma which measures at least 2.9 x 2.5 cm in size on axial imaging, and as much as 8.2 cm craniocaudal. No acute fracture is seen in the lumbar spine. There is grade 1 anterolisthesis at L4-L5. There is marked atherosclerosis of the aorta. There is extensive diverticulosis of the sigmoid colon. There appear to be parapelvic cysts in the kidneys, bilaterally. Soft tissues of the spinal canal are suboptimally evaluated on noncontrast CT. No definite high-grade foraminal stenosis is seen. IMPRESSION: 1. Posterior fusion of L4-L5. No evidence of hardware complication. 2. No acute fracture is seen in the lumbar spine. 3. Postsurgical changes with fluid collection in the subcutaneous fat posteriorly. This is most likely a postoperative seroma, although abscess and hematoma are not excluded. Dictated on workstation # [id number] Dict: 07/16/21 1601 Trans: 07/16/21 1613 [facility] [id number] Interpreted by: LUIS ALBERTO ACE MD Electronically signed by: Reviewed: Reviewed by Me Departure Impression Primary Impression: Acute exacerbation of chronic low back pain Additional Impressions: Lumbar back pain with radiculopathy affecting left lower extremity Status post lumbar spinal fusion Disposition: HOME, SELF-CARE Condition: Stable Departure-Patient Inst. Decision time for Depature: 17:11 Referrals: GENEVIEVE HUFF DO (PCP) Primary Care Physician Patient Instructions: Low Back Pain ED, Opioids for Short-Term Treatment of Pain ED, Sciatica ED Add. Discharge Instructions: You may go ahead and take a dose of the muscle relaxer after you fill the prescription. Take a full or whole pill of your hydrocodone every 6 hours to help control your pain. Try alternating ice and heat to your back to help with the pain and this would help your body absorb the fluid that has collected as part of the healing process. Check back with your spine doctor by calling them tomorrow morning to make sure that you still have an appointment Saturday to be seen. Also you could ask them about your increased pain to see if they wanted to get you in sooner than Saturday. All discharge instructions reviewed with patient and/or family. Voiced understanding. Scripts Cyclobenzaprine HCl (Cyclobenzaprine HCl) 10 Mg Tablet 10 MG PO BID PRN for muscle spasms/back pain for 10 Days, #20 TAB 0 Refills Prov: DANITZA JARVIS MD 07/16/21 DANITZA JARVIS MD July 16, 2021 15:35
[2021-07-16 15:38] LABS: BASOPHILS % (AUTO) 0 % (0-10); EOSINOPHILS # (AUTO) 0.1 10^3/uL (0.0-0.3); EOSINOPHILS % (AUTO) 2 % (0-10); HEMATOCRIT 29 % (35-52); HEMOGLOBIN 9.5 g/dL (11.5-16.0); LYMPHOCYTES # (AUTO) 1.4 10^3/uL (1.0-4.0); LYMPHOCYTES % (AUTO) 30 % (12-44); MEAN CORPUSCULAR HEMOGLOBIN 28 pg (25-34); MEAN CORPUSCULAR HGB CONC 33 g/dL (32-36); MEAN CORPUSCULAR VOLUME 84 fL (80-99); MEAN PLATELET VOLUME 8.8 fL (9.0-12.2); MONOCYTES # (AUTO) 0.3 10^3/uL (0.0-1.0); MONOCYTES % (AUTO) 7 % (0-12); NEUTROPHILS # (AUTO) 2.8 10^3/uL (1.8-7.8); NEUTROPHILS % (AUTO) 60 % (42-75); PLATELET COUNT 221 10^3/uL (130-400); WHITE BLOOD COUNT 4.6 10^3/uL (4.3-11.0)
[2021-07-16 16:01] LABS: ALBUMIN 3.9 GM/DL (3.2-4.5); BILIRUBIN,TOTAL 0.3 MG/DL (0.1-1.0); CALCIUM 9.2 MG/DL (8.5-10.1); CREATININE SERUM 1.44 MG/DL (0.60-1.30); POTASSIUM 4.8 MMOL/L (3.6-5.0); TOTAL PROTEIN 6.7 GM/DL (6.4-8.2)
--- NOTE | 2021-07-16 16:11 | Diagnostic Imaging Report ---
Procedure: CT pelvis without contrast. Technique: Multiple contiguous axial images were obtained through the pelvis without the use of intravenous contrast. Sagittal and coronal reformations were performed. Auto Exposure Controls were utilized during the CT exam to meet ALARA standards for radiation dose reduction. Date: July 16, 2021. Indication: 76-year-old female, left hip pain. History of lumbar spine surgery two weeks ago. Comparison: Right hip radiographs January 15, 2021. Left hip radiographs August 09, 2019. Findings: The hips are not dislocated. There is chondrocalcinosis. The pubic symphysis and sacroiliac joints are normally aligned. There is no identified acute fracture. There is no identified cortical or aggressive bone destruction. Please see separately dictated CT lumbar spine report for findings of the lumbar spine. There are atherosclerotic calcifications. There is no identified focal fluid collection at the level of the pelvis or either hip. There is no free pelvic fluid. Impression: 1. No identified acute abnormality at the level of the pelvis or either hip. 2. Please see separately dictated CT lumbar spine report for specific evaluation of the lumbar spine. Dictated by: Dictated on workstation # [id number]
--- NOTE | 2021-07-16 16:13 | Diagnostic Imaging Report ---
PROCEDURE: CT lumbar spine without contrast. TECHNIQUE: Multiple contiguous axial images were obtained through the lumbar spine without the use of intravenous contrast. Sagittal and coronal reformations were then performed. Auto Exposure Controls were utilized during the CT exam to meet ALARA standards for radiation dose reduction. INDICATION: Low back pain since fusion surgery two weeks ago. COMPARISON: None. FINDINGS: There is posterior fusion of the lumbar spine from L4 to L5 with bilateral pedicle screws and posterior fusion rods. Laminectomy change is noted at L4. No hardware complication is seen. There is significant streak artifact from the hardware. There is a subcutaneous fluid collection posteriorly, most likely it is postoperative seroma which measures at least 2.9 x 2.5 cm in size on axial imaging, and as much as 8.2 cm craniocaudal. No acute fracture is seen in the lumbar spine. There is grade 1 anterolisthesis at L4-L5. There is marked atherosclerosis of the aorta. There is extensive diverticulosis of the sigmoid colon. There appear to be parapelvic cysts in the kidneys, bilaterally. Soft tissues of the spinal canal are suboptimally evaluated on noncontrast CT. No definite high-grade foraminal stenosis is seen. IMPRESSION: 1. Posterior fusion of L4-L5. No evidence of hardware complication. 2. No acute fracture is seen in the lumbar spine. 3. Postsurgical changes with fluid collection in the subcutaneous fat posteriorly. This is most likely a postoperative seroma, although abscess and hematoma are not excluded. Dictated by: Dictated on workstation # [id number]
[2021-07-16] MEDS ORDERED: HYDROcodone/APAP 5 MG/325 MG (LORTAB) TAB PO STA (17:10)
[2021-07-16] MEDS ORDERED: CYCL10TA25 PO (17:14)
== END 2021-07-16 17:22 | disposition home or self-care (01) ==
LOC: EDUNIT# 15:11 → ER FS 15:13
DX: M54.16 Radiculopathy, lumbar region (principal); M43.26 Fusion of spine, lumbar region; R79.82 Elevated C-reactive protein (CRP); Z98.890 Other specified postprocedural states
CPT/HCPCS: 36415; 72131; 72192; 80053; 85025; 86141

== ENCOUNTER 2021-09-15 01:25 | Emergency (ER) | payer MEDICARE, OTHER ==
[~2021-09-15] VITALS: Ht 157.4 cm; Wt 84.0 kg
[~2021-09-15 01:25] MED LIST changes: +CYCL10TA25 PO
[2021-09-15] MEDS ORDERED: NITROGLYCERIN 0.4 MG SL TABS BTL 25'S SL ONE (01:49)
[2021-09-15] MEDS: NITROGLYCERIN 0.4 MG SL TABS BTL 25'S SL PRN ×2 (01:51→01:57)
--- NOTE | 2021-09-15 01:51 | ED Chest Pain ---
General Chief Complaint: Cardiac/General Problems Stated Complaint: COVID +, CHEST PAINS Source: patient, spouse History of Present Illness Date Seen by Provider: Sep 15, 2021 Time Seen by Provider: 01:27 Initial Comments 76-year-old female presenting with complaints of chest pain to the left upper chest going into her left arm. She also has tenderness over the chest wall. She reports having COVID and that today September 15 was day 10 since she was diagnosed. She states that when she started having pain about 1230 tonight she had been sitting during crafts. She took 2 baby aspirin when the pain started. She denies taking any nitroglycerin or anything else for pain. She does have a cardiac history with prior stents and a four-vessel bypass. She follows with Dr. Zapata with cardiology out of [facility] in [place]. Her primary care doctors associated with [facility] in [place]. She denies having sweating, shortness of breath, nausea, vomiting, pain in her neck or jaw. Pain #80 worse with walking or exertion. She states the pain was much worse when it first started but now it is down to a 4 out of 10. She describes the pain as a pressure or squeezing sensation in her chest. She states it feels similar to when she had to have s tents placed in the past. Timing/Duration: 1 hour Severity/Quality: severe, pressure (squeezing/pressure pain in chest) Radiation: shoulders (left shoulder) Activities at Onset: other (sitting in chair doing crafts) Prior CP/Workup: angina, heart attack, other (prior stents and 4 vessel CABG) Modifying Factors: improves with other (nothing was making it better or worse. 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) NTG SL TABLET MACHINE OPERATOR: No Associated Symptoms: No abdominal pain, No back pain, No diaphoresis, No di zziness, No edema, No fatigue, No fever/chills, No headache, No heartburn, No nausea/vomiting, No rash, No shortness of breath, No swelling/lump in chest, No syncope, No weakness Allergies and Home Medications Allergies Coded Allergies: acetaminophen (Verified Allergy, Unknown, 03/06/19) amoxicillin (Verified Allergy, Unknown, 03/06/19) azithromycin (Verified Allergy, Unknown, 03/06/19) baclofen (Verified Allergy, Unknown, 03/06/19) clarithromycin (Verified Allergy, Unknown, 03/06/19) lisinopril (Verified Allergy, Unknown, 03/06/19) meperidine (Verified Allergy, Unknown, 03/06/19) propoxyphene (Verified Allergy, Unknown, 03/06/19) Patient Home Medication List Home Medication List Reviewed: Yes Acetaminophen (Tylenol Arthritis) 650 Mg Tablet.er, 1,300 MG PO TID, (Reported) Entered as Reported by: SOTERO VIRAMONTES on 07/09/20 1143 Aspirin (Aspirin) 81 Mg Tab.chew, 81 MG PO DAILY, (Reported) Entered as Reported by: SOTERO VIRAMONTES on 07/09/20 1143 Atorvastatin Calcium (Atorvastatin Calcium) 40 Mg Tablet, 40 MG PO HS, (Reported) Entered as Reported by: SOTERO VIRAMONTES on 07/09/20 1136 Citalopram Hydrobromide (Citalopram HBr) 40 Mg Tablet, 40 MG PO DAILY, (Reported) Entered as Reported by: SOTERO VIRAMONTES on 07/09/20 1136 Clopidogrel Bisulfate (Clopidogrel) 75 Mg Tablet, 75 MG PO HS, (Reported) Entered as Reported by: SOTERO VIRAMONTES on 07/09/20 1136 Cyclobenzaprine HCl (Cyclobenzaprine HCl) 10 Mg Tablet, 10 MG PO BID PRN for muscle spasms/back pain Prescribed by: DANITZA JARVIS on 07/16/21 1714 Furosemide (Furosemide) 20 Mg Tablet, 20 MG PO DAILY, (Reported) Entered as Reported by: SOTERO VIRAMONTES on 07/09/20 1136 Gabapentin (Neurontin) 300 Mg Capsule, 300 MG PO TID, (Reported) Entered as Reported by: YENY CLAY on 07/11/20 1041 Insulin Glargine,Hum.rec.anlog (Toujeo Solostar) 300 Unit/1 Ml Insuln.pen, 45 UNIT SQ DAILY, (Reported) Entered as Reported by: SOTERO VIRAMONTES on 07/09/20 1140 Insulin Glulisine (Apidra Solostar) 100 Unit/1 Ml Insuln.pen, UNITS SQ TIDWM, (Reported) Entered as Reported by: SOTERO VIRAMONTES on 07/09/20 1140 Isosorbide Mononitrate (Isosorbide Mononitrate ER) 30 Mg Tab.er.24h, 30 MG PO DAILY, (Reported) Entered as Reported by: GILDARDO NEAL on 09/15/21 0213 Last Action: New Order Loratadine (Loratadine) 10 Mg Tablet, 10 MG PO DAILY, (Reported) Entered as Reported by: YENY CLAY on 07/11/20 1041 Magnesium Oxide (Magnesium) 400 Mg Tablet, 400 MG PO BID, (Reported) Entered as Reported by: YENY CLAY on 07/11/20 1041 Metformin HCl (Metformin HCl ER) 500 Mg Tab.er.24h, 500 MG PO HS, (Reported) Entered as Reported by: SOTERO VIRAMONTES on 07/09/20 1136 Metoprolol Tartrate (Metoprolol Tartrate) 25 Mg Tablet, 25 MG PO BID, (Reported) Entered as Reported by: SOTERO VIRAMONTES on 07/09/20 1136 Multivitamin (Multi-Vitamin Daily) 1 Each Tablet, 1 EACH PO DAILY, (Reported) Entered as Reported by: SOTERO VIRAMONTES on 07/09/20 1143 Mv-Mn/Iron/FA/Herbal Cmplx#190 (Vitamin D3 Complete Caplet) 1 Each Tablet, 1 EACH PO DAILY, (Reported) Entered as Reported by: SOTERO VIRAMONTES on 07/09/20 1143 Omeprazole (Omeprazole) 20 Mg Tablet.dr, 20 MG PO DAILY, (Reported) Entered as Reported by: YENY CLAY on 07/11/20 1041 Oxycodone HCl/Acetaminophen (Oxycodone-Acetaminophen 5-325) 1 Each Tablet, 1 EACH PO Q4H PRN for PAIN-MODERATE Prescribed by: CRUZ ISBELL on 01/15/21 0500 Ropinirole HCl (Ropinirole HCl) 1 Mg Tablet, 2 MG PO HS, (Reported) Entered as Reported by: SOTERO VIRAMONTES on 07/09/20 1136 Ropinirole HCl (Ropinirole HCl) 1 Mg Tablet, 1 MG PO 1400, (Reported) Entered as Reported by: YENY CLAY on 07/11/20 1041 Vitamin B Complex (Vitamin B Complex) 1 Each Capsule, 1 EACH PO DAILY, (Repor clementine) Entered as Reported by: SOTERO VIRAMONTES on 07/09/20 1143 Review of Systems Review of Systems Constitutional: No chills, No diaphoresis, No dizziness, No fever EENTM: No Symptoms Reported Respiratory: Cough Cardiovascular: See HPI Gastrointestinal: See HPI Genitourinary: No Symptoms Reported Musculoskeletal: see HPI (tender to palpation on left upper chest wall where she has pain) Skin: No rash Psychiatric/Neurological: Anxiety Endocrine: No Symptoms Reported Hematologic/Lymphatic: Easy Bleeding, Easy Bruising Past Kcurcgk-Nkbwrf-Xpcnch Hx Patient Social History Tobacco Use?: No Use of E-Cig and/or Vaping dev: No Substance use?: No Alcohol Use?: No Immunizations Up To Date First/Initial COVID19 Vaccinat: June Second COVID19 Vaccination Mykel: Fatoumata June 2020 Seasonal Allergies Seasonal Allergies: No Past Medical History Surgery/Hospitalization HX: Insulin dependent diabetes, hypertension, coronary artery disease, chronic renal insufficiency, Lumbar spine fusion June 2021 Surgeries: Yes CABG, Coronary Stent, Eye Surgery, Open Heart Surgery Respiratory: No Cardiac: Yes Coronary Artery Disease, High Cholesterol, Hypertension Neurological: No Genitourinary: Yes (Chronic kidney disease) Gastrointestinal: No Musculoskeletal: No Endocrine: Yes Diabetes, Non-Insulin dep HEENT: No Cancer: No Psychosocial: No Integumentary: No Blood Disorders: No Family Medical History Noncontributory Physical Exam Vital Signs Vital Signs - First Documented 09/15/21 09/15/21 01:28 01:50 Temp 36.8 Pulse 84 Resp 20 B/P (MAP) 162/67 (98) Pulse Ox 96 O2 Delivery Room Air Capillary Refill : Height, Weight, BMI Height: '" Weight: lbs. oz. kg; 35.00 BMI Method: General Appearance: Obese HEENT: PERRL/EOMI, Pharynx Normal Neck: Full Range of Motion, Normal Inspection, Non Tender, Supple Respiratory: Lungs Clear, Normal Breath Sounds, No Accessory Muscle Use, No Respiratory Distress, Other (tender to palpation left upper chest wall where she is having pain) Cardiovascular: Regular Rate, Rhythm, No Murmur, Normal Peripheral Pulses Gastrointestinal: Normal Bowel Sounds, No Pulsatile Mass, Non Tender, Soft Rectal: Deferred Extremity: Normal Capillary Refill, Normal Inspection, No Calf Tenderness, No Pedal Edema Neurologic/Psychiatric: Alert, Oriented x3, box maker wood II-XII Norm as Tested Skin: Normal Color, Warm/Dry Images 1 - pressure or squeezing pain in left upper chest and tender to palpation to the same area Progress/Results/Core Measures Results/Orders Lab Results Laboratory Tests Test 09/15/21 01:40 09/15/21 02:20 09/15/21 03:25 Range/Units White Blood Count 5.4 4.3-11.0 10^3/uL Red Blood Count 3.67 L 3.80-5.11 10^6/uL Hemoglobin 9.3 L 11.5-16.0 g/dL Hematocrit 30 L 35-52 % Mean Corpuscular Volume 82 80-99 fL Mean Corpuscular Hemoglobin 25 25-34 pg Mean Corpuscular Hemoglobin Concent 31 L 32-36 g/dL Red Cell Distribution Width 15.2 H 10.0-14.5 % Platelet Count 189 130-400 10^3/uL Mean Platelet Volume 11.2 9.0-12.2 fL Immature Granulocyte % (Auto) 1 % Neutrophils (%) (Auto) 66 42-75 % Lymphocytes (%) (Auto) 24 12-44 % Monocytes (%) (Auto) 8 0-12 % Eosinophils (%) (Auto) 1 0-10 % Basophils (%) (Auto) 0 0-10 % Neutrophils # (Auto) 3.5 1.8-7.8 10^3/uL Lymphocytes # (Auto) 1.3 1.0-4.0 10^3/uL Monocytes # (Auto) 0.4 0.0-1.0 10^3/uL Eosinophils # (Auto) 0.1 0.0-0.3 10^3/uL Basophils # (Auto) 0.0 0.0-0.1 10^3/uL Immature Granulocyte # (Auto) 0.0 0.0-0.1 10^3/uL Prothrombin Time 12.3 12.2-14.7 SEC INR Comment 0.9 0.8-1.4 Activated Partial Thromboplast Time 29 24-35 SEC Sodium Level 129 L 135-145 MMOL/L Potassium Level 5.7 H 3.6-5.0 MMOL/L Chloride Level 97 L 98-107 MMOL/L Carbon Dioxide Level 24 21-32 MMOL/L Anion Gap 8 5-14 MMOL/L Blood Urea Nitrogen 26 H 7-18 MG/DL Creatinine 1.57 H 0.60-1.30 MG/DL Estimat Glomerular Filtration Rate 34 BUN/Creatinine Ratio 17 Glucose Level 655 *H 70-105 MG/DL Calcium Level 8.5 8.5-10.1 MG/DL Corrected Calcium 8.7 8.5-10.1 MG/DL Magnesium Level 1.7 1.6-2.4 MG/DL Total Bilirubin 0.2 0.1-1.0 MG/DL Aspartate Amino Transf (AST/SGOT) 55 H 5-34 U/L Alanine Aminotransferase (ALT/SGPT) 34 0-55 U/L Alkaline Phosphatase 121 40-136 U/L Myoglobin 54.8 <58.0 NG/ML Troponin I < 0.30 <0.30 NG/ML Pro-B-Type Natriuretic Peptide 1200.0 H <450.0 PG/ML Total Protein 6.4 6.4-8.2 GM/DL Albumin 3.8 3.2-4.5 GM/DL Lipase 57 8-78 U/L Glucometer 561 *H 328 H 70-110 MG/DL My Orders Orders - DANITZA JARVIS MD Cbc With Automated Diff (09/15/21:44) Magnesium (09/15/21:44) Chest 1 View Ap/Pa Only (09/15/21:44) Ekg Tracing (09/15/21:44) Comprehensive Metabolic Panel (09/15/21:44) Myoglobin Serum (09/15/21:44) Protime With Inr (09/15/21:44) Partial Thromboplastin Time (09/15/21:44) O2 (09/15/21:44) Monitor-Rhythm Ecg Trace Only (09/15/21:44) Nitroglycerin 0.4 Mg Btl 25's (Nitrostat (09/15/21 01:45) Ed Iv/Invasive Line Start (09/15/21:44) Lipase (09/15/21:44) Troponin I Fs (09/15/21 01:44) Probnp Fs (09/15/21:44) Accucheck Stat ONCE (09/15/21 02:18) Ns Iv 500 Ml (Sodium Chloride 0.9%) (09/15/21 02:25) Insulin (Regular) Human (Novolin R (Per (09/15/21 02:25) Accucheck Stat ONCE (09/15/21 03:16) Medications Given in ED Current Medications Medications Dose Ordered Sig/Kristen Route Start Time Stop Time Status Last Admin Dose Admin Nitroglycerin 0.4 mg UD PRN SL 09/15/21 01:45 09/15/21 01:57 0.4 MG Vital Signs/I&O 09/15/21 09/15/21 09/15/21 09/15/21 01:28 01:50 01:57 02:03 Temp 36.8 Pulse 84 80 83 87 Resp B/P (MAP) 162/67 (98) 132/62 122/61 111/62 Pulse Ox 96 96 96 O2 Delivery Room Air Room Air Room Air Progress Progress Note #1: Progress Note Obtain labs and cardiac enzymes as well as electrocardiogram and chest x-ray. Since she already took 162 mg of aspirin at home will defer any further aspirin for now. Will order sublingual nitroglycerin to try and help with her pain. Initial electrocardiogram does not show any acute ST elevation or ischemic ch anges. Differential diagnosis includes musculoskeletal chest pain, chest wall pain, anxiety, pneumonia, COVID, acute coronary syndrome, myocardial infarction Progress Note #2: Progress Note CBC stable from June 2021 with anemia of Hgb 9.3. CXR appears similar to prior imaging with some mild increased perihilar markings but no effusion. Pain resolved after nitroglycerin. Progress Note #3: Progress Note Lab called with her glucose elevated to 655. Potassium 5.7. Troponin is <0.3, ProBNP is 1200. She has chronic renal insufficiency which is stable. will give NS 500 mL fluid bolus and Regular insulin 10 units IV and then recheck her glucose. As long as she is coming down and she is remaining chest pain free will discharge to home and have her follow up with Dr. Zapata and Dr. Yoo in [place] for continued management Progress Note #4: Progress Note After IV fluid and insulin administered patient's blood sugar improved. She continued to be pain-free. Will discharge home and have her continue to use Toujeo and Apidra. Counseled to follow-up with Dr. Yoo and Dr. Zapata about her symptoms. They may need to adjust her meds for her sugars as well as see if they need to recheck her heart. Initial ECG Impression Date: Sep 15, 2021 Initial ECG Impression Time: 01:31 Initial ECG Rate: 86 Initial ECG Rhythm: Normal Sinus Initial ECG Comparisson: Unchanged Comment Normal sinus rhythm with a heart rate of [address] elevation. RI interval 197 ms. QT interval 348 ms with a QTc interval 391 ms. Overall appears similar to prior tracings in the system. Diagnostic Imaging Diagonstic Imaging: Xray Plain Films/CT/US/NM/MRI: chest Comments On my review of her 1 view chest x-ray she has stable appearing film from prior imaging. She has some mild increase in the perihilar markings but no definite infiltrate or effusion Reviewed: Reviewed by Me Departure Impression Primary Impression: Left-sided chest pain Additional Impressions: COVID-19 virus infection Hyperglycemia due to diabetes mellitus Chronic renal insufficiency, stage III (moderate) Qualified Codes: N18.32 - Chronic kidney disease, stage 3b Diabetes mellitus with chronic kidney disease, without long-term current use of insulin Qualified Codes: E11.22 - Type 2 diabetes mellitus with diabetic chronic kidney disease; N18.32 - Chronic kidney disease, stage 3b Disposition: 01 HOME, SELF-CARE Condition: Stable Departure-Patient Inst. Decision time for Depature: 03:15 Referrals: GENEVIEVE YOO DO (PCP) Primary Care Physician CHRISTINE ZAPATA MD (Family) Primary Care Physician Patient Instructions: Chest Pain, Adult ED, How to Prevent High Blood Sugar Emergencies in Diabetes Add. Discharge Instructions: Stay well hydrated and continue taking your regular medicines. Check back with Dr. Zapata and Dr. Yoo in [place] about your chest pain symptoms and high sugars. They may want to see you soon to recheck for other heart problems or to see if you need adjustment of your medicine dosages. All discharge instructions reviewed with patient and/or family. Voiced understanding. DANITZA JARVIS MD Sep 15, 2021 01:51
[2021-09-15 02:04] LABS: BASOPHILS % (AUTO) 0 % (0-10); EOSINOPHILS # (AUTO) 0.1 10^3/uL (0.0-0.3); EOSINOPHILS % (AUTO) 1 % (0-10); HEMATOCRIT 30 % (35-52); HEMOGLOBIN 9.3 g/dL (11.5-16.0); LYMPHOCYTES # (AUTO) 1.3 10^3/uL (1.0-4.0); LYMPHOCYTES % (AUTO) 24 % (12-44); MEAN CORPUSCULAR HEMOGLOBIN 25 pg (25-34); MEAN CORPUSCULAR HGB CONC 31 g/dL (32-36); MEAN CORPUSCULAR VOLUME 82 fL (80-99); MEAN PLATELET VOLUME 11.2 fL (9.0-12.2); MONOCYTES # (AUTO) 0.4 10^3/uL (0.0-1.0); MONOCYTES % (AUTO) 8 % (0-12); NEUTROPHILS # (AUTO) 3.5 10^3/uL (1.8-7.8); NEUTROPHILS % (AUTO) 66 % (42-75); PLATELET COUNT 189 10^3/uL (130-400); WHITE BLOOD COUNT 5.4 10^3/uL (4.3-11.0)
[2021-09-15 02:12] LABS: INR 0.9 (0.8-1.4); PROTHROMBIN TIME PATIENT 12.3 SEC (12.2-14.7)
[2021-09-15] MEDS ORDERED: ISOS30TA82 PO (02:13)
[2021-09-15 02:18] LABS: POTASSIUM 5.7 MMOL/L (3.6-5.0)
[2021-09-15 02:21] LABS: ALBUMIN 3.8 GM/DL (3.2-4.5); BILIRUBIN,TOTAL 0.2 MG/DL (0.1-1.0); CALCIUM 8.5 MG/DL (8.5-10.1); CREATININE SERUM 1.57 MG/DL (0.60-1.30); MAGNESIUM 1.7 MG/DL (1.6-2.4); TOTAL PROTEIN 6.4 GM/DL (6.4-8.2)
[2021-09-15] MEDS ORDERED: inSUlin (REGULAR) HUMAN 1 UNIT/0.01 ML (CHARGE PER UNIT) IV STA (02:25)
[2021-09-15] MEDS ORDERED: NS IV 500 ML 500 ML IV STA (02:25)
[2021-09-15] MEDS ORDERED: inSUlin (REGULAR) HUMAN 1 UNIT/0.01 ML (CHARGE PER UNIT) ONE (02:37)
[2021-09-15] MEDS ORDERED: NS IV 500 ML 500 ML ONE (02:38)
[2021-09-15 03:35] VITALS: BP 130/62
--- NOTE | 2021-09-15 06:04 | Diagnostic Imaging Report ---
INDICATION: Left-sided chest pain, Covid positive. Frontal chest obtained at 01:52 a.m. is compared to 07/09/2020. FINDINGS: There is poststernotomy change. The heart is normal in size. There is increased central vascular congestion with some right perihilar and basilar infiltrate. There is no pneumothorax or pleural fluid. IMPRESSION: Postop changes. Increased central vascular congestion with some right perihilar infiltrate and basilar infiltrate. Dictated by: Dictated on workstation # [id number]
== END 2021-09-15 03:35 | disposition home or self-care (01) ==
LOC: EDUNIT# 01:25 → ER FS 01:29
DX: U07.1 COVID-19 (principal); E11.22 Type 2 diabetes mellitus with diabetic chronic kidney disease; I12.9 Hypertensive chronic kidney disease with stage 1 through stage 4 chronic kidney disease, or unspecified chronic kidney disease; N18.30 Chronic kidney disease, stage 3 unspecified; E11.65 Type 2 diabetes mellitus with hyperglycemia; E66.9 Obesity, unspecified; Z68.35 Body mass index [BMI] 35.0-35.9, adult; Z73.0 Burn-out
CPT/HCPCS: 36415; 71045; 80053; 82947; 83690; 83735; 83874; 83880; 84484; 85025; 85610; 85730; 93005; 93041

== ENCOUNTER 2022-03-27 16:47 | Emergency (ER) | payer MEDICARE, OTHER ==
[~2022-03-27] VITALS: Ht 157.5 cm; Wt 74.7 kg
[~2022-03-27 16:47] MED LIST changes: +ISOS30TA82 PO
[2022-03-27 16:52] VITALS: BP 108/68
--- NOTE | 2022-03-27 17:06 | ED Head Injury ---
General Chief Complaint: Head/Cervical Problems Stated Complaint: FELL BATHTUB,HIT HEAD,NUMB FINGERS, BLD SUGAR HIGH Source: patient Exam Limitations: no limitations History of Present Illness Date Seen by Provider: Mar 27, 2022 Time Seen by Provider: 16:51 Initial Comments 76-year-old female presents to the emergency department today after a fall last night. She states she has had right hand cramping and weakness, dropping things today. She also has numbness in her left hand which is more chronic in nature. She does also endorse some numbness in her right hand. She simply slipped in the bathtub and hit her head on the side of the bathtub. She is supposed to be on Plavix but has stopped taking it for an upcoming dental procedure. She denies loss of consciousness. She does endorse some left hip pain but she has been walking on her hip all day and states this is actually getting better. She denies any neck pain. Allergies and Home Medications Allergies Coded Allergies: acetaminophen (Verified Allergy, Unknown, 03/06/19) amoxicillin (Verified Allergy, Unknown, 03/06/19) azithromycin (Verified Allergy, Unknown, 03/06/19) baclofen (Verified Allergy, Unknown, 03/06/19) clarithromycin (Verified Allergy, Unknown, 03/06/19) lisinopril (Verified Allergy, Unknown, 03/06/19) meperidine (Verified Allergy, Unknown, 03/06/19) propoxyphene (Verified Allergy, Unknown, 03/06/19) Patient Home Medication List Home Medication List Reviewed: Yes Acetaminophen (Tylenol Arthritis) 650 Mg Tablet.er, 1,300 MG PO TID, (Reported) Entered as Reported by: SOTERO VIRAMONTES on 07/09/20 1143 Aspirin (Aspirin) 81 Mg Tab.chew, 81 MG PO DAILY, (Reported) Entered as Reported by: SOTERO VIRAMONTES on 07/09/20 1143 Atorvastatin Calcium (Atorvastatin Calcium) 40 Mg Tablet, 40 MG PO HS, (Reported) Entered as Reported by: SOTERO VIRAMONTES on 07/09/20 1136 Citalopram Hydrobromide (Citalopram HBr) 40 Mg Tablet, 40 MG PO DAILY, (Reported) Entered as Reported by: SOTERO VIRAMONTES on 07/09/20 1136 Clopidogrel Bisulfate (Clopidogrel) 75 Mg Tablet, 75 MG PO HS, (Reported) Entered as Reported by: SOTERO VIRAMONTES on 07/09/20 1136 Cyclobenzaprine HCl (Cyclobenzaprine HCl) 10 Mg Tablet, 10 MG PO BID PRN for muscle spasms/back pain Prescribed by: DANITZA JARVIS on 07/16/21 1714 Furosemide (Furosemide) 20 Mg Tablet, 20 MG PO DAILY, (Reported) Entered as Reported by: SOTERO VIRAMONTES on 07/09/20 1136 Gabapentin (Neurontin) 300 Mg Capsule, 300 MG PO TID, (Reported) Entered as Reported by: YENY CLAY on 07/11/20 1041 Insulin Glargine,Hum.rec.anlog (Toujeo Solostar) 300 Unit/1 Ml Insuln.pen, 45 UNIT SQ DAILY, (Reported) Entered as Reported by: SOTERO VIRAMONTES on 07/09/20 1140 Insulin Glulisine (Apidra Solostar) 100 Unit/1 Ml Insuln.pen, UNITS SQ TIDWM, (Reported) Entered as Reported by: SOTERO VIRAMONTES on 07/09/20 1140 Isosorbide Mononitrate (Isosorbide Mononitrate ER) 30 Mg Tab.er.24h, 30 MG PO DAILY, (Reported) Entered as Reported by: GILDARDO NEAL on 09/15/21 0213 Loratadine (Loratadine) 10 Mg Tablet, 10 MG PO DAILY, (Reported) Entered as Reported by: YENY CLAY on 07/11/20 1041 Magnesium Oxide (Magnesium) 400 Mg Tablet, 400 MG PO BID, (Reported) Entered as Reported by: YENY CLAY on 07/11/20 1041 Metformin HCl (Metformin HCl ER) 500 Mg Tab.er.24h, 500 MG PO HS, (Reported) Entered as Reported by: SOTERO VIRAMONTES on 07/09/20 1136 Metoprolol Tartrate (Metoprolol Tartrate) 25 Mg Tablet, 25 MG PO BID, (Reported) Entered as Reported by: SOTERO VIRAMONTES on 07/09/20 1136 Multivitamin (Multi-Vitamin Daily) 1 Each Tablet, 1 EACH PO DAILY, (Reported) Entered as Reported by: SOTERO VIRAMONTES on 07/09/20 1143 Mv-Mn/Iron/FA/Herbal Cmplx#190 (Vitamin D3 Complete Caplet) 1 Each Tablet, 1 EACH PO DAILY, (Reported) Entered as Reported by: SOTERO VIRAMONTES on 07/09/20 1143 Omeprazole (Omeprazole) 20 Mg Tablet.dr, 20 MG PO DAILY, (Reported) Entered as Reported by: YENY CLAY on 07/11/20 1041 Oxycodone HCl/Acetaminophen (Oxycodone-Acetaminophen 5-325) 1 Each Tablet, 1 EACH PO Q4H PRN for PAIN-MODERATE Prescribed by: CRUZ ISBELL on 01/15/21 0500 Ropinirole HCl (Ropinirole HCl) 1 Mg Tablet, 2 MG PO HS, (Reported) Entered as Reported by: SOTERO VIRAMONTES on 07/09/20 1136 Ropinirole HCl (Ropinirole HCl) 1 Mg Tablet, 1 MG PO 1400, (Reported) Entered as Reported by: YENY CLAY on 07/11/20 1041 Vitamin B Complex (Vitamin B Complex) 1 Each Capsule, 1 EACH PO DAILY, (Report ed) Entered as Reported by: SOTERO VIRAMONTES on 07/09/20 1143 Review of Systems Review of Systems Constitutional: no symptoms reported Eyes: No Symptoms Reported Ears, Nose, Mouth, Throat: no symptoms reported Respiratory: no symptoms reported Cardiovascular: no symptoms reported Gastrointestinal: no symptoms reported Genitourinary: no symptoms reported Musculoskeletal: joint pain (Left hip) Skin: no symptoms reported Psychiatric/Neurological: Numbness, Weakness Endocrine: No Symptoms Reported Hematologic/Lymphatic: No Symptoms Reported Past Znxiqux-Gdfptd-[id number] Hx Patient Social History Tobacco Use?: No Use of E-Cig and/or Vaping dev: No Substance use?: No Alcohol Use?: No Immunizations Up To Date First/Initial COVID19 Vaccinat: ? 2020 Second COVID19 Vaccination Mykel: ? 2020 Seasonal Allergies Seasonal Allergies: No Past Medical History Surgery/Hospitalization HX: HTN, DM, CKD, Quad CABG Surgeries: Yes CABG, Coronary Stent, Eye Surgery, Open Heart Surgery Respiratory: No Cardiac: Yes Coronary Artery Disease, High Cholesterol, Hypertension Neurological: No Genitourinary: Yes (Chronic kidney disease) Gastrointestinal: No Musculoskeletal: No Endocrine: Yes Diabetes, Non-Insulin dep HEENT: No Cancer: No Psychosocial: No Integumentary: No Blood Disorders: No Family Medical History Reviewed Nursing Family Hx No Pertinent Family Hx Noncontributory Physical Exam Vital Signs Vital Signs - First Documented 03/27/22 16:52 Temp 36.5 Pulse 111 Resp 18 B/P (MAP) 108/68 (81) Pulse Ox 98 O2 Delivery Room Air Capillary Refill : Height, Weight, BMI Height: '" Weight: lbs. oz. kg; 33.00 BMI Method: General Appearance: WD/WN, no apparent distress HEENT: PERRL/EOMI, normal ENT inspection, TMs normal, pharynx normal Neck: non-tender, supple Cardiovascular: regular rate, rhythm, no murmur Respiratory: chest non-tender, lungs clear, normal breath sounds, no r espiratory distress, no accessory muscle use Gastrointestinal: normal bowel sounds, non tender, soft, no organomegaly Back: normal inspection, no CVA tenderness, no vertebral tenderness Extremities: normal range of motion, non-tender, normal inspection, no pedal edema, no calf tenderness, normal capillary refill Psychiatric: alert, oriented x 3 Crainal Nerves: normal speech Coordination/Gait: normal finger to nose, normal gait Motor/Sensory: no motor deficit, no sensory deficit Skin: normal color, warm/dry Lymphatic: no adenopathy Progress/Results/Core Measures Results/Orders Lab Results Laboratory Tests Test 03/27/22 16:59 Range/Units Glucometer 410 *H 70-110 MG/DL My Orders Orders - AMEENA GARCIA DO Ct Head/Cervical Spine Wo (03/27/22 17:05) Vital Signs/I&O 03/27/22 16:52 Temp 36.5 Pulse 111 Resp 18 B/P (MAP) 108/68 (81) Pulse Ox 98 O2 Delivery Room Air Departure Communication (Admissions) The patient is hemodynamically stable. Neurologically intact with no weakness on exam. CT head/cervical spine negative for any acute findings. Still some concern mildly for a mild central cord syndrome given her hand symptoms and lack of leg symptoms. If present it is not really seen on exam and would be mild. I believe she stable for follow-up with her primary care doctor. There is no intra cranial hemorrhage, skull fracture. No cervical or upper thoracic spine fractures. Left hip he is mildly tender, she is ambulatory and this is not worse with range of motion on exam. Low likelihood for fracture no indication for imaging here. Discharge with supportive care and close follow-up. Impression Primary Impression: Bilateral hand numbness Additional Impressions: Left hip pain Fall Qualified Codes: W19.XXXA - Unspecified fall, initial encounter Disposition: HOME, SELF-CARE Condition: Stable Departure-Patient Inst. Referrals: GENEVIEVE HUFF DO (PCP) Primary Care Physician CHRISTINE YI MD (Family) Primary Care Physician Patient Instructions: Hip Pain, Head Injury Observation (DC) Add. Discharge Instructions: The CT scan of your head and neck are negative. Please use ibuprofen as needed for pains. Should your hand symptoms persist you need to follow-up with your primary doctor for possible MRI. This is not available in the emergency department. Return to the emergency department for any severe concerns. Harshado w-up with your primary doctor for any nonemergent needs All discharge instructions reviewed with patient and/or family. Voiced understanding. AMEENA GARCIA DO Mar 27, 2022 17:06
--- NOTE | 2022-03-27 17:39 | Diagnostic Imaging Report ---
PROCEDURE: CT head and CT cervical spine without contrast. TECHNIQUE: Multiple contiguous axial images were obtained through the brain and cervical spine without the use of intravenous contrast. Sagittal and coronal reformations through the cervical spine were then performed. Auto Exposure Controls were utilized during the CT exam to meet ALARA standards for radiation dose reduction. INDICATION: Fall with head and neck injury. COMPARISON: No prior studies are available for comparison. FINDINGS: CT HEAD: Ventricles and sulci are prominent, consistent with cerebral volume loss. No sulcal effacement or midline shift is identified. No acute intra-axial or extra-axial hemorrhage is detected. Cisterns are patent. Visualized paranasal sinuses are clear. IMPRESSION: Cerebral atrophy. No acute intracranial process is detected. CT CERVICAL SPINE: There is slight reversal of the normal cervical lordotic curvature. There is minimal anterolisthesis of C2 on C3 and C4 on C5. Degenerative disc disease at C5-C6 level is noted with disc space narrowing and marginal spurring. There is multilevel facet arthropathy. No fractures are identified. Odontoid appears intact. Prevertebral tissues are within normal limits. IMPRESSION: Cervical spondylosis with reversal of the normal cervical lordotic curvature. No acute bony abnormality is detected. Dictated by: Dictated on workstation # [id number]
== END 2022-03-27 17:53 | disposition home or self-care (01) ==
LOC: EDUNIT# 16:47 → ER FS 16:51
DX: R20.0 Anesthesia of skin (principal); M25.552 Pain in left hip; W18.2XXA Fall in (into) shower or empty bathtub, initial encounter; W22.8XXA Striking against or struck by other objects, initial encounter
CPT/HCPCS: 70450; 72125; 82947